=== PATIENT | female | born 1935 | race Caucasian/White ===

== ENCOUNTER → 2016-07-04 | Day surgery (SDC) | payer MEDICARE ==
[~2016-07-04] VITALS: Ht 157.5 cm; Wt 59.0 kg
[~2016-07-04] MED LIST: ASPI81TA85 PO; LIDOCAINE 1% MDV 20ML VIAL As Ordered ONE; LIDOCAINE 2% INJ 100 MG/5 ML SDV (FOR ANES.) As Ordered ONE; LR 1,000 ML IV SCH; MIDAZOLAM INJ 2 MG/2 ML VIAL (J2250) As Ordered ONE; OMEP20CA3 PO; ONDANSETRON 4MG/2ML VIAL (J2405) As Ordered ONE; PROPOFOL 200 MG/20 ML VIAL As Ordered ONE; TAMO20TA4 PO; VITA400T2 PO; VITAD1000T PO; fentaNYL 100 MCG/2 ML INJECTION (J3010) As Ordered ONE
[2016-07-04 10:15] VITALS: BP 190/83
--- NOTE | 2016-07-04 10:26 | RO ---
DATE OF PROCEDURE: 07/04/2016 PREOPERATIVE DIAGNOSIS: Endometrial hyperplasia. POSTOPERATIVE DIAGNOSIS: Endometrial hyperplasia. PROCEDURE: Hysteroscopy, dilation and curettage (D and C). SURGEON: Dr. Remi Sarabia STOCK PATCH SAWYER: ANESTHESIA: Local sedation. ESTIMATED BLOOD LOSS: Minimal. FINDINGS: Normal appearing endometrial cavity. Significant vaginal atrophy. Normal sized uterus. OPERATIVE SUMMARY: The patient taken to the operating room where IV sedation was given. She was prepped and draped in sterile fashion in the dorsal lithotomy position. Speculum was placed in the vagina. Cervix was injected circumferentially with 18 mL of 1% lidocaine. The anterior lip of the cervix grasped with a tenaculum. The cervix was dilated with tapered dilators. Diagnostic hysteroscope using normal saline as a distention medium was placed through the internal os. Visualization of the endometrial cavity revealed the findings noted above. Sharp curettage was performed. The specimen was sent to pathology. All instruments were removed. Sponge and instrument counts were correct.
== END | disposition home or self-care (01) ==
LOC: M SDC 06:30
PROVIDERS: ATTEND Specialist
DX: N85.00 Endometrial hyperplasia, unspecified (principal); M12.9 Arthropathy, unspecified; C50.919 Malignant neoplasm of unspecified site of unspecified female breast; K21.9 Gastro-esophageal reflux disease without esophagitis; Z91.040 Latex allergy status; Z88.1 Allergy status to other antibiotic agents; Z79.899 Other long term (current) drug therapy; Z79.82 Long term (current) use of aspirin; Z98.51 Tubal ligation status; I71.4 Abdominal aortic aneurysm, without rupture
CPT/HCPCS: 36415; 58558; 85014; 85018; 88305; J2250; J2405; J3010

== ENCOUNTER → 2016-08-15 | Outpatient (CLI) | payer MEDICARE ==
[~2016-08-15] MED LIST changes: -LIDOCAINE 1% MDV 20ML VIAL As Ordered ONE; -LIDOCAINE 2% INJ 100 MG/5 ML SDV (FOR ANES.) As Ordered ONE; -LR 1,000 ML IV SCH; -MIDAZOLAM INJ 2 MG/2 ML VIAL (J2250) As Ordered ONE; -ONDANSETRON 4MG/2ML VIAL (J2405) As Ordered ONE; -PROPOFOL 200 MG/20 ML VIAL As Ordered ONE; -fentaNYL 100 MCG/2 ML INJECTION (J3010) As Ordered ONE
--- NOTE | 2016-08-15 09:44 | REPMRS ---
Patient History The patient states she had a clinical breast exam in 03/2016. 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 No known family history of cancer. Benign radio exam breast specimen of the right breast, November 26, 2013. Benign localization of breast nodule of the right breast, November 26, 2013. Malignant radio exam breast specimen of the right breast, October 10, 2013. Malignant stereotatic loc for ea lesion of the right breast, October 10, 2013. Taking tamoxifen for 2 years. Digital Woman Screen Mammo: August 15, 2016 - Exam #: [id number] Bilateral CC and MLO view(s) were taken. Technologist: Sarah Arias, Technologist Prior study comparison: September 03, 2015, digital woman screen mammo performed at [facility]. September 01, 2014, digital woman screen mammo performed at [facility]. FINDINGS: There are scattered fibroglandular densities. There has been no change in the appearance of the mammogram from the prior studies. There is a mild amount of residual fibroglandular tissue which is fairly symmetric. There is no interval development of dominant mass, architectural distortion, or clustered microcalcification suggestive of malignancy. ASSESSMENT: BI-RADS/ACR category 1 mammogram. Negative. Recommendation Routine screening mammogram in 1 year (for women over age 40). This mammogram was interpreted with the aid of an FDA-approved computer-aided dectection system. Electronically Signed By: Leonard Burdick MD 08/15/16 0943
== END ==
LOC: M WHC 09:02
PROVIDERS: ATTEND Internal Medicine Medical Oncology
DX: Z12.31 Encounter for screening mammogram for malignant neoplasm of breast (principal); Z78.0 Asymptomatic menopausal state; Z79.810 Long term (current) use of selective estrogen receptor modulators (SERMs); Z85.3 Personal history of malignant neoplasm of breast

== ENCOUNTER → 2016-10-03 | Outpatient (REF) | payer MEDICARE | LOC: M LAB REF 16:58 | PROVIDERS: ATTEND Surgery | DX: D48.5 Neoplasm of uncertain behavior of skin (principal) ==

== ENCOUNTER → 2017-02-14 | Outpatient (REF) | payer MEDICARE ==
[~2017-02-14] MED LIST changes: +AMLO5TAB2 PO; +CALC600T31 PO; +CALC600T57 PO; +IBUPOTC PO; +STOO1CAP9 PO; +VITA100067 PO; +VITMTA PO
[2017-02-14 19:55] LABS: ALBUMIN 3.1 GM/DL (3.2-5.2); ALBUMIN/GLOBULIN RATIO 0.89 (1.00-1.93); ALKALINE PHOSPHATASE 298 U/L (45-117); ALT/SGPT 131 U/L (12-78); ANION GAP 7 MEQ/L (8-16); AST/SGOT 64 U/L (15-37); BILIRUBIN,TOTAL 0.7 MG/DL (0.2-1.0); BLOOD UREA NITROGEN 24 MG/DL (7-18); CALCIUM LEVEL 8.8 MG/DL (8.8-10.2); CARBON DIOXIDE LEVEL 29 MEQ/L (21-32); CHLORIDE LEVEL 111 MEQ/L (98-107); CHOLESTEROL LEVEL 251 MG/DL (<200); CREATININE FOR GFR 0.93 MG/DL (0.55-1.02); GLOMERULAR FILTRATION RATE > 60.0 (>32); GLUCOSE, FASTING 121 MG/DL (83-110); MEAN CORPUSCULAR HEMOGLOBIN 28.6 pg (27.0-33.0); MEAN CORPUSCULAR HGB CONC 32.4 g/dl (32.0-36.5); MEAN CORPUSCULAR VOLUME 88.2 fl (80.0-96.0); POTASSIUM SERUM 4.4 MEQ/L (3.5-5.1); RED CELL DISTRIBUTION WIDTH 13.4 % (11.5-14.5); SODIUM LEVEL 147 MEQ/L (136-145); TOTAL PROTEIN 6.6 GM/DL (6.4-8.2); TRIGLYCERIDES LEVEL 270 MG/DL (<150); WHITE BLOOD COUNT 4.5 K/mm3 (4.0-10.0)
== END ==
LOC: M SFHCADAM 13:44
PROVIDERS: ATTEND Family Medicine
DX: R50.9 Fever, unspecified (principal); E78.2 Mixed hyperlipidemia

== ENCOUNTER 2017-02-16 10:04 | Emergency (ER) | payer MEDICARE ==
[~2017-02-16] VITALS: Ht 167.6 cm; Wt 56.8 kg
[~2017-02-16 10:04] MED LIST changes: -AMLO5TAB2 PO; -CALC600T31 PO; -CALC600T57 PO; -IBUPOTC PO; -STOO1CAP9 PO; -VITA100067 PO; -VITMTA PO
[2017-02-16] MEDS ORDERED: ASPIRIN 81 MG CHEW TABLET PO ONE (10:30)
[2017-02-16] MEDS ORDERED: NS 500 ML IV ONE (10:30)
[2017-02-16] MEDS ORDERED: ACETAMINOPHEN 650 MG SUPP PR ONE (10:45)
--- NOTE | 2017-02-16 11:14 | REP ---
Clinical: Chest pain . Comparison: 06/09/2008 . Findings: The mediastinum and cardiac silhouette are stable and within normal limits for portable technique. The lung fitzgerald are clear without acute consolidation, effusion, or pneumothorax. Skeletal structures are intact. Impression: No acute cardiopulmonary process appreciated. Signed by Abdirashid Galvan MD 02/16/2017 11:05 A
[2017-02-16 11:42] LABS: WHITE BLOOD COUNT 16.6 K/mm3 (4.0-10.0)
[2017-02-16 11:43] LABS: BASO % 0.1 % (0.0-1.0); EOS # 0.1 K/mm3 (0.0-0.50); EOS % 0.5 % (0.0-3.0); LARGE UNSTAINED CELL % 0.5 % (0.0-4.0); LYMPH # 0.3 K/mm3 (1.5-4.5); MEAN CORPUSCULAR HEMOGLOBIN 28.8 pg (27.0-33.0); MEAN CORPUSCULAR HGB CONC 33.3 g/dl (32.0-36.5); MEAN CORPUSCULAR VOLUME 86.6 fl (80.0-96.0); MONO # 0.7 K/mm3 (0.0-0.8); MONO % 4.1 % (0.0-5.0); NEUTROPHILS # 15.4 K/mm3 (1.8-7.7); NEUTROPHILS % 92.8 % (36.0-66.0); PLATELET COUNT, AUTOMATED 226 k/mm3 (150-450); RED CELL DISTRIBUTION WIDTH 13.4 % (11.5-14.5)
[2017-02-16 11:44] LABS: ADD MANUAL DIFFER NO; DIFF SLIDE NUMBER 215; LARGE UNSTAINED CELL # 0.1 K/mm3 (0.0-0.4)
[2017-02-16 11:49] LABS: INR 0.97
[2017-02-16 12:24] LABS: ALBUMIN 3.1 GM/DL (3.2-5.2); ALBUMIN/GLOBULIN RATIO 0.91 (1.00-1.93); ALKALINE PHOSPHATASE 339 U/L (45-117); ALT/SGPT 173 U/L (12-78); ANION GAP 6 MEQ/L (8-16); AST/SGOT 126 U/L (15-37); BILIRUBIN,DIRECT 7.3 MG/DL (0.0-0.2); BILIRUBIN,TOTAL 9.2 MG/DL (0.2-1.0); BLOOD UREA NITROGEN 21 MG/DL (7-18); CALCIUM LEVEL 8.7 MG/DL (8.8-10.2); CARBON DIOXIDE LEVEL 29 MEQ/L (21-32); CHLORIDE LEVEL 105 MEQ/L (98-107); GLOMERULAR FILTRATION RATE 56.8 (>32); GLUCOSE, FASTING 151 MG/DL (83-110); POTASSIUM SERUM 3.5 MEQ/L (3.5-5.1); SODIUM LEVEL 140 MEQ/L (136-145); TOTAL PROTEIN 6.5 GM/DL (6.4-8.2)
[2017-02-16] MEDS ORDERED: ISOVUE-370 76% 100ML VIAL (Q9967) As Ordered ONE (12:37)
--- NOTE | 2017-02-16 13:15 | REP ---
Clinical: Chest and epigastric pain radiating to the back. Evaluate for pathology including aortic aneurysm/dissection. Technique: Axial contrast enhanced images from the thoracic inlet to the upper abdomen using 100 ml Isovue 370 intravenous contrast material with imaging in the arterial phase of enhancement. Coronal and sagittal re-formations subsequently obtained. Findings: The pulmonary arteries are well enhanced and without evidence for pulmonary embolus. The thoracic aorta demonstrates mild mural thrombus and scattered calcified atheromatous changes without aneurysm or dissection. Heart and pericardium are normal and without cardiomegaly or pericardial effusion. Bilateral lung fitzgerald demonstrate chronic age-related interstitial changes and mild bronchiectasis without consolidation, pleural effusion or pneumothorax. No obvious, significant nodule or mass lesion. No axillary, hilar or mediastinal adenopathy. Surrounding musculoskeletal structures demonstrate age-related changes without focal osseous abnormality. Impression: 1. Normal pulmonary arterial vasculature and relatively normal aorta without evidence for pulmonary embolus. Mild to moderate amount of mural thrombus and scattered calcified atheromatous plaquing of the aorta is appreciated without evidence for thoracic aortic aneurysm or dissection. 2. Lung fitzgerald demonstrate chronic age-related interstitial changes and mild bronchiectasis without acute mediastinal or pleuroparenchymal process. Signed by Abdirashid Galvan MD 02/16/2017 01:07 P
--- NOTE | 2017-02-16 13:26 | REP ---
Clinical: Chest and epigastric pain radiating to the back. Evaluate for pathology including aortic aneurysm/dissection. Technique: Axial contrast enhanced images from the lung bases to the pubic symphysis using 100 ml Isovue 370 intravenous contrast material with imaging in the arterial phase of enhancement. Coronal and sagittal re-formations subsequently obtained. Comparison: 03/15/2016 Findings: There is evidence for increased intrahepatic and extrahepatic biliary ductal dilatation and soft tissue filling defect in the distal common bile duct at the level of the ampulla is suggested on both axial and coronal images. Findings may be related to the patient's epigastric pain and warrant ultrasound and/or MRCP. 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 Ectasia of the more distal aorta to the level of the bifurcation remains stable and measures up to 2.8 cm maximal diameter. No periaortic fluid or inflammatory changes are appreciated to suggest acute process or change. The liver, spleen, pancreas, bilateral adrenal glands and kidneys are normal. The patient is noted to be status post cholecystectomy. The enteric system is without obstruction or acute inflammatory process although moderate amount of retained fecal material in the cecum extending to the rectosigmoid distends the rectum to 7 cm maximal diameter and may reflect associated constipation and fecal impaction. Pelvis demonstrates normal bladder. The uterus appears somewhat prominent for age and while this may reflect underlying myomatous changes, ultrasound may be warranted for further investigation. No ascites. No free air. No adenopathy. Impression: 1. Considerably increased to hepatic biliary ductal dilatation with possible filling defect in the distal common bile duct at the level of the ampulla. Ultrasound is recommended and if necessary MRCP may be considered. 2. Chronic changes to the abdominal aorta including stable saccular aneurysm and mild ectasia along with scattered atherosclerotic changes. 3. Prominent appearance to the uterus may warrant pelvic ultrasound to exclude underlying pathology. 4. Sigmoid diverticulosis and fecal stasis with possible fecal impaction at the rectosigmoid. Signed by Abdirashid Galvan MD 02/16/2017 01:18 P
[2017-02-16] MEDS ORDERED: ERTAPENEM SODIUM 1 GM in NS MINI-BAG PLUS 50 ML IV ONE (13:45)
[2017-02-16] MEDS ORDERED: VITMTA PO (13:49)
[2017-02-16] MEDS ORDERED: CALC600T31 PO (13:49)
[2017-02-16] MEDS ORDERED: IBUPOTC PO (13:49)
[2017-02-16 15:46] VITALS: BP 131/74
--- NOTE | 2017-02-16 18:30 | ECGEPIP ---
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
[2017-03-14] MEDS ORDERED: VITA100067 PO (14:43)
[2017-03-14] MEDS ORDERED: STOO1CAP9 PO (14:43)
[2017-03-14] MEDS ORDERED: CALC600T57 PO (14:43)
[2017-03-14] MEDS ORDERED: AMLO5TAB2 PO (14:43)
== END 2017-02-16 15:48 | disposition short-term general hospital (02) ==
LOC: EDBD 10:04 → M ED 10:04
DX: K83.0 Cholangitis (principal); E78.4 Other hyperlipidemia; Z85.3 Personal history of malignant neoplasm of breast
CPT/HCPCS: 71010; 71275; 74174; 80048; 80076; 82550; 82553; 83605; 83690; 83880; 84484; 85025; 85610; 85730; 87040; 87804; 93005; 93041; 94760; 96361; 96365; 99285; G0463; J1335; Q9967

== ENCOUNTER → 2017-02-28 | Outpatient (REF) | payer MEDICARE, MEDICAID ==
[~2017-02-28] MED LIST changes: +AMLO5TAB2 PO; +CALC600T31 PO; +CALC600T57 PO; +IBUPOTC PO; +STOO1CAP9 PO; +VITA100067 PO; +VITMTA PO
[2017-02-28 19:16] LABS: ALBUMIN 3.2 GM/DL (3.2-5.2); ALBUMIN/GLOBULIN RATIO 0.91 (1.00-1.93); BILIRUBIN,TOTAL 1.1 MG/DL (0.2-1.0); CALCIUM LEVEL 9.5 MG/DL (8.8-10.2); CREATININE FOR GFR 1.13 MG/DL (0.55-1.02); GLOMERULAR FILTRATION RATE 49.3 (>32); POTASSIUM SERUM 4.1 MEQ/L (3.5-5.1); TOTAL PROTEIN 6.7 GM/DL (6.4-8.2)
[2017-02-28 20:19] LABS: MEAN CORPUSCULAR HEMOGLOBIN 29.3 pg (27.0-33.0); MEAN CORPUSCULAR HGB CONC 33.5 g/dl (32.0-36.5); MEAN CORPUSCULAR VOLUME 87.3 fl (80.0-96.0); RED CELL DISTRIBUTION WIDTH 13.6 % (11.5-14.5); WHITE BLOOD COUNT 6.5 K/mm3 (4.0-10.0)
== END ==
LOC: M SFHCADAM 15:15
PROVIDERS: ATTEND Family Medicine
DX: C24.1 Malignant neoplasm of ampulla of Vater (principal); Z87.19 Personal history of other diseases of the digestive system
CPT/HCPCS: 80053; 85027; G0463

== ENCOUNTER 2017-03-16 06:39 | Outpatient (CLI) | payer MEDICARE, MEDICAID ==
[~2017-03-16] VITALS: Ht 157.5 cm; Wt 57.6 kg
[2017-03-16] MEDS ORDERED: PROPOFOL 200 MG/20 ML VIAL As Ordered ONE (07:12)
[2017-03-16] MEDS ORDERED: NS 1,000 ML IV ONE (07:15)
[2017-03-16] MEDS ORDERED: LIDOCAINE 2% INJ 100 MG/5 ML SDV (FOR ANES.) As Ordered ONE (08:19)
--- NOTE | 2017-03-16 08:36 | ROOR ---
Patient Name: Genevieve Mccloud Procedure Date: 03/16/2017 8:12 AM Date of : 1935 Age: 81 Room: [facility] Gender: Female Note Status: Finalized Procedure: Colonoscopy Indications: Abnormal CT of the GI tract Providers: Asad LAYTON MD Referring MD: Randy Manriquez MD Requesting Provider: Medicines: Monitored Anesthesia Care Complications: No immediate complications. Procedure: Pre-Anesthesia Assessment: - The heart rate, respiratory rate, oxygen saturations, blood pressure, adequacy of pulmonary ventilation, and response to care were monitored throughout the procedure. The Colonoscope was introduced through the anus and advanced to 6 cm into the ileum. The colonoscopy was performed without difficulty. The patient tolerated the procedure well. The quality of the bowel preparation was good. Findings: The perianal and digital rectal examinations were normal. The entire examined colon appeared normal on direct and retroflexion views. The terminal ileum appeared normal. Mild diverticulosis and small internal hemorrhoids. There is no endoscopic evidence of any other abnormality in the ascending colon and in the cecum. Impression: - The entire examined colon is normal on direct and retroflexion views. - The examined portion of the ileum was normal. - Mild diverticulosis and small internal hemorrhoids. - No specimens collected. Recommendation: - Patient has a contact number available for emergencies. The signs and symptoms of potential delayed complications were discussed with the patient. Return to normal activities tomorrow. Written discharge instructions were provided to the patient. - Return to referring physician as previously scheduled. Asad Layton MD Asad LAYTON MD 03/16/2017 8:36:26 AM This report has been signed electronically. Number of Addenda: 0 Note Initiated On: 03/16/2017 8:12 AM Estimated Blood Loss: Estimated blood loss: none.
[2017-03-16 08:50] VITALS: BP 149/71
== END 2017-03-16 08:55 | disposition home or self-care (01) ==
LOC: M OPP 06:39
PROVIDERS: ATTEND Internal Medicine Gastroenterology
DX: R93.3 Abnormal findings on diagnostic imaging of other parts of digestive tract (principal); K57.30 Diverticulosis of large intestine without perforation or abscess without bleeding; K64.8 Other hemorrhoids; I10 Essential (primary) hypertension; E55.9 Vitamin D deficiency, unspecified; K21.9 Gastro-esophageal reflux disease without esophagitis; M79.7 Fibromyalgia; Z85.3 Personal history of malignant neoplasm of breast; Z86.79 Personal history of other diseases of the circulatory system; Z79.82 Long term (current) use of aspirin; Z79.899 Other long term (current) drug therapy; Z88.1 Allergy status to other antibiotic agents; Z91.040 Latex allergy status

== ENCOUNTER → 2017-05-12 | Outpatient (REF) | payer MEDICARE, MEDICAID | LOC: M LAB REF 15:28 | PROVIDERS: ATTEND Nurse Practitioner Acute Care | DX: R19.7 Diarrhea, unspecified (principal) ==

== ENCOUNTER → 2017-06-15 | Outpatient (CLI) | payer MEDICARE, MEDICAID ==
[2017-06-15 16:39] LABS: PARTIAL THROMBOPLASTIN TIME 32.4 SECONDS (26.8-37.9)
[2017-06-15 16:56] LABS: INR 1.11; PROTHROMBIN TIME 14.5 SECONDS (12.4-14.5)
== END ==
LOC: M WUC 13:54
DX: C25.9 Malignant neoplasm of pancreas, unspecified (principal)
CPT/HCPCS: 85610

== ENCOUNTER → 2017-06-22 | Outpatient (REF) | payer MEDICARE, MEDICAID ==
[2017-06-23 17:27] LABS: CA19-9 TUMOR MARKER,CARBOHYDRA 4.9 U/ML (<35.0)
== END ==
LOC: M LAB REF 17:00
DX: C17.0 Malignant neoplasm of duodenum (principal); C24.1 Malignant neoplasm of ampulla of Vater
CPT/HCPCS: 86301

== ENCOUNTER → 2017-09-28 | Outpatient (CLI) | payer MEDICARE, MEDICAID ==
[~2017-09-28] MED LIST changes: -AMLO5TAB2 PO; -ASPI81TA85 PO; -CALC600T31 PO; -CALC600T57 PO; +GASTROGRAFIN SOLUTION 30ML (Q9963) As Ordered; -IBUPOTC PO; +ISOVUE-370 76% 100ML VIAL (Q9967) As Ordered; -OMEP20CA3 PO; -STOO1CAP9 PO; -TAMO20TA4 PO; -VITA100067 PO; -VITA400T2 PO; -VITAD1000T PO; -VITMTA PO
== END ==
LOC: M RAD 08:20
DX: C24.1 Malignant neoplasm of ampulla of Vater (principal); Z98.890 Other specified postprocedural states; N28.1 Cyst of kidney, acquired; K57.30 Diverticulosis of large intestine without perforation or abscess without bleeding; I71.9 Aortic aneurysm of unspecified site, without rupture
CPT/HCPCS: Q9963

== ENCOUNTER → 2017-12-01 | Outpatient (REF) | payer MEDICARE, MEDICAID ==
[2017-12-01 14:22] LABS: CA19-9 TUMOR MARKER,CARBOHYDRA 3.2 U/ML (<35.0)
== END ==
LOC: M LAB REF 13:17
DX: C24.1 Malignant neoplasm of ampulla of Vater (principal); D05.11 Intraductal carcinoma in situ of right breast
CPT/HCPCS: 86301

== ENCOUNTER → 2017-12-04 | Outpatient (CLI) | payer MEDICARE, MEDICAID | LOC: M WHC 14:30 | DX: Z12.31 Encounter for screening mammogram for malignant neoplasm of breast (principal); Z85.3 Personal history of malignant neoplasm of breast; Z92.21 Personal history of antineoplastic chemotherapy | CPT/HCPCS: 77067 ==

== ENCOUNTER → 2018-02-20 | Outpatient (REF) | payer MEDICARE, MEDICAID ==
[2018-02-23 12:38] LABS: CA19-9 TUMOR MARKER,CARBOHYDRA 7.8 U/ML (<35.0)
== END ==
LOC: M LAB REF 17:07
DX: C50.411 Malignant neoplasm of upper-outer quadrant of right female breast (principal); Z17.0 Estrogen receptor positive status [ER+]
CPT/HCPCS: 86301

== ENCOUNTER → 2018-02-26 | Outpatient (CLI) | payer MEDICARE, MEDICAID | LOC: M RAD 12:40 | DX: C50.919 Malignant neoplasm of unspecified site of unspecified female breast (principal); C24.1 Malignant neoplasm of ampulla of Vater; R91.8 Other nonspecific abnormal finding of lung field; I71.4 Abdominal aortic aneurysm, without rupture | CPT/HCPCS: Q9963 ==

== ENCOUNTER → 2018-03-06 | Outpatient (CLI) | payer MEDICARE, MEDICAID | LOC: M PLARAD 09:13 | DX: R91.1 Solitary pulmonary nodule (principal); Z85.3 Personal history of malignant neoplasm of breast; Z85.09 Personal history of malignant neoplasm of other digestive organs | CPT/HCPCS: 78815 ==

== ENCOUNTER 2018-07-10 06:06 | Day surgery (SDC) | payer MEDICARE, MEDICAID ==
[~2018-07-10] VITALS: Ht 157.5 cm; Wt 46.9 kg
[~2018-07-10 06:06] MED LIST changes: +AMLO5TAB6 PO; +ASPI81TA85 PO; +CALC600T31 PO; +CALC600T57 PO; +CARV6.25 PO; +CENTCHW3 PO; -GASTROGRAFIN SOLUTION 30ML (Q9963) As Ordered; +IBUPOTC PO; -ISOVUE-370 76% 100ML VIAL (Q9967) As Ordered; +LR 1,000 ML IV ONE; +OMEP20CA3 PO; +PANT40TA3 PO; +STOO1CAP9 PO; +TAMO20TA8 PO; +VITA100067 PO; +VITA400T2 PO; +VITAD1000T PO; +VITMTA PO
[2018-07-10] MEDS ORDERED: LIDOCAINE VISCOUS 2% SOLN 15ML UDC As Ordered ONE (07:23)
[2018-07-10] MEDS ORDERED: CETACAINE SPRAY 5GM As Ordered ONE (07:23)
[2018-07-10] MEDS ORDERED: THROMBIN SOLN 5,000 UNITS VIAL As Ordered ONE (07:23)
[2018-07-10] MEDS ORDERED: LIDOCAINE 1% SDV INJ 30 ML VIAL As Ordered ONE (07:23)
[2018-07-10] MEDS ORDERED: EPINEPHrine 1MG/10ML SYRINGE 1.5IN As Ordered ONE (07:23)
--- NOTE | 2018-07-10 09:10 | REP ---
Clinical: Postoperative assessment . Comparison: 02/16/2017 . Findings: The mediastinum and cardiac silhouette are stable. [id number] identified with tip in the SVC. The lung fitzgerald demonstrate chronic interstitial changes without acute consolidation, effusion, or pneumothorax. Skeletal structures are intact. Impression: No acute cardiopulmonary process appreciated. Electronically Signed by Abdirashid Galvan MD 07/10/2018 09:00 A
[2018-07-10] MEDS ORDERED: LR 1,000 ML IV SCH (09:15)
[2018-07-10] MEDS ORDERED: fentaNYL 100 MCG/2 ML INJECTION (J3010) IV PRN (09:15)
[2018-07-10] MEDS ORDERED: PERCOCET 5MG/325MG TAB PO PRN (09:15)
[2018-07-10] MEDS ORDERED: ONDANSETRON 4MG/2ML VIAL (J2405) IV PRN (09:15)
[2018-07-10 10:00] VITALS: BP 168/85
--- NOTE | 2018-07-11 08:33 | RO ---
DATE OF PROCEDURE: 07/10/2018 PREOPERATIVE DIAGNOSES: Abnormal chest CT, left upper lobe nodule. POSTOPERATIVE DIAGNOSES: Abnormal chest CT, left upper lobe nodule. FINDINGS: Normal airways. PROCEDURE: Bronchoscopy with electromagnetic navigation, endobronchial ultrasound. SURGEON: Dr. Antione Pickett MANAGER OF ENTERPRISE: None ANESTHESIA: General, please refer to their notes for details. SPECIMENS OBTAINED: Bronchoalveolar lavage (BAL) of the left upper lobe. DESCRIPTION OF PROCEDURE: After informed consent was reviewed with the patient in the preoperative area, she was brought back to operating room (OR) #6, which is a pre-mapped room. Time-out was performed with two patient identifiers, identifying correct site, correct procedure. Anesthesia was initiated, intubated with an 8.5 endotracheal tube, and case was handed over to me. Cetacaine spray was used to anesthetize the airway, provide lubrication for the bronchoscope. Time-out again was performed with two patient identifiers, identifying correct site, correct procedure. The 1T190 bronchoscope was then inserted into the airway. Trachea was midline. Geovanna was sharp. Right and left mainstem bronchi were normal. No excessive secretions. RB 1-10 was normal except for anatomic variation. There were no endobronchial lesions. LB 1-10 also normal without endobronchial lesions. There was a minimal amount of white sloughing of the superior basal segment on the left. No mass. No hemorrhage or significant mucus. Navigation was then initiated; the patient's name confirmed on the screen and date of . Guide was then inserted. Automatic registration was performed. Attempted navigation of the left upper lobe lesion, however, was not able to come within close enough proximity to obtain a biopsy despite multiple attempts and multiple attempts at re-navigation. I then removed the navigation guide and attempted traditional bronchoscopy. Again, could not obtain proximity to the lesion. Therefore, bronchoalveolar lavage of the left upper lobe was performed. The 1T190 bronchoscope was then removed. Endobronchial ultrasound was inserted without the balloon as the patient has a latex allergy. The subcarinal, 4R, 4L ,and hilar regions were viewed without significant adenopathy. The bronchoscope was then removed. No further biopsy was performed. Patient is in recovery awaiting chest x-ray. [facility]
== END 2018-07-10 10:20 | disposition home or self-care (01) ==
LOC: M SDC 06:06
PROVIDERS: ATTEND Internal Medicine Pulmonary Disease
DX: R91.1 Solitary pulmonary nodule (principal); I10 Essential (primary) hypertension; M79.7 Fibromyalgia; Z91.040 Latex allergy status; Z92.21 Personal history of antineoplastic chemotherapy; Z85.3 Personal history of malignant neoplasm of breast; Z79.82 Long term (current) use of aspirin; Z79.899 Other long term (current) drug therapy; I71.4 Abdominal aortic aneurysm, without rupture
CPT/HCPCS: 31624; 31627; 31652; 71045; 76000; 87070; 87102; 87116; 87205; 87206; 88108; 88313; J1100; J2250; J2710; J3010

== ENCOUNTER → 2018-07-17 | Outpatient (REF) | payer MEDICARE, MEDICAID ==
[~2018-07-17] MED LIST changes: -LR 1,000 ML IV ONE
[2018-07-17 21:08] LABS: PROTHROMBIN TIME 13.3 SECONDS (12.1-14.4)
[2018-07-17 21:09] LABS: PARTIAL THROMBOPLASTIN TIME 31.5 SECONDS (25.4-37.6)
== END ==
LOC: M LAB REF 17:03
PROVIDERS: ATTEND Internal Medicine Pulmonary Disease
DX: R91.8 Other nonspecific abnormal finding of lung field (principal); Z79.01 Long term (current) use of anticoagulants

== ENCOUNTER → 2018-07-30 | Outpatient (CLI) | payer MEDICARE, MEDICAID ==
[~2018-07-30] MED LIST changes: +LIDOCAINE 1% MDV 20ML VIAL As Ordered ONE
--- NOTE | 2018-07-30 11:48 | REP ---
POST-BIOPSY CHEST: 07/30/2018. Comparison: CT guided needle biopsy images 07/30/2018, portable chest 07/10/2018. Clinical history: Status post transthoracic needle biopsy right lung. Small intraprocedural pneumothorax seen on CT. Findings: Indwelling port catheter via the jugular route, unchanged. There is a small right pneumothorax with the apex air gap 3 cm and 9 mm at the level of the aortic arch in the right side. Left lung, unchanged. No tension component. No subpulmonic component to the pneumothorax. Heart, mediastinal contour, aorta and airway unchanged. Impression: 1. Small right apical and lateral pneumothorax without tension component. The air gap 3 cm at the apex, 9 mm laterally in the upper lung zone at the level of the aortic arch. The patient is on oxygen, fairly comfortable and being monitored and will followup with a chest x-ray in 2 hours. Electronically Signed by Bebeto Busby MD 07/30/2018 05:53 P
--- NOTE | 2018-07-30 13:46 | REP ---
POST-BIOPSY CHEST: 07/20/2018 at 12:58 PM. Clinical history: Status post transthoracic lung biopsy with small right apical pneumothorax. Two hour follow-up from the immediate post procedure film. Findings: Indwelling port catheter via the right jugular route, unchanged. Inspiratory and expiratory images show some underlying fibrosis heaviest in the bases. There is a small pneumothorax persisting. The apical air gap now measures 27 mm on the expiratory film, previously 31 mm, therefore slightly smaller or the same. There are no other changes. There is no effusion. There is no tension component. Impression: 1. Stable to slightly smaller right apical pneumothorax status post transthoracic needle biopsy right lung nodule. Right apex air gap now 2.7 cm, it was 3.1 cm on expiratory film 2 hours ago. She is comfortable and without dyspnea or chest pain currently. We will discuss with her attending physician these findings prior to our plan to send her home, unless the attending physician has another plan for her. Electronically Signed by Bebeto Busby MD 07/30/2018 05:57 P
--- NOTE | 2018-07-30 17:55 | REP ---
CT-GUIDED RIGHT LOWER LOBE LUNG BIOPSY The procedure was performed under the direct supervision of Dr. Busby. The patient has a history of scattered nodules in the throughout the lungs bilaterally seen on a previous CT scan dated 06/14/2018. The risks and benefits of the procedure were explained to the patient and informed consent was obtained. A 1 cm nodule in the right lower lobe was requested for biopsy. The right lower lobe lung nodule was localized using CT guidance. The skin was prepped and draped in a sterile fashion. 1% lidocaine was used as a local anesthetic. Using CT guidance a 19/20 gauge coaxial needle biopsy system was inserted and advanced into the nodule. Four core biopsy samples were obtained and sent to lab. The patient did develop a right pneumothorax. A short tubing and 60 ml syringe was connected to the cannula and as much air as possible was aspirated from the pleural space. Follow-up CT images demonstrate some resolution of the pneumothorax. CT scan performed 5 minutes later shows a slight increase of the right pneumothorax. The patient stated she had pain at three out of 10. Her O2 saturations were 98% on room air. The patient was placed on 2 liters of O2 via nasal cannula. Chest x-ray performed immediately after the procedure shows a small right apical and lateral pneumothorax. Chest x-ray performed 2 hours later demonstrates a stable to slightly smaller right apical pneumothorax. The patient's pain decreased to a 1-2/10. Her O2 saturations were 98% on room air. A vital signs were stable. Dr. Pickett was made aware of these findings at the time of the procedure. The patient will follow-up with Dr. Pickett. After the appropriate amount of monitored convalescence the patient was discharged from the department. Reviewed by JL De Los Santos 07/30/2018 04:51 P Electronically Signed by Bebeto Busby MD 07/30/2018 05:46 P
== END ==
LOC: M RADPRO 09:16
PROVIDERS: ATTEND Internal Medicine Pulmonary Disease
DX: C78.01 Secondary malignant neoplasm of right lung (principal); J95.811 Postprocedural pneumothorax; Z85.09 Personal history of malignant neoplasm of other digestive organs; Z79.899 Other long term (current) drug therapy; Z79.82 Long term (current) use of aspirin; Z88.8 Allergy status to other drugs, medicaments and biological substances; Z91.040 Latex allergy status

== ENCOUNTER → 2018-08-02 | Outpatient (CLI) | payer MEDICARE, MEDICAID ==
[~2018-08-02] MED LIST changes: -LIDOCAINE 1% MDV 20ML VIAL As Ordered ONE
--- NOTE | 2018-08-03 11:49 | REP ---
Clinical: Status post procedure for pneumothorax evaluation. Comparison: 07/30/2018. Technique: PA and lateral. Findings: A small residual right apical pneumothorax is identified and is minimally decreased when compared to prior examination. Lung fitzgerald demonstrate diffuse chronic interstitial changes. Elevation. No effusion. Mediastinum and cardiac silhouette are within normal limits and stable. [id number] identified with tip in the SVC. Impression: Small residual right apical pneumothorax decreased from prior examination. Electronically Signed by Abdirashid Galvan MD 08/03/2018 11:41 A
== END ==
LOC: M SMT 15:11
PROVIDERS: ATTEND Internal Medicine Pulmonary Disease
DX: J95.811 Postprocedural pneumothorax (principal)

== ENCOUNTER → 2018-08-15 | Outpatient (CLI) | payer MEDICARE, MEDICAID ==
--- NOTE | 2018-08-15 15:05 | REP ---
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 Increasing size of bilateral pulmonary nodules. Status post CT guided needle biopsy of a pulmonary nodule positive for metastatic adenocarcinoma. Comparisons: Comparison PET-CT study March 06, 2018. TECHNIQUE: 50 minutes following the intravenous injection of a 9.03 mCi dose of F-18 FDG, three-dimensional PET scintigraphy is acquired from the skull base to the proximal thighs. Triplanar noncontrast CT scanning is acquired through the same anatomic range for attenuation correction, and image registration with scan parameters optimized to minimize radiation exposure to the patient. PET scintigraphy and CT datasets were fused and displayed on a workstation with multiplanar and projection display capability. PET/CT Findings: There is a mildly hypermetabolic 1 cm lymph node anterior and medial to the proximal descending aorta adjacent to the mid thoracic spine. Maximum standard uptake value here is 3.3. The left upper lobe pulmonary nodule shows visible but not hypermetabolic at the FDG accumulation, maximum standard uptake value 1.77. A peripheral pleural-based nodule in the right lower lobe is hypermetabolic today with maximum standard uptake value 3.39. A smaller peripheral pleural-based nodule in the right lower lobe is not hypermetabolic, 1.34. A third posterior inferior right lower lobe nodule shows similar visible but nonhypermetabolic uptake, 1.57. There is a hypermetabolic peripheral nodule in the right middle lobe, maximum standard uptake value 3.08. There is no other abnormal hypermetabolic uptake in the chest. No abnormal uptake is seen in the head and neck soft tissues. In the abdomen and pelvis, there is no abnormal hypermetabolic uptake focus seen. Impression: Mildly hypermetabolic uptake is noted in several of the patient's pulmonary nodules consistent with pulmonary metastases. There is a paraesophageal periaortic lymph node in the posterior mediastinum which also is mildly hypermetabolic today. Electronically Signed by Clemente Saleh MD 08/15/2018 05:07 P
== END ==
LOC: M PLARAD 11:27
PROVIDERS: ATTEND Internal Medicine Hematology & Oncology
DX: C78.02 Secondary malignant neoplasm of left lung (principal)
CPT/HCPCS: 78815; A9552

== ENCOUNTER → 2018-09-14 | Outpatient (REF) | payer MEDICARE, OTHER ==
[2018-09-14 14:55] LABS: HEMATOCRIT 34.1 % (36.0-47.0); HEMOGLOBIN 10.6 g/dl (12.0-15.5); MEAN CORPUSCULAR HEMOGLOBIN 26.4 pg (27.0-33.0); MEAN CORPUSCULAR HGB CONC 31.1 g/dl (32.0-36.5); PLATELET COUNT, AUTOMATED 239 10^3/uL (150-450); RED BLOOD COUNT 4.01 10^6/uL (4.00-5.40); WHITE BLOOD COUNT 6.1 10^3/uL (4.0-10.0)
[2018-09-14 15:26] LABS: ALBUMIN 3.3 GM/DL (3.2-5.2); ALT/SGPT 25 U/L (12-78); BILIRUBIN,TOTAL 0.6 MG/DL (0.2-1.0); BLOOD UREA NITROGEN 20 MG/DL (7-18); CALCIUM LEVEL 8.6 MG/DL (8.8-10.2); CARBON DIOXIDE LEVEL 27 MEQ/L (21-32); CHLORIDE LEVEL 110 MEQ/L (98-107); CREATININE FOR GFR 0.82 MG/DL (0.55-1.30); FREE T4 0.92 NG/DL (0.76-1.46); GLOMERULAR FILTRATION RATE > 60.0 (>32); GLUCOSE, FASTING 145 MG/DL (70-100); POTASSIUM SERUM 4.1 MEQ/L (3.5-5.1); SODIUM LEVEL 144 MEQ/L (136-145); TOTAL PROTEIN 6.2 GM/DL (6.4-8.2)
[2018-09-14 15:27] LABS: FOLATE > 24.0 NG/ML (>5.4); TOTAL 25(OH) VITAMIN D 37.2 NG/ML (30.0-100.0); VITAMIN B12 LEVEL 416 PG/ML (247-911)
== END ==
LOC: M SFHCADAM 13:47
PROVIDERS: ATTEND Family Medicine
DX: R41.3 Other amnesia (principal); E55.9 Vitamin D deficiency, unspecified

== ENCOUNTER → 2018-09-14 | Outpatient (CLI) | payer OTHER | LOC: M LAB 14:23 | PROVIDERS: ATTEND Family Medicine | DX: R41.3 Other amnesia (principal); E55.9 Vitamin D deficiency, unspecified ==

== ENCOUNTER → 2018-09-25 | Outpatient (CLI) | payer MEDICARE, MEDICAID ==
[~2018-09-25] MED LIST changes: +PROHANCE 279.3MG/ML 5ML VIAL (A9576) As Ordered ONE
--- NOTE | 2018-09-25 19:17 | REP ---
MR BRAIN WITHOUT AND WITH CONTRAST: HISTORY: Adenocarcinoma. CONTRAST: ProHance 9 mL. An area of increased signal intensity on T2-weighted images is present in the right basal ganglia. This represents an old lacunar infarction. Areas of increased signal intensity on T2-weighted images are present in the periventricular and subcortical white matter. This represents small vessel ischemic disease. There is no intraparenchymal hemorrhage, acute infarct, mass or midline shift. There is no abnormal enhancement. The ventricular system and cortical sulci are dilated consistent with mild volume loss. There is no extracerebral collection. Mucosal thickening is present in the right mastoid air cells. The visualized sinuses are clear. IMPRESSION: 1. Old right basal ganglia lacunar infarction 2. Small vessel ischemic disease. 3. Mild volume loss. Electronically Signed by Remi Quintana MD 09/25/2018 07:18 P
== END ==
LOC: M RAD 16:57
PROVIDERS: ATTEND Family Medicine
DX: Z86.73 Personal history of transient ischemic attack (TIA), and cerebral infarction without residual deficits (principal); I67.82 Cerebral ischemia; R41.3 Other amnesia; R51 Headache; Z85.118 Personal history of other malignant neoplasm of bronchus and lung
CPT/HCPCS: 70553; A9576

== ENCOUNTER → 2018-11-02 | Outpatient (CLI) | payer MEDICARE, MEDICAID ==
[~2018-11-02] MED LIST changes: -PROHANCE 279.3MG/ML 5ML VIAL (A9576) As Ordered ONE
--- NOTE | 2018-11-02 09:08 | REP ---
Clinical: Follow up abdominal aortic aneurysm. Technique: Real time tejeda scale and color evaluation using curved array transducer. Findings: Diffuse atherosclerotic changes are appreciated. A somewhat bilobed/fusiform infrarenal abdominal aortic aneurysm is again identified measuring approximately 3.3 x 4.8 cm maximal diameter and 7.2 cm in craniocaudal length. Aneurysm originates approximately 3.5 cm from the main renal arteries and terminates above the level of the common iliac arteries. No obvious periaortic fluid is appreciated. Proximal aorta 2.3 x 2.2 cm. Mid aorta (renal artery level) 1.9 x 2.2 cm. Mid aorta 3.3 x 4.8 cm. (Area of aneurysm) Distal aorta 2.8 x 2.0 cm. Right common iliac artery 1.1 x 1.0 cm maximal diameter. Left common iliac artery 1.0 x 1.0 I cm maximal diameter. Impression: Atheromatous changes throughout the abdominal aorta. Fusiform infrarenal abdominal aortic aneurysm appears slightly increased when compared with CT dated 2018. Electronically Signed by Abdirashid Galvan MD 11/02/2018 09:00 A
== END ==
LOC: M RAD 06:37
PROVIDERS: ATTEND Family Medicine
DX: I71.4 Abdominal aortic aneurysm, without rupture (principal)

== ENCOUNTER → 2018-11-22 | Outpatient (CLI) | payer MEDICARE, MEDICAID ==
--- NOTE | 2018-11-22 10:25 | REP ---
CT abdomen and pelvis without contrast: CT abdomen and pelvis performed without IV contrast. Sagittal and coronal reconstruction images are performed. Comparison is moves all extremities with a prior study of 02/26/2018. A pulmonary nodule in the right lower lobe on image 3 is new measuring 7 mm in diameter. There is increased size of an oval nodular opacity in the medial segment of the right middle lobe on image 6 measuring 1.9 x 1.2 cm. Posterior right lower lobe nodule measures 9 mm on image 12 and has increased in size since the prior study of 06/14/2018. Two adjacent new nodules in the right lower lobe measure 6 and 5 mm in diameter. Another more inferiorly measures 6 mm. There appears to be a tiny calcified granuloma in the left lower lobe. Liver is grossly unchanged. Calcified granulomas are seen in the spleen. The adrenals are unremarkable. There is again apparent dilatation of the pancreatic duct unchanged. Parapelvic cysts are again seen in the left kidney. There is a bilobed aneurysm of the abdominal aorta below the level of the renal arteries with the upper aspect measuring 3.2 x 3.9 cm and the lower aspect 3.2 x 3.2 cm, unchanged. This extends to the aortic bifurcation. Common iliac arteries are normal in caliber. There is mild scattered atherosclerotic calcification of the abdominal aorta and its branches. There is no adenopathy. I see no free air or free fluid. There is no bowel wall thickening. There is sigmoid diverticulosis. No pelvic mass is seen, although there is a stable 1.8 cm cyst in the right ovary. There are mild degenerative changes of the spine without definite osseous lesion of the visualized osseous structures. IMPRESSION: Increased size of metastatic nodules in the right lung, and several new nodules present as discussed in detail above. The appearance of the abdomen and pelvis is grossly unchanged as discussed above. No change in the bilobed infrarenal abdominal aortic aneurysm. Electronically Signed by Leonard Burdick MD 11/22/2018 04:38 P
== END ==
LOC: M RAD 08:31
PROVIDERS: ATTEND Surgery Vascular Surgery
DX: I71.4 Abdominal aortic aneurysm, without rupture (principal); R91.1 Solitary pulmonary nodule

== ENCOUNTER → 2019-02-04 | Outpatient (CLI) | payer MEDICARE, MEDICAID ==
[~2019-02-04] MED LIST changes: +ASPI81CH33 PO; +CALC600T5 PO; +CARV12.5 PO; +CELE100C PO; +CHOL100029 PO; +HYDR-3715 PO; +ISOVUE-370 76% 100ML VIAL (Q9967) As Ordered ONE; +LIDO2.5C15 TOP; +OMEP1CAP73 PO; -OMEP20CA3 PO; +PANT-23 PO; -VITAD1000T PO
--- NOTE | 2019-02-05 18:02 | REP ---
Clinical: Pancreatic carcinoma with pulmonary metastases. Technique: Axial contrast enhanced images from the thoracic inlet to the upper abdomen with coronal and sagittal re-formations using 100 ml Isovue 370 intravenous contrast material. Comparison: 06/14/2018. Findings: Previously identified 10.6 mm nodule in the periphery of the right lower lobe as well as 9 mm nodule inseparable from the left major fissure have both increased in size. Multiple new scattered bilateral metastatic foci are also identified measuring up to approximately 11 mm. No effusion. No pneumothorax. Tracheobronchial tree is patent. Nonspecific mediastinal and hilar lymph nodes measure up to approximately 10 mm. Thoracic aorta without aneurysm or dissection. No cardiomegaly or pericardial effusion. Limited upper abdomen demonstrates relatively normal / stable bilateral adrenal glands and evidence for prior pneumobilia. Impression: Increasing pulmonary metastatic disease. Electronically Signed by Abdirashid Galvan MD 02/05/2019 05:53 P
== END ==
LOC: M RAD 15:03
PROVIDERS: ATTEND Internal Medicine Hematology & Oncology
DX: C50.411 Malignant neoplasm of upper-outer quadrant of right female breast (principal); R91.8 Other nonspecific abnormal finding of lung field
CPT/HCPCS: 71260; Q9967

== ENCOUNTER 2019-02-21 13:44 | Emergency (ER) | payer MEDICARE, MEDICAID ==
[~2019-02-21] VITALS: Ht 157.5 cm; Wt 48.9 kg
[2019-02-21 13:44] VITALS: BP 197/91
[~2019-02-21 13:44] MED LIST changes: -ASPI81CH33 PO; -CALC600T5 PO; -CARV12.5 PO; -CELE100C PO; -HYDR-3715 PO; -ISOVUE-370 76% 100ML VIAL (Q9967) As Ordered ONE; -OMEP1CAP73 PO; +OMEP20CA4 PO; -PANT-23 PO
== END 2019-02-21 14:25 | disposition left against medical advice (07) ==
LOC: M ED 13:44
DX: Z53.29 Procedure and treatment not carried out because of patient's decision for other reasons (principal)

== ENCOUNTER → 2019-02-26 | Outpatient (CLI) | payer MEDICARE, MEDICAID ==
--- NOTE | 2019-02-26 13:11 | REPVR ---
EXAM: CT Head Without Contrast EXAM DATE/TIME: 02/26/2019 12:23 PM CLINICAL HISTORY: 83 years old, female; Pain; Headache not specified; Additional info: Severe headahce TECHNIQUE: Imaging protocol: Computed tomography of the head without contrast. Radiation optimization: All CT scans at this facility use at least one of these dose optimization techniques: automated exposure control; mA and/or kV adjustment per patient size (includes targeted exams where dose is matched to clinical indication); or iterative reconstruction. COMPARISON: MRI-Brain W/O FOLL BY WITH 09/25/2018 5:28 PM FINDINGS: Brain: Symmetric prominence of the cortical and cerebellar sulci. Small vessel ischemic change including a chronic lacunar infarct in the head of the right caudate nucleus. No acute cortical infarct, mass effect, or intracranial hemorrhage. Ventricles: Mild ventriculomegaly. Bones/joints: No acute calvarial pathology. Sinuses: No sinus fluid. Mastoid air cells: No mastoid effusion. Soft tissues: Unremarkable soft tissues. IMPRESSION: Atrophy and small vessel ischemic change. Electronically signed by: Yung Cooley On 02/26/2019 13:11:22 PM
== END ==
LOC: M RAD 12:08
PROVIDERS: ATTEND Family Medicine
DX: I73.9 Peripheral vascular disease, unspecified (principal); G31.9 Degenerative disease of nervous system, unspecified; R51 Headache

== ENCOUNTER → 2019-02-26 | Outpatient (REF) | payer MEDICARE, MEDICAID | LOC: M SFHCPLAZ 11:22 | PROVIDERS: ATTEND Family Medicine | DX: N18.3 Chronic kidney disease, stage 3 (moderate) (principal); Z53.8 Procedure and treatment not carried out for other reasons ==

== ENCOUNTER → 2019-03-06 | Outpatient (CLI) | payer MEDICARE, MEDICAID ==
[~2019-03-06] MED LIST changes: +PROHANCE 279.3MG/ML 5ML VIAL (A9576) As Ordered ONE
--- NOTE | 2019-03-06 11:30 | REP ---
MRI BRAIN WITHOUT AND WITH IV CONTRAST: HISTORY: Severe headaches. History of pancreatic carcinoma with metastatic disease to the lungs. Comparison MRI study of the brain is from September 25, 2018. Comparison head CT study February 26, 2019. GADOLINIUM ENHANCEMENT DOSE: 5 mL, half-dose protocol, of intravenous ProHance. MRI FINDINGS: No bony calvarial lesion is seen. Craniocervical junction and upper cervical cord remain unremarkable. There is no MR evidence of significant paranasal sinus disease. No intraorbital mass lesion is observed. There is some generalized volume loss again noted. Scattered foci of periventricular T2 hyperintensity are present bilaterally consistent with small vessel atherosclerotic changes as before. There is no evidence of intracranial mass lesion. No abnormal contrast enhancement is seen to suggest intracranial metastasis. There is an old lacunar infarct in the right basal ganglia again noted unchanged. No infarct is seen on diffusion weighted scans. IMPRESSION: No acute intracranial abnormality. Old right basal ganglia lacunar infarct and small vessel changes. Minimal volume loss. No evidence of intracranial metastasis. Electronically Signed by Clemente Saleh MD 03/06/2019 03:37 P
== END ==
LOC: M RAD 09:37
PROVIDERS: ATTEND Family Medicine
DX: R51 Headache (principal); C25.9 Malignant neoplasm of pancreas, unspecified; Z86.73 Personal history of transient ischemic attack (TIA), and cerebral infarction without residual deficits
CPT/HCPCS: 70553; A9576

== ENCOUNTER → 2019-04-01 | Outpatient (CLI) | payer MEDICARE, MEDICAID ==
[~2019-04-01] MED LIST changes: +HYDR-3715 PO; -PROHANCE 279.3MG/ML 5ML VIAL (A9576) As Ordered ONE
[2019-04-01 16:37] LABS: APPEARANCE, URINE HAZY (CLEAR); BACTERIA, URINE AUTO NEGATIVE (NEGATIVE); BILIRUBIN, URINE AUTO NEGATIVE (NEGATIVE); BLOOD, URINE BLOOD NEGATIVE (NEGATIVE); CALCIUM OXALATE CRYSTALS SMALL; COLOR, URINE YELLOW (YELLOW); GLUCOSE, URINE (UA) AUTO NEGATIVE (NEGATIVE); KETONE, URINE AUTO NEGATIVE (NEGATIVE); LEUKOCYTE ESTERASE, URINE AUTO NEGATIVE (NEGATIVE); MUCUS, URINE SMALL (NEGATIVE); NITRITE, URINE AUTO NEGATIVE (NEGATIVE); PROTEIN, URINE AUTO NEGATIVE (NEGATIVE); RBC, URINE AUTO 3 /HPF (0-3); SPECIFIC GRAVITY URINE AUTO 1.021 (1.002-1.035); SQUAMOUS EPITHELIAL CELL UR AU 0 /HPF (0-6); UROBILINOGEN, URINE AUTO 0.2 mg/dL (0.0-2.0); WBC, URINE AUTO 2 /HPF (0-3)
[2019-04-01 16:39] LABS: BASO # 0.1 10^3/uL (0.0-0.2); BASO % 0.8 % (0.0-1.0); EOS # 0.4 10^3/uL (0.0-0.5); EOS % 5.7 % (0.0-3.0); HEMOGLOBIN 11.2 g/dl (12.0-15.5); LYMPH # 1.5 10^3/uL (1.5-5.0); MEAN CORPUSCULAR HEMOGLOBIN 27.1 pg (27.0-33.0); MEAN CORPUSCULAR HGB CONC 30.3 g/dl (32.0-36.5); MEAN CORPUSCULAR VOLUME 89.6 fl (80.0-96.0); MONO # 0.8 10^3/uL (0.0-0.8); MONO % 12.6 % (0.0-5.0); NEUTROPHILS # 3.5 10^3/uL (1.5-8.5); NEUTROPHILS % 56.4 % (36.0-66.0); PLATELET COUNT, AUTOMATED 280 10^3/uL (150-450); RED BLOOD COUNT 4.13 10^6/uL (4.00-5.40); WHITE BLOOD COUNT 6.1 10^3/uL (4.0-10.0)
[2019-04-01 17:08] LABS: ALBUMIN 3.6 GM/DL (3.2-5.2); ALT/SGPT 28 U/L (12-78); BILIRUBIN,TOTAL 0.6 MG/DL (0.2-1.0); BLOOD UREA NITROGEN 21 MG/DL (7-18); C REACTIVE PROTEIN QUANTITATIV < 0.30 MG/DL (0.00-0.30); CALCIUM LEVEL 8.7 MG/DL (8.8-10.2); CARBON DIOXIDE LEVEL 31 MEQ/L (21-32); CHLORIDE LEVEL 110 MEQ/L (98-107); CREATININE FOR GFR 1.06 MG/DL (0.55-1.30); GLOMERULAR FILTRATION RATE 52.8 (>32); GLUCOSE, FASTING 86 MG/DL (70-100); POTASSIUM SERUM 4.3 MEQ/L (3.5-5.1); SODIUM LEVEL 143 MEQ/L (136-145); TOTAL PROTEIN 6.4 GM/DL (6.4-8.2)
[2019-04-06 00:07] LABS: DOPAMINE PLASMA <30 pg/mL (0-48); EPINEPHRINE PLASMA 72 pg/mL (0-62); NOREPINEPHRINE PLASMA 824 pg/mL (0-874)
== END ==
LOC: M LAB 15:46
PROVIDERS: ATTEND Physician Assistant Medical
DX: I10 Essential (primary) hypertension (principal)

== ENCOUNTER → 2019-04-02 | Outpatient (CLI) | payer MEDICARE, MEDICAID ==
[~2019-04-02] MED LIST changes: +GASTROGRAFIN SOLUTION 30ML (Q9963) As Ordered ONE; +ISOVUE-370 76% 100ML VIAL (Q9967) As Ordered ONE
--- NOTE | 2019-04-02 20:09 | REP ---
Clinical: Breast cancer for restaging. Technique: Axial contrast enhanced images from the lung bases to the pubic symphysis using oral (per protocol) and 100 ml Isovue 370 intravenous contrast material with delayed images of the abdomen as well as coronal and sagittal re-formations. Comparison: 12/09/2018. Findings: Lung bases demonstrate metastatic foci in the right lower lobe and right middle lobe which appear increased in size measuring up to 21 mm. No focal hepatic lesions are identified. Pneumobilia and prior cholecystectomy again noted. Spleen, bilateral adrenal glands, and kidneys are essentially normal. Atrophic pancreas remains stable. The enteric system is without obstruction or acute inflammatory process. Scattered sigmoid diverticula noted along with mild/moderate fecal stasis. Pelvis demonstrates normal bladder and age-appropriate uterus/adnexa. No ascites. No intraperitoneal or retroperitoneal adenopathy. Abdominal aortic aneurysm measuring approximately 3.7 cm maximal diameter remains unchanged. Osseous structures demonstrate degenerative changes without discrete focal abnormality identified. Impression: 1. Suggestions for increased right lower lobe and right middle lobe metastatic disease. 2. Stable abdominal aortic aneurysm. 3. Further chronic nonacute findings as described above. 4. No evidence for abdominopelvic metastatic disease. No ascites. Electronically Signed by Abdirashid Galvan MD 04/02/2019 08:00 P
== END ==
LOC: M RAD 12:08
PROVIDERS: ATTEND Internal Medicine Hematology & Oncology
DX: C50.411 Malignant neoplasm of upper-outer quadrant of right female breast (principal); I71.4 Abdominal aortic aneurysm, without rupture; R91.8 Other nonspecific abnormal finding of lung field; K57.90 Diverticulosis of intestine, part unspecified, without perforation or abscess without bleeding
CPT/HCPCS: 74177; Q9963; Q9967

== ENCOUNTER → 2019-04-11 | Outpatient (CLI) | payer MEDICARE, MEDICAID ==
[~2019-04-11] MED LIST changes: -GASTROGRAFIN SOLUTION 30ML (Q9963) As Ordered ONE
--- NOTE | 2019-04-12 08:22 | REP ---
Clinical: Lung metastases. Restaging. Technique: Axial contrast enhanced images from the thoracic inlet to the upper abdomen with coronal and sagittal re-formations. Comparison: 02/04/2019. Findings: Metastatic lesions have increased in size when compared to prior examination. As example, anterior right upper lobe lesion currently measures 11 mm and previously measured 7.4 mm (image 32); right lower lobe lesion currently measures 19.2 mm and previously measured 13.4 mm (image 53). Underlying chronic interstitial changes noted. No focal consolidation. No effusion. No pneumothorax. Mediastinal and right hilar lymph nodes measure up to approximately 10.6 mm. Atherosclerotic changes to the thoracic aorta and coronary arteries noted without aneurysm or dissection. No cardiomegaly or pericardial effusion. Tracheobronchial tree is patent. Surrounding musculoskeletal structures are intact without focal osseous abnormality. Limited upper abdomen demonstrates normal bilateral adrenal glands along with continued evidence for pneumobilia. Impression: 1. Metastatic lesions throughout the bilateral lung fitzgerald increased in size from prior examination. Electronically Signed by Abdirashid Galvan MD 04/12/2019 08:13 A
== END ==
LOC: M RAD 16:21
PROVIDERS: ATTEND Internal Medicine Hematology & Oncology
DX: C78.00 Secondary malignant neoplasm of unspecified lung (principal); C50.411 Malignant neoplasm of upper-outer quadrant of right female breast
CPT/HCPCS: 71260; Q9967

== ENCOUNTER → 2019-05-02 | Outpatient (CLI) | payer MEDICARE, MEDICAID ==
[~2019-05-02] MED LIST changes: +ASPI81CH33 PO; +CALC600T5 PO; +CARV12.5 PO; -ISOVUE-370 76% 100ML VIAL (Q9967) As Ordered ONE; +LIDOCAINE 1% MDV 20ML VIAL As Ordered ONE; +PANT-23 PO
--- NOTE | 2019-05-02 10:53 | REP ---
CHEST, SINGLE VIEW: Single view of the chest is performed status post attempted right lung biopsy. There is very small right pneumothorax. Right lung nodules are again noted. The heart is normal in size. Left central venous catheter is seen. Electronically Signed by Leonard Burdick MD 05/02/2019 11:46 A
[2019-05-02 12:20] VITALS: BP 136/74
--- NOTE | 2019-05-02 12:27 | REP ---
CHEST, SINGLE VIEW: Single view of the chest is performed. Comparison made with a prior exam earlier today. There is again a small right apical pneumothorax status post attempted right lung biopsy. No other acute changes are seen. Electronically Signed by Leonard Burdick MD 05/02/2019 01:03 P
--- NOTE | 2019-05-03 16:57 | REP ---
CT-guided right lower lobe lung biopsy The procedure is performed by JL Hilario, under the direct supervision of Dr. Burdick. The patient has a history of a metastatic lesions throughout the bilateral lung fitzgerald increasing in size on a CT dated 04/11/2019. The risks and benefits of the procedure were explained to the patient and informed consent was obtained both orally and written. Directly prior to the start of the procedure, a formal timeout was done in the exam room. The right lower lobe lung nodule was localized using CT guidance. Skin was prepped and draped in the usual sterile fashion. 2 ml of 1% lidocaine was used as a local anesthetic. Using CT guidance a 19/20 gauge coaxial needle biopsy system was inserted and advanced slightly above the nodule. While repositioning the needle and a small pneumothorax was visualized on the CT scan. The procedure was then aborted. After the appropriate amount of monitored convalescence and serial chest x-rays a small pneumothorax was still present. The patient was discharged from the department with the instructions that if she should have any difficulty breathing or changes in breathing status to immediately report to the ER. Reviewed by JL Osborne 05/02/2019 05:04 P Electronically Signed by Leonard Burdick MD 05/03/2019 04:49 P
== END ==
LOC: M IRPRO 08:32
DX: C34.31 Malignant neoplasm of lower lobe, right bronchus or lung (principal); J93.9 Pneumothorax, unspecified

== ENCOUNTER → 2019-05-24 | Outpatient (CLI) | payer MEDICARE, MEDICAID ==
[~2019-05-24] MED LIST changes: +OMEP-172 PO; -OMEP20CA4 PO
[2019-05-24 12:30] VITALS: BP 161/76
--- NOTE | 2019-05-24 15:07 | REP ---
CHEST, SINGLE VIEW: Single view of the chest is performed status post right lung biopsy. There is no pneumothorax. Right lower lobe nodules are again seen with mild added arti-nodular hemorrhage from the CT-guided biopsy. The remainder of the study is unchanged. Electronically Signed by Leonard Burdick MD 05/27/2019 04:12 P
--- NOTE | 2019-05-24 17:21 | REP ---
CT-guided right lower lobe lung biopsy The procedure is performed by JL Hilario, under the direct supervision of Dr. Burdick. The risks and benefits of the procedure were explained to the patient and informed consent was obtained both orally and written. Directly prior to the start of the procedure, a formal timeout was done in the exam room. One of multiple right lower lobe lung nodules was localized using CT guidance. Skin was prepped and draped in the usual sterile fashion. 2 ml of 1% lidocaine was used as a local anesthetic. Using CT guidance a 19/20 gauge coaxial needle biopsy system was inserted and advanced into the nodule. 2 core biopsy samples were obtained and sent to the lab. After the second biopsy the patient experienced a couple of episodes of hemoptysis, with a drop in her oxygen saturation. The procedure was stopped and the patient was put on oxygen via nasal cannula. CT images obtained directly after the biopsy show no evidence of pneumothorax. After the appropriate amount of monitored convalescence the patient was discharged from the department. Reviewed by JL Osborne 05/24/2019 04:13 P Electronically Signed by Leonard Burdick MD 05/24/2019 05:10 P
== END ==
LOC: M IRPRO 08:03
PROVIDERS: ATTEND Internal Medicine Hematology & Oncology
DX: C34.31 Malignant neoplasm of lower lobe, right bronchus or lung (principal)

== ENCOUNTER 2019-05-28 17:19 | Emergency (ER) | payer MEDICARE, MEDICAID ==
[~2019-05-28] VITALS: Ht 157.5 cm; Wt 49.1 kg
[~2019-05-28 17:19] MED LIST changes: -LIDOCAINE 1% MDV 20ML VIAL As Ordered ONE
[2019-05-28 17:20] VITALS: BP 189/97
--- NOTE | 2019-05-28 18:01 | REPVR ---
PROCEDURE INFORMATION: Exam: CT Head Without Contrast Exam date and time: 05/28/2019 5:37 PM Age: 83 years old Clinical indication: Injury or trauma; Fall; Initial encounter; Blunt trauma (contusions or hematomas); Additional info: Posterior head injury; Staple placed by TECHNIQUE: Imaging protocol: Computed tomography of the head without contrast. Radiation optimization: All CT scans at this facility use at least one of these dose optimization techniques: automated exposure control; mA and/or kV adjustment per patient size (includes targeted exams where dose is matched to clinical indication); or iterative reconstruction. COMPARISON: CT Head without contrast 02/26/2019 12:27 PM FINDINGS: Brain: There is minimal patchy low attenuation of deep white matter. There is a small old lacunar infarct in the anterior right caudate nucleus. Ventricles: There is slight prominence of the central ventricular system. Bones/joints: Unremarkable. No acute fracture. Sinuses: Visualized sinuses are unremarkable. No fluid levels. Mastoid air cells: Visualized mastoid air cells are well aerated. Soft tissues: Unremarkable. IMPRESSION: 1. There has been no change since 02/26/2019. No acute interval intracranial process is identified. 2. Minimal atrophy and minimal chronic ischemic white matter change with small old lacunar infarct of the right caudate nucleus. Electronically signed by: Ciaran Thompson On 05/28/2019 18:01:23 PM
--- NOTE | 2019-05-28 18:04 | REP ---
Single view pelvis: 05/28/2019. Indication: Pain following injury. Comparison: None. Findings: There is no evidence of fracture, subluxation or dislocation. Joint space narrowing of the hips is present bilaterally. Sclerotic changes of the acetabulum are present. Impression: No acute osseous injury of the pelvis. Electronically Signed by Misael Quiles DO 05/28/2019 05:55 P
--- NOTE | 2019-05-28 18:07 | REPVR ---
PROCEDURE INFORMATION: Exam: CT Cervical Spine Without Contrast Exam date and time: 05/28/2019 5:37 PM Age: 83 years old Clinical indication: Injury or trauma; Fall; Initial encounter; Blunt trauma; Additional info: Posterior head injury; Distracting injury TECHNIQUE: Imaging protocol: Computed tomography images of the cervical spine without contrast. Radiation optimization: All CT scans at this facility use at least one of these dose optimization techniques: automated exposure control; mA and/or kV adjustment per patient size (includes targeted exams where dose is matched to clinical indication); or iterative reconstruction. COMPARISON: No relevant prior studies available. FINDINGS: Vertebrae: No acute fracture. Normal alignment. 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 C2-C3: Ankylosis with no spinal or foraminal stenosis. C3-C4: Ankylosis with no spinal or foraminal stenosis. C4-C5: Mild interspace narrowing with slight anterolisthesis and some bilateral degenerative changes with low normal right neural foramen. C5-C6: Slight interspace narrowing with slight anterior listhesis calcification of the disc with bilateral degenerative changes. There is mild right neural foraminal stenosis. C6-C7: Moderate interspace narrowing with minimal posterior osteophytes and no spinal or foraminal stenosis. C7-T1: Early degenerative changes of apophyseal joints and anterior spurring with no spinal or foraminal stenosis. Soft tissues: Unremarkable. Lungs: Lung apices are normal. IMPRESSION: 1. 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 2. Degenerative disc and bony changes in the lower cervical spine mild right neural foraminal stenosis at C5-C6. 3. Otherwise negative CT cervical spine. No acute fracture or subluxation. Electronically signed by: Ciaran Thompson On 05/28/2019 18:07:23 PM
== END 2019-05-28 18:35 | disposition home or self-care (01) ==
LOC: M ED 17:19
DX: S09.90XA Unspecified injury of head, initial encounter (principal); S30.0XXA Contusion of lower back and pelvis, initial encounter; W00.0XXA Fall on same level due to ice and snow, initial encounter; Y92.018 Other place in single-family (private) house as the place of occurrence of the external cause; I10 Essential (primary) hypertension; M79.7 Fibromyalgia; Z79.899 Other long term (current) drug therapy; Z79.82 Long term (current) use of aspirin; Z88.1 Allergy status to other antibiotic agents; Z91.040 Latex allergy status

== ENCOUNTER 2019-06-07 12:15 | Emergency (ER) | payer MEDICARE, MEDICAID ==
[~2019-06-07] VITALS: Ht 157.5 cm; Wt 49.3 kg
--- NOTE | 2019-06-07 13:47 | REP ---
Clinical: Trauma. Technique: Three views of the sacrum and coccyx. Findings: Sacroiliac joints are symmetric and normal. No obvious acute fracture identified. Impression: No acute fracture. Electronically Signed by Abdirashid Galvan MD 06/07/2019 01:38 P
[2019-06-07 13:54] VITALS: BP 153/78
== END 2019-06-07 13:55 | disposition home or self-care (01) ==
LOC: M ED 12:15
DX: S76.011A Strain of muscle, fascia and tendon of right hip, initial encounter (principal); W00.0XXA Fall on same level due to ice and snow, initial encounter; Y92.018 Other place in single-family (private) house as the place of occurrence of the external cause; I10 Essential (primary) hypertension; E78.5 Hyperlipidemia, unspecified; M79.7 Fibromyalgia; Z79.899 Other long term (current) drug therapy; Z79.82 Long term (current) use of aspirin; Z88.1 Allergy status to other antibiotic agents

== ENCOUNTER → 2019-06-17 | Outpatient (CLI) | payer MEDICARE, MEDICAID ==
--- NOTE | 2019-06-17 21:42 | REP ---
Clinical: Restaging breast cancer. Technique: Axial noncontrast images from the thoracic inlet to the upper abdomen with coronal and sagittal re-formations. Comparison: 04/11/2019. Findings: Bilateral lung fitzgerald demonstrate scattered metastatic foci which have increased in size in comparison to the prior examination with few small new nodules also identified. No further consolidation, effusion, or pneumothorax. Mediastinal lymph nodes remain stable. Atherosclerotic changes to the thoracic aorta and coronary arteries noted along with cardiomegaly. No pericardial effusion. [id number] identified with tip in the SVC. Skeletal structures appear for intact without obvious focal abnormality. Impression: Bilateral metastatic lesions increased from prior examination. Electronically Signed by Abdirashid Galvan MD 06/17/2019 09:33 P
== END ==
LOC: M RAD 13:04
PROVIDERS: ATTEND Internal Medicine Hematology
DX: C50.811 Malignant neoplasm of overlapping sites of right female breast (principal); Z97.8 Presence of other specified devices

== ENCOUNTER → 2019-06-26 | Outpatient (CLI) | payer MEDICARE, MEDICAID ==
[~2019-06-26] MED LIST changes: +CELE100C PO; +HYDR-3713 PO; -OMEP-172 PO; +OMEP1CAP73 PO; +TIZA2CAP PO; +VITA100054 PO
--- NOTE | 2019-06-26 11:42 | REPPI ---
INDICATION: Fall PROCEDURE: Plain film study of the thoracic spine COMPARISON STUDIES: No prior similar studies FINDINGS: No definite fracture or malalignment although study somewhat limited by overlying structures. Central line appears to enter from the left. Visualized lungs are clear. Degenerative changes are seen with flowing osteophytes on the right. CONCLUSION: No definite acute findings. If clinical concern persist or warrants, CT scan recommended. Electronically Signed by Kan Jama MD 06/26/2019 11:34 A
== END ==
LOC: M PLALAB 11:06
PROVIDERS: ATTEND Physician Assistant Medical
DX: I11.9 Hypertensive heart disease without heart failure (principal); W19.XXXS Unspecified fall, sequela
CPT/HCPCS: 72072; G0463

== ENCOUNTER → 2019-07-04 | Outpatient (CLI) | payer MEDICARE, MEDICAID ==
[~2019-07-04] MED LIST changes: -HYDR-3713 PO; -TIZA2CAP PO; -VITA100054 PO
--- NOTE | 2019-07-04 09:23 | REP ---
Abdominal aorta ultrasound for follow up of aortic aneurysm : Comparison is 11/02/2018. Abdominal Aortic Measurements are as follows: Proximal 2.3 cm AP 2.3 cm TRV Renal Artery Level 1.8 a cm AP 2.5 cm TRV Mid Aorta 4.0 cm AP 2.6 cm TRV Distal Aorta 2.9 cm AP 3.0 cm TRV R Iliac Artery 0.9 cm AP 1.1 cm TRV L Iliac Artery 0.9 cm AP 1.1. The cm TRV Impression : The there is an abdominal aortic aneurysm involving the mid and distal infrarenal aorta measuring 4.0 cm AP by 3.0 cm centimeters transversely by 7.1 cm craniocaudad length. This is essentially unchanged from the prior study. Electronically Signed by Leonard Colunga MD 07/04/2019 09:14 A
== END ==
LOC: M RAD 08:35
PROVIDERS: ATTEND Physician Assistant Medical
DX: I71.4 Abdominal aortic aneurysm, without rupture (principal); N18.3 Chronic kidney disease, stage 3 (moderate)

== ENCOUNTER 2019-09-19 11:09 | Emergency (ER) | payer MEDICAID, MEDICARE ==
[~2019-09-19] VITALS: Ht 157.5 cm; Wt 47.3 kg
[~2019-09-19 11:09] MED LIST changes: +HYDR-3713 PO; +TIZA2CAP PO; +VITA100054 PO; +VITAD1000T PO
[2019-09-19] MEDS ORDERED: MELO7.5T35 (11:32)
[2019-09-19] MEDS ORDERED: TIZA2TA PO (11:32)
[2019-09-19] MEDS ORDERED: MULTCAP PO (11:32)
[2019-09-19 12:19] LABS: HEMATOCRIT 28.4 % (36.0-47.0); HEMOGLOBIN 8.9 g/dl (12.0-15.5); MEAN CORPUSCULAR HEMOGLOBIN 25.3 pg (27.0-33.0); MEAN CORPUSCULAR HGB CONC 31.3 g/dl (32.0-36.5); MEAN CORPUSCULAR VOLUME 80.7 fl (80.0-96.0); PLATELET COUNT, AUTOMATED 401 10^3/uL (150-450); RED BLOOD COUNT 3.52 10^6/uL (4.00-5.40); WHITE BLOOD COUNT 13.3 10^3/uL (4.0-10.0)
[2019-09-19] MEDS ORDERED: ISOVUE-370 76% 100ML VIAL (Q9967) As Ordered ONE (12:27)
[2019-09-19 12:47] LABS: ALBUMIN 2.5 GM/DL (3.2-5.2); BILIRUBIN,DIRECT 0.8 MG/DL (0.0-0.2); BILIRUBIN,TOTAL 2.1 MG/DL (0.2-1.0); TOTAL PROTEIN 5.9 GM/DL (6.4-8.2)
[2019-09-19 12:56] LABS: LYMPHOCYTES 1 % (16-44); NEUTROPHILS 97 % (28-66); PLATELET ESTIMATE NORMAL (NORMAL)
[2019-09-19 15:30] VITALS: BP 98/51
--- NOTE | 2019-09-19 15:30 | REP ---
CT ANGIOGRAM ABDOMEN AND PELVIS: CT angiogram abdomen and pelvis performed following the intravenous administration of 100 mL of Isovue 370. Sagittal and coronal reconstruction images are performed as well as MIP reconstruction images. Comparison is made with prior CT chest 06/17/[address] abdomen and pelvis 04/02/2019. In the visualized lung bases there are multiple nodules in the visualized right lower lung zone, which all have mildly increased in size since the prior CT of the chest 06/17/2019. Two nodules in the visualized left lower lobe has also mildly increased in size. There is new mild right pleural effusion. The liver demonstrates no mass. There is heterogeneous enhancement which is nonspecific. There are tiny calcified granulomas in the spleen, which is not enlarged. The adrenal glands demonstrate no nodule. There are post surgical changes in the right upper quadrant. There is pancreatic duct dilatation which is stable. Multiple metallic clips in the right upper quadrant status post Whipple procedure. Prominent left renal pelvis is stable. Lobular aneurysm of the distal abdominal aorta is unchanged in size and appearance. At the maximum diameter, the AP dimension is 2.9 cm and transverse 3.5 cm. There is no rupture or dissection. Common iliac arteries are normal in caliber with atherosclerotic calcification. No periaortic adenopathy is seen. No free air is seen. No definite bowel wall thickening is seen. Moderate fecal material is seen in the left rectosigmoid colon. There is mild nonspecific free fluid in the pelvis. Urinary bladder is mild to moderately distended and grossly unremarkable. There are diffuse degenerative changes of the spine. IMPRESSION: Multiple lung nodules seen in the visualized lung bases have mildly increased in size since the prior CT of the chest 06/17/2019. There is a new small right pleural effusion. Distal abdominal aortic aneurysm is unchanged in size and appearance with no dissection or rupture. Postsurgical changes are again seen in the right upper quadrant, status post Whipple procedure. Moderate fecal material in the left and rectosigmoid colon. No definite bowel thickening. Very mild free fluid in the pelvis is nonspecific. Electronically Signed by Leonard Burdick MD 09/20/2019 09:28 A
[2019-09-20] MEDS ORDERED: HYDR-3713 PO (10:03)
[2019-09-20] MEDS ORDERED: VITMTA PO (10:03)
--- NOTE | 2019-09-22 09:31 | ED PDOC ---
Post-Departure Follow-Up william ingram faxed formal reportof cta abd/p for Gena Santana MD Sep 22, 2019 09:31
== END 2019-09-19 15:34 | disposition home or self-care (01) ==
LOC: EDBD 11:09 → M ED 11:09
DX: J90 Pleural effusion, not elsewhere classified (principal); D72.829 Elevated white blood cell count, unspecified; C78.89 Secondary malignant neoplasm of other digestive organs; I71.4 Abdominal aortic aneurysm, without rupture; D64.9 Anemia, unspecified; Z79.899 Other long term (current) drug therapy; Z79.82 Long term (current) use of aspirin; Z88.1 Allergy status to other antibiotic agents; Z91.040 Latex allergy status
CPT/HCPCS: 36415; 74174; 80047; 80076; 83690; 85025; 86850; 86900; 86901; 87040; 87077; 87186; 93041; 94760; 99285; Q9967

== ENCOUNTER 2019-09-20 08:41 | Inpatient (IN) | payer MEDICARE ==
[~2019-09-20] VITALS: Ht 157.5 cm; Wt 45.3 kg
[~2019-09-20 08:41] MED LIST changes: +MELO7.5T35; +MULTCAP PO; +TIZA2TA PO
[2019-09-20 09:30] VITALS: BP 103/52
[2019-09-20] MEDS ORDERED: HYDR-3713 PO (10:03)
[2019-09-20] MEDS ORDERED: VITMTA PO (10:03)
[2019-09-20] MEDS ORDERED: NORCO, ANEXSIA 5/325MG TABLET (HYDROcodone/ACETAMINOPHEN) PO PRN (11:15)
--- NOTE | 2019-09-20 11:55 | HPEPDOC ---
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 Patient presented to the emergency department yesterday with fever, workup was completed and she was discharged home, blood cultures from emergency department grew gram-negative bacilli and she was called and adv ised to return to the hospital. Patient is a poor historian and doesn't remember coming to the emergency department yesterday, has no complaints at this time. Patient denies any shortness of breath, chest pain, nausea, vomiting, abdominal pain, diarrhea, dysuria or change in urinary frequency. Patient received chemotherapy last week. 10 point review of system is negative except for above PAST MEDICAL HISTORY: 1. 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 2. Hypertension. PAST SURGICAL HISTORY: 1. Whipple's procedure. SOCIAL HISTORY: Positive for heart disease ALLERGIES: Please see below. HOME MEDICATIONS: Please see below. PHYSICAL EXAMINATION: VITAL SIGNS: Please see below. GENERAL: No distress HEENT: Normocephalic, atraumatic, moist mucous membranes NECK: Supple CARDIOVASCULAR EXAMINATION: S1, S2, no murmurs RESPIRATORY EXAMINATION: Clear to auscultation, no wheezing ABDOMINAL EXAMINATION: Soft, nontender, nondistended, positive bowel sounds EXTREMITIES: Range of motion intact SKIN: No rash NEUROLOGICAL EXAMINATION: no focal deficits PSYCHIATRIC EXAMINATION: Calm and cooperative LABORATORY DATA: See below. MICROBIOLOGY: Please see below. ASSESSMENT: 84-year-old female with past medical history of metastatic adenocarcinoma of Vater on chemotherapy is being admitted for gram-negative bacteremia. PLAN: 1. Bacteremia. Preliminary blood cultures from yesterday's ED visit are growing gram-negative organisms, empiric cefepime, blood cultures repeated. Source is unknown, UA ordered. 2. Metastatic adenocarcinoma of Vater. Status post Whipple's procedure, currently receiving Abraxane and gemcitabine. 3. Hypertension. Continue Coreg DVT prophylaxis: Lovenox. GI prophylaxis: Home PPI Vital Signs Vital Signs Date Time Temp Pulse Resp B/P (MAP) Pulse Ox O2 Delivery O2 Flow Rate FiO2 4/10/20 09:30 98.2 70 17 103/52 (69) 98 Room Air Laboratory Data Microbiology Microbiology 09/20/19 Blood Culture, Received Pending Home Medications Scheduled Aspirin (Aspirin) 81 Mg Tab.chew, 81 MG PO DAILY Calcium Carbonate (Calcium) 600 Mg Tablet, 600 MG PO DAILY Carvedilol (Carvedilol) 12.5 Mg Tablet, 12.5 MG PO BID Multivitamins (Thera M Plus Tablet) 1 Each Tablet, 1 TAB PO DAILY Pantoprazole Sodium (Pantoprazole Sodium) 40 Mg Tablet.dr, 40 MG PO BID Scheduled PRN Hydrocodone/Acetaminophen (Hydrocodone-Acetamin 5-325 mg) 1 Each Tablet, 1 TAB PO Q8H PRN for PAIN Tizanidine HCl (Tizanidine HCl) 2 Mg Tablet, 2 MG PO TID PRN for MUSCLE SPASMS Allergies Coded Allergies: latex (Verified Allergy, Mild, itching, 09/11/18) tetracycline (Verified Adverse Reaction, Intermediate, mouth sores, 09/11/18) A-FIB/CHADSVASC A-FIB History Current/History of A-Fib/PAF?: No ANG GUZMAN MD Sep 20, 2019 11:55
[2019-09-20] MEDS ORDERED: CEFEPIME HCL 2 GM in D5W MINI-BAG PLUS 50 ML IV SCH (12:00)
[2019-09-20 13:33] VITALS: BP 98/57
[2019-09-20 13:35] VITALS: BP 102/62
[2019-09-20] MEDS ORDERED: ACETAMINOPHEN TAB 650MG DOSE (2X325MG) PO PRN (14:00)
[2019-09-20] MEDS: PANTOPRAZOLE 40MG TAB (PROTONIX) PO SCH (20:19)
[2019-09-20] MEDS: CEFEPIME HCL 2 GM in D5W MINI-BAG PLUS 50 ML IV SCH (20:19)
[2019-09-20] MEDS ORDERED: RAMELTEON 8 MG TAB (ROZEREM) PO PRN (20:30)
[2019-09-20] MEDS: CARVedilol 12.5 MG TAB PO SCH (20:32)
[2019-09-20 22:00] VITALS: BP 108/59
[2019-09-21 05:48] LABS: HEMOGLOBIN 7.7 g/dl (12.0-15.5); MEAN CORPUSCULAR HEMOGLOBIN 24.8 pg (27.0-33.0); MEAN CORPUSCULAR HGB CONC 29.6 g/dl (32.0-36.5); MEAN CORPUSCULAR VOLUME 83.6 fl (80.0-96.0); PLATELET COUNT, AUTOMATED 338 10^3/uL (150-450); RED BLOOD COUNT 3.11 10^6/uL (4.00-5.40); WHITE BLOOD COUNT 4.3 10^3/uL (4.0-10.0)
[2019-09-21 06:00] VITALS: BP 119/66
[2019-09-21 06:27] LABS: ALBUMIN 2.4 GM/DL (3.2-5.2); ALT/SGPT 28 U/L (12-78); BILIRUBIN,TOTAL 0.5 MG/DL (0.2-1.0); BLOOD UREA NITROGEN 31 MG/DL (7-18); CALCIUM LEVEL 8.8 MG/DL (8.8-10.2); CARBON DIOXIDE LEVEL 30 MEQ/L (21-32); CHLORIDE LEVEL 104 MEQ/L (98-107); CREATININE FOR GFR 0.89 MG/DL (0.55-1.30); GLOMERULAR FILTRATION RATE > 60.0 (>32); GLUCOSE, FASTING 117 MG/DL (70-100); MAGNESIUM LEVEL 2.2 MG/DL (1.8-2.4); POTASSIUM SERUM 4.4 MEQ/L (3.5-5.1); SODIUM LEVEL 137 MEQ/L (136-145); TOTAL PROTEIN 6.1 GM/DL (6.4-8.2)
[2019-09-21] MEDS: PANTOPRAZOLE 40MG TAB (PROTONIX) PO SCH ×2 (08:23→20:24)
[2019-09-21] MEDS: ASPIRIN 81 MG CHEW TABLET PO SCH (08:23)
[2019-09-21] MEDS: CEFEPIME HCL 2 GM in D5W MINI-BAG PLUS 50 ML IV SCH (08:23)
[2019-09-21] MEDS: MULTIVITAMINS/MINERALS THERAP 1 TAB PO SCH (08:23)
[2019-09-21] MEDS: CARVedilol 12.5 MG TAB PO SCH ×2 (08:29→20:25)
[2019-09-21 08:55] LABS: FERRITIN 429 NG/ML (8-252); IRON (FE) 15 UG/DL (50-170); TOTAL IRON BINDING CAPACITY 214 UG/DL (250-450)
[2019-09-21] MEDS ORDERED: ENOXAPARIN 40 MG/0.4 ML SYRINGE (J1650) SC SCH (09:00)
[2019-09-21] MEDS: FERROUS SULFATE 325MG TAB PO SCH ×2 (10:18→20:24)
[2019-09-21 13:31] LABS: HEMATOCRIT 28.3 % (36.0-47.0); HEMOGLOBIN 8.5 g/dl (12.0-15.5); MEAN CORPUSCULAR HEMOGLOBIN 24.9 pg (27.0-33.0); PLATELET COUNT, AUTOMATED 379 10^3/uL (150-450); RED BLOOD COUNT 3.41 10^6/uL (4.00-5.40); WHITE BLOOD COUNT 4.4 10^3/uL (4.0-10.0)
[2019-09-21 14:00] VITALS: BP 95/51
[2019-09-21 14:12] VITALS: BP 105/52
--- NOTE | 2019-09-21 14:53 | IPNPDOC ---
Date Seen The patient was seen on 09/21/19. 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 She feels well in the morning, without any complaints, wishes to go home. She denies any shortness of breath, chest pain, nausea, vomiting, no apparent diarrhea. 10 point review of system is negative except for above PHYSICAL EXAMINATION: VITAL SIGNS: Please see below. GENERAL: No distress HEENT: Normocephalic, atraumatic, moist mucous membranes NECK: Supple CARDIOVASCULAR EXAMINATION: S1, S2, no murmurs RESPIRATORY EXAMINATION: Clear to auscultation, no wheezing ABDOMINAL EXAMINATION: Soft, nontender, nondistended, positive bowel sounds EXTREMITIES: Range of motion intact SKIN: No rash NEUROLOGICAL EXAMINATION: no focal deficits PSYCHIATRIC EXAMINATION: Calm and cooperative LABORATORY DATA: See below. MICROBIOLOGY: Please see below. ASSESSMENT: 84-year-old female with past medical history of metastatic adenocarcinoma of Vater on chemotherapy is being admitted for gram-negative bacteremia. PLAN: 1. Bacteremia. Preliminary blood cultures are growing gram-negative rods, empiric cefepime, blood cultures repeated. Source is unknown, pro-calcitonin is severely elevated, will repeat tomorrow morning to titrate the effect of antibiotics. 2. Metastatic adenocarcinoma of Vater. Status post Whipple's procedure, currently receiving Abraxane and gemcitabine. 3. Hypertension. Continue Coreg 4. Anemia. Studies consistent with anemia of chronic disease, current hemoglobin appears to have acutely dropped from baseline, will repeat in the afternoon, stool OB ordered. Lovenox held DVT prophylaxis: SCDs GI prophylaxis: Home PPI VS, I&O, 24H, Fishbone Vital Signs/I&O Vital Signs Date Time Temp Pulse Resp B/P (MAP) Pulse Ox O2 Delivery O2 Flow Rate FiO2 09/21/19 14:12 71 105/52 (69) 09/21/19 06:00 98.1 17 97 Room Air I&O- Last 24 Hours up to 6 AM 09/21/19 06:00 Intake Total 1720 ml Output Total 335 ml Balance 1385 ml Laboratory Data 24H LABS Laboratory Tests 2 09/20/19 18:07: Urine Color YELLOW, Urine Appearance HAZY, Urine pH 5.0, Urine Specific [place] 1.031, Urine Protein NEGATIVE, Urine Glucose (UA) NEGATIVE, Urine Ketones NEGATIVE, Urine Blood NEGATIVE, Urine Nitrite NEGATIVE, Urine Bilirubin NEGATIVE, Urine Urobilinogen 0.2, Urine Leukocyte Esterase NEGATIVE, Urine WBC (Auto) 8H, Urine RBC (Auto) 2, Urine Hyaline Casts (Auto) 1, Urine Bacteria (Auto) 1+H, Urine Squamous Epithelial Cells 1, Urine Mucus (Auto) SMALL, Urine Sperm (Auto) 09/21/19 05:29: Nucleated Red Blood Cells % (auto) 0.0, Anion Gap 3L, Glomerular Filtration Rate > 60.0, Calcium Level 8.8, Magnesium Level 2.2, Iron Level 15L, Total Iron Binding Capacity 214L, Transferrin % Saturation 7.0L, Ferritin 429H, Total Bilirubin 0.5#, Aspartate Amino Transf (AST/SGOT) 28, Alanine Aminotransferase (ALT/SGPT) 28, Alkaline Phosphatase 220H, Total Protein 6.1L, Albumin 2.4L, Albumin/Globulin Ratio 0.65L 09/21/19 13:18: Nucleated Red Blood Cells % (auto) 0.0 CBC/BMP Laboratory Tests 09/21/19 05:29 09/21/19 13:18 Microbiology Microbiology 09/20/19 Blood Culture - Preliminary, Resulted No growth after 24 hours . All specim... 09/20/19 Blood Culture - Preliminary, Resulted No growth after 24 hours . All specim... ANG GUZMAN MD Sep 21, 2019 14:53
[2019-09-21] MEDS ORDERED: LevoFLOXacin IV 750 MG in IV 1 EA IV SCH (17:00)
[2019-09-21 22:00] VITALS: BP 150/77
[2019-09-22 06:00] VITALS: BP 143/81
[2019-09-22 06:08] LABS: HEMATOCRIT 25.9 % (36.0-47.0); HEMOGLOBIN 8.2 g/dl (12.0-15.5); MEAN CORPUSCULAR HEMOGLOBIN 26.1 pg (27.0-33.0); MEAN CORPUSCULAR HGB CONC 31.7 g/dl (32.0-36.5); MEAN CORPUSCULAR VOLUME 82.5 fl (80.0-96.0); PLATELET COUNT, AUTOMATED 324 10^3/uL (150-450); RED BLOOD COUNT 3.14 10^6/uL (4.00-5.40); WHITE BLOOD COUNT 2.2 10^3/uL (4.0-10.0)
[2019-09-22 06:30] LABS: BLOOD UREA NITROGEN 20 MG/DL (7-18); CALCIUM LEVEL 8.5 MG/DL (8.8-10.2); CARBON DIOXIDE LEVEL 27 MEQ/L (21-32); CHLORIDE LEVEL 104 MEQ/L (98-107); CREATININE FOR GFR 0.81 MG/DL (0.55-1.30); GLOMERULAR FILTRATION RATE > 60.0 (>32); GLUCOSE, FASTING 108 MG/DL (70-100); POTASSIUM SERUM 4.3 MEQ/L (3.5-5.1); SODIUM LEVEL 136 MEQ/L (136-145)
[2019-09-22] MEDS ORDERED: MIRALAX *UNIT DOSE* 17GM PACKET PO SCH (09:00)
[2019-09-22] MEDS: MIRALAX *UNIT DOSE* 17GM PACKET PO PRN ×2 (09:46→20:11)
[2019-09-22] MEDS: ASPIRIN 81 MG CHEW TABLET PO SCH (09:47)
[2019-09-22] MEDS: PANTOPRAZOLE 40MG TAB (PROTONIX) PO SCH ×2 (09:47→20:12)
[2019-09-22] MEDS: MULTIVITAMINS/MINERALS THERAP 1 TAB PO SCH (09:47)
[2019-09-22] MEDS: FERROUS SULFATE 325MG TAB PO SCH ×2 (09:47→20:12)
[2019-09-22] MEDS: CARVedilol 12.5 MG TAB PO SCH ×2 (09:51→20:12)
[2019-09-22 14:00] VITALS: BP 143/79
[2019-09-22 22:00] VITALS: BP 141/79
--- NOTE | 2019-09-22 22:19 | IPNPDOC ---
Date Seen The patient was seen on 09/22/19. 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 Coli bacteremia. She feels well in the morning, without any complaints, wishes to go home. She denies any shortness of breath, chest pain, nausea, vomiting, no apparent diarrhea. 10 point review of system is negative except for above PHYSICAL EXAMINATION: VITAL SIGNS: Please see below. GENERAL: No distress HEENT: Normocephalic, atraumatic, moist mucous membranes NECK: Supple CARDIOVASCULAR EXAMINATION: S1, S2, no murmurs RESPIRATORY EXAMINATION: Clear to auscultation, no wheezing ABDOMINAL EXAMINATION: Soft, nontender, nondistended, positive bowel sounds EXTREMITIES: Range of motion intact SKIN: No rash NEUROLOGICAL EXAMINATION: no focal deficits PSYCHIATRIC EXAMINATION: Calm and cooperative LABORATORY DATA: See below. MICROBIOLOGY: Please see below. ASSESSMENT: 84-year-old female with past medical history of metastatic adenocarcinoma of Vater on chemotherapy is being admitted for gram-negative bacteremia. PLAN: 1. Bacteremia. Cultures grew pansensitive E. Coli, continue Levaquin, repeat cultures negative, Procal downtrending, plan for d/c tomorrow. 2. Metastatic adenocarcinoma of Vater. Status post Whipple's procedure, currently receiving Abraxane and gemcitabine. 3. Hypertension. Continue Coreg 4. Anemia. Studies consistent with anemia of chronic disease, H/H stable. DVT prophylaxis: Heparin SubQ GI prophylaxis: Home PPI VS, I&O, 24H, Fishbone Vital Signs/I&O Vital Signs Date Time Temp Pulse Resp B/P (MAP) Pulse Ox O2 Delivery O2 Flow Rate FiO2 09/22/19 20:12 78 141/79 09/22/19 14:00 98.6 16 97 Room Air I&O- Last 24 Hours up to 6 AM 09/22/19 06:00 Intake Total 770 ml Output Total 700 ml Balance 70 ml Laboratory Data 24H LABS Laboratory Tests 2 09/22/19 05:19: Nucleated Red Blood Cells % (auto) 0.0, Anion Gap 5L, Glomerular Filtration Rate > 60.0, Calcium Level 8.5L, Procalcitonin 10.06 CBC/BMP Laboratory Tests 09/22/19 05:19 Microbiology Microbiology 09/20/19 Blood Culture - Preliminary, Resulted No Growth after 48 hours. All Specime... 09/20/19 Blood Culture - Preliminary, Resulted No Growth after 48 hours. All Specime... ANG GUZMAN MD Sep 22, 2019 22:19
[2019-09-23 06:00] VITALS: BP 132/74
[2019-09-23 06:00] LABS: BLOOD UREA NITROGEN 14 MG/DL (7-18); CALCIUM LEVEL 8.6 MG/DL (8.8-10.2); CARBON DIOXIDE LEVEL 27 MEQ/L (21-32); CHLORIDE LEVEL 105 MEQ/L (98-107); CREATININE FOR GFR 0.71 MG/DL (0.55-1.30); GLOMERULAR FILTRATION RATE > 60.0 (>32); GLUCOSE, FASTING 113 MG/DL (70-100); POTASSIUM SERUM 4.5 MEQ/L (3.5-5.1); SODIUM LEVEL 139 MEQ/L (136-145)
[2019-09-23 06:15] LABS: BASO % 0.3 % (0.0-1.0); EOS # 0.1 10^3/uL (0.0-0.5); EOS % 3.9 % (0.0-3.0); HEMATOCRIT 26.4 % (36.0-47.0); HEMOGLOBIN 7.9 g/dl (12.0-15.5); LYMPH # 0.9 10^3/uL (1.5-5.0); LYMPH % 27.8 % (24.0-44.0); MEAN CORPUSCULAR HEMOGLOBIN 24.5 pg (27.0-33.0); MEAN CORPUSCULAR HGB CONC 29.9 g/dl (32.0-36.5); MEAN CORPUSCULAR VOLUME 81.7 fl (80.0-96.0); MONO # 0.9 10^3/uL (0.0-0.8); MONO % 26.6 % (0.0-5.0); NEUTROPHILS # 1.4 10^3/uL (1.5-8.5); NEUTROPHILS % 40.8 % (36.0-66.0); PLATELET COUNT, AUTOMATED 291 10^3/uL (150-450); RED BLOOD COUNT 3.23 10^6/uL (4.00-5.40); WHITE BLOOD COUNT 3.3 10^3/uL (4.0-10.0)
[2019-09-23] MEDS: ASPIRIN 81 MG CHEW TABLET PO SCH (08:55)
[2019-09-23] MEDS: PANTOPRAZOLE 40MG TAB (PROTONIX) PO SCH (08:55)
[2019-09-23] MEDS: FERROUS SULFATE 325MG TAB PO SCH (08:55)
[2019-09-23 08:56] VITALS: BP 146/83
[2019-09-23] MEDS: MULTIVITAMINS/MINERALS THERAP 1 TAB PO SCH (08:56)
[2019-09-23] MEDS: CARVedilol 12.5 MG TAB PO SCH (08:56)
[2019-09-23] MEDS ORDERED: HEPARIN SOD (PORCINE) 5000 UNITS/ML VIAL (J1644 PER 1000UNITS) SQ SCH (09:00)
[2019-09-23] MEDS ORDERED: FERR325T18 PO (10:27)
[2019-09-23] MEDS ORDERED: LEVA750T7 PO (10:27)
[2019-09-23] MEDS ORDERED: CEFD300CAP PO (10:56)
--- NOTE | 2019-09-23 20:52 | DS.PDOC ---
Discharge Summary General Date of Admission Sep 20, 2019 at 09:11 Date of Discharge 09/24/19 Attending Physician: ANG GUZMAN MD Discharge Summary PROCEDURES PERFORMED DURING STAY: None ADMITTING DIAGNOSES: 1. E. Coli bacteremia DISCHARGE DIAGNOSES: 1. E. coli bacteremia COMPLICATIONS/CHIEF COMPLAINT: Bacteremia. HISTORY OF PRESENT ILLNESS: 84 y.o female w/ PMH of malignancy on chemotherapy was admitted for E. coli bacteremia, source unknown, work up negative, clinicall y stable throughout hospitalization. She was treated w/ IV antibiotics, procal trending down, will be switched to cefdinir 300 mg BID based on sensitivities to complete antibiotic course. She is hemodynamically stable for discharge and outpatient follow up. HOSPITAL COURSE: As above DISCHARGE MEDICATIONS: Please see below. ALLERGIES: Please see below. PHYSICAL EXAMINATION: VITAL SIGNS: Please see below. GENERAL: No distress HEENT: Normocephalic, atraumatic, moist mucous membranes NECK: Supple CARDIOVASCULAR EXAMINATION: S1, S2, no murmurs RESPIRATORY EXAMINATION: Clear to auscultation, no wheezing ABDOMINAL EXAMINATION: Soft, nontender, nondistended, positive bowel sounds EXTREMITIES: Range of motion intact SKIN: No rash NEUROLOGICAL EXAMINATION: no focal deficits PSYCHIATRIC EXAMINATION: Calm and cooperative LABORATORY DATA: Please see below. PROGNOSIS: Fair ACTIVITY: As tolerated] DIET: Dash DISCHARGE PLAN: Follow up w/ PCP in 1-2 weeks DISPOSITION: 01 Home, Self-Care. DISCHARGE INSTRUCTIONS: 1. As above DISCHARGE CONDITION: Stable TIME SPENT ON DISCHARGE: Greater than 25 minutes. Vital Signs/I&Os Vital Signs Date Time Temp Pulse Resp B/P (MAP) Pulse Ox O2 Delivery O2 Flow Rate FiO2 09/23/19 08:56 81 146/83 09/23/19 06:00 98.1 17 98 Room Air I&O- Last 24 Hours up to 6 AM 09/23/19 06:00 Intake Total 600 ml Output Total 500 ml Balance 100 ml Laboratory Data Labs 24H Laboratory Tests 2 09/23/19 05:19: Anion Gap 7L, Glomerular Filtration Rate > 60.0, Calcium Level 8.6L 09/23/19 06:01: Immature Granulocyte % (Auto) 0.6, Neutrophils (%) (Auto) 40.8, Lymphocytes (%) (Auto) 27.8, Monocytes (%) (Auto) 26.6H, Eosinophils (%) (Auto) 3.9H, Basophils (%) (Auto) 0.3, Neutrophils # (Auto) 1.4L, Lymphocytes # (Auto) 0.9L, Monocytes # (Auto) 0.9H, Eosinophils # (Auto) 0.1, Basophils # (Auto) 0.0, Nucleated Red Blood Cells % (auto) 0.0 CBC/BMP Laboratory Tests 09/23/19 05:19 09/23/19 06:01 Microbiology Microbiology 09/23/19 Stool Occult Blood (CINDY) - Final, Complete 09/20/19 Blood Culture - Preliminary, Resulted No Growth after 72 hours. All specime... 09/20/19 Blood Culture - Preliminary, Resulted No Growth after 72 hours. All specime... Discharge Medications Scheduled Aspirin (Aspirin) 81 Mg Tab.chew, 81 MG PO DAILY, (Reported) Calcium Carbonate (Calcium) 600 Mg Tablet, 600 MG PO DAILY, (Reported) Carvedilol (Carvedilol) 12.5 Mg Tablet, 12.5 MG PO BID, (Reported) Cefdinir (Cefdinir) 300 Mg Capsule, 1 CAP PO BID Ferrous Sulfate (Ferrous Sulfate) 325 Mg Tablet, 325 MG PO BID Multivitamins (Thera M Plus Tablet) 1 Each Tablet, 1 TAB PO DAILY, (Reported) Pantoprazole Sodium (Pantoprazole Sodium) 40 Mg Tablet.dr, 40 MG PO BID, (Reported) Scheduled PRN Hydrocodone/Acetaminophen (Hydrocodone-Acetamin 5-325 mg) 1 Each Tablet, 1 TAB PO Q8H PRN for PAIN, (Reported) Tizanidine HCl (Tizanidine HCl) 2 Mg Tablet, 2 MG PO TID PRN for MUSCLE SPASMS, (Reported) Allergies Coded Allergies: latex (Verified Allergy, Mild, itching, 09/11/18) tetracycline (Verified Adverse Reaction, Intermediate, mouth sores, 09/11/18) ANG GUZMAN MD Sep 23, 2019 20:52
[2019-09-24] MEDS ORDERED: FERR325T3 PO (20:01)
[2019-09-24] MEDS ORDERED: CEFD1CAP8 PO (20:01)
[2019-09-24] MEDS ORDERED: VITAD1000T PO (20:01)
== END 2019-09-23 12:57 | disposition home or self-care (01) | DRG 872 ==
LOC: M MSPAV 09:11
PROVIDERS: ADMIT Internal Medicine; ATTEND Internal Medicine
DX: R78.81 Bacteremia (principal); C24.1 Malignant neoplasm of ampulla of Vater; I10 Essential (primary) hypertension; D63.0 Anemia in neoplastic disease; Z79.82 Long term (current) use of aspirin; Z79.899 Other long term (current) drug therapy; Z88.1 Allergy status to other antibiotic agents; Z92.21 Personal history of antineoplastic chemotherapy

== ENCOUNTER 2019-09-24 19:14 | Inpatient (IN) | payer MEDICARE ==
[~2019-09-24] VITALS: Ht 157.5 cm; Wt 94.4 kg
[~2019-09-24 19:14] MED LIST changes: +CEFD300CAP PO; +FERR325T18 PO; +LEVA750T7 PO
[2019-09-24] MEDS ORDERED: ACETAMINOPHEN TAB 650MG DOSE (2X325MG) PO ONE (19:45)
[2019-09-24] MEDS ORDERED: CEFD1CAP8 PO (20:01)
[2019-09-24] MEDS ORDERED: VITAD1000T PO (20:01)
[2019-09-24] MEDS ORDERED: FERR325T3 PO (20:01)
[2019-09-24 20:26] LABS: BASO % 0.2 % (0.0-1.0); EOS # 0.1 10^3/uL (0.0-0.5); EOS % 0.7 % (0.0-3.0); HEMATOCRIT 29.4 % (36.0-47.0); HEMOGLOBIN 8.8 g/dl (12.0-15.5); LYMPH # 0.7 10^3/uL (1.5-5.0); MEAN CORPUSCULAR HEMOGLOBIN 24.6 pg (27.0-33.0); MEAN CORPUSCULAR HGB CONC 29.9 g/dl (32.0-36.5); MEAN CORPUSCULAR VOLUME 82.4 fl (80.0-96.0); MONO # 1.4 10^3/uL (0.0-0.8); MONO % 16.1 % (0.0-5.0); NEUTROPHILS # 6.6 10^3/uL (1.5-8.5); NEUTROPHILS % 73.9 % (36.0-66.0); PLATELET COUNT, AUTOMATED 291 10^3/uL (150-450); RED BLOOD COUNT 3.57 10^6/uL (4.00-5.40)
[2019-09-24 20:45] LABS: INR 1.16; PROTHROMBIN TIME 14.5 SECONDS (11.8-14.0)
[2019-09-24 20:46] LABS: PARTIAL THROMBOPLASTIN TIME 30.7 SECONDS (25.0-38.4)
[2019-09-24 20:47] LABS: BLOOD UREA NITROGEN 14 MG/DL (7-18); CALCIUM LEVEL 8.6 MG/DL (8.8-10.2); CARBON DIOXIDE LEVEL 29 MEQ/L (21-32); CHLORIDE LEVEL 101 MEQ/L (98-107); CREATININE FOR GFR 0.78 MG/DL (0.55-1.30); GLOMERULAR FILTRATION RATE > 60.0 (>32); GLUCOSE, FASTING 131 MG/DL (70-100); POTASSIUM SERUM 4.4 MEQ/L (3.5-5.1); SODIUM LEVEL 134 MEQ/L (136-145)
[2019-09-24 20:48] LABS: ALBUMIN 2.8 GM/DL (3.2-5.2); ALT/SGPT 22 U/L (12-78); BILIRUBIN,TOTAL 0.7 MG/DL (0.2-1.0); C REACTIVE PROTEIN QUANTITATIV 2.37 MG/DL (0.00-0.30); CK-MB VALUE MASS < 1.0 NG/ML (<3.6); CPK CREATINE PHOSPHOKINASE 19 U/L (26-192); LDH LACTATE DEHYDROGENASE 141 U/L (84-246); MB/CK RELATIVE INDEX 5.26 (< OR =4); TOTAL PROTEIN 6.5 GM/DL (6.4-8.2); TROPONIN I < 0.02 NG/ML (< 0.10)
[2019-09-24 21:02] LABS: D-DIMER QUANT 3812.88 ng/ml (<500)
[2019-09-24] MEDS ORDERED: ISOVUE-370 76% 100ML VIAL (Q9967) As Ordered ONE (21:41)
--- NOTE | 2019-09-24 23:18 | REPVR ---
PROCEDURE INFORMATION: Exam: CT Angiography Chest With Contrast Exam date and time: 09/24/2019 10:50 PM Age: 84 years old Clinical indication: Elevated d-dimer; Evaluate for pulmonary embolism (has known aneurysm). History of metastatic lung cancer. TECHNIQUE: Imaging protocol: Computed tomographic angiography of the chest with intravenous contrast. 3D rendering: MIP and/or 3D reconstructed images were created by the technologist. Radiation optimization: All CT scans at this facility use at least one of these dose optimization techniques: automated exposure control; mA and/or kV adjustment per patient size (includes targeted exams where dose is matched to clinical indication); or iterative reconstruction. Contrast material: ISOVUE 370; Contrast volume: 75 ml; Contrast route: IV; COMPARISON: 1. CT ANGIO CHEST 02/16/2017 12:[address] Chest with contrast 04/11/2019 4:46:03 PM FINDINGS: Tubes, catheters and devices: There is a left internal jugular MediPort terminating in the superior vena cava. Pulmonary arteries: No pulmonary embolism is identified. Aorta: There is no thoracic aortic aneurysm, pseudoaneurysm, penetrating atherosclerotic ulcer, intramural hematoma, or dissection. There are moderate atherosclerotic calcifications. Superior vena cava: Patent. Other veins: There is opacification of numerous veins in the chest wall and thoracic spine. Tracheobronchial tree: Normal. Lungs: There are multiple irregular pulmonary masses in the right upper lobe, right middle lobe, right lower lobe, left upper lobe, and left lower lobe, some of which have increased in size and others have developed since the prior CT chest on 04/11/2019. The largest spiculated mass in the apicoposterior segment of the left upper lobe measures 25 mm and has increased in size from 17 mm since the prior CT chest on 04/11/2019 (image 35 of the axial series 402). 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 Pleural space: Normal. No pneumothorax or pleural effusion. There is a small right pleural effusion. No pneumothorax. No calcified pleural plaques. Heart: No cardiomegaly or pericardial effusion. The ratio of the diameter of the right ventricle to the diameter of the left ventricle measures less than 1, which is within normal limits and there is no evidence for a right ventricular strain. There are calcifications of the aortic valve and mitral annulus. No pericardial effusion is noted. Mediastinum: No mediastinal mass, fluid collection, or pneumomediastinum. Gallbladder and bile ducts: There is pneumobilia in the intrahepatic biliary ducts, which can also be seen in the prior CT chest on 04/11/2019. The biliary tree was not fully imaged. Spleen: There are calcified granulomas in the spleen. No splenomegaly is noted. Lymph nodes: There are precarinal, subcarinal, and right hilar lymph nodes measuring 8 mm, 9 mm, and 10 mm respectively, which are stable compared to the prior CT chest on 04/11/2019. Bones/joints: No fracture or dislocation is noted. There is no suspicious osteolytic or osteoblastic lesion. There are endplate spurs in the thoracic spine. Soft tissues: Unremarkable. No soft tissue fluid collection. IMPRESSION: 1. No pulmonary embolism. 2. Progression in the pulmonary metastases since the prior CT chest on 04/11/2019. Fleischner follow up recommendations for incidental nodules are not indicated. Follow up per patient's medical condition. Electronically signed by: Curry Hui On 09/24/2019 23:18:08 PM
[2019-09-24] MEDS ORDERED: CEFEPIME HCL 2 GM in D5W MINI-BAG PLUS 50 ML IV ONE (23:45)
[2019-09-25] VITALS (11 sets, daily range): BP systolic 93–130; BP diastolic 50–64; O2SAT 96–97
[2019-09-25] MEDS ORDERED: NORCO, ANEXSIA 5/325MG TABLET (HYDROcodone/ACETAMINOPHEN) PO PRN (00:45)
[2019-09-25] MEDS ORDERED: ACETAMINOPHEN TAB 650MG DOSE (2X325MG) PO PRN (00:45)
--- NOTE | 2019-09-25 01:09 | HPEPDOC ---
[facility] Medical History & Physical Date of Admission Sep 25, 2019 Date of Service: Sep 25, 2019 Primary Care Physician: Eliana Rosas Attending Physician: DIAMOND ARRINGTON MD History and Physical PRIMARY CARE PROVIDER: Eliana Rosas ATTENDING: Dr. Arrington CHIEF COMPLAINT: Fever HISTORY OF PRESENT ILLNESS: Patient is an 84 year old female presenting with chief complaint of fever. Patient was recently discharged from [facility] on 09/20/2019 with diagnosis of E.Coli bacteremia from unknown source. She was at the emergency department the day prior to her admission and had 2 blood cultures drawn at that time showing E.Coli with sensitivities. Once these sensitivities returned her therapy was deescalated from IV cefepime to oral Cefdinir and after 4 days of inpatient stay she was discharged home. History is limited as patient has some baseline dementia, but her daughter Abiola, available by phone stated that following discharge they noticed she was weaker, more fatigued than baseline, and was found with tmax of 102.8. Her daughter states the discharge instructions stated she should contact the hospital if the patient was febrile so she called the ED and they advised she come in for evaluation. Work up in the ED was largely benign showing only an elevated CRP and d-dimer with negative CTA. PAST MEDICAL HISTORY: Adenocarcinoma of the ampulla of vater with metastatic disease to the lung. Iron deficiency anemia Hypertension PAST SURGICAL HISTORY: Whipple's procedure Cholecystectomy Tubal ligation Appendectomy D&C Right carpal tunnel surgery SOCIAL HISTORY: Denies alcohol use, denies use of tobacco products, denies any marijuana, heroin, cocaine, or PCP use. FAMILY HISTORY: Mother at the age of 78 from pneumonia. Father of alcohol related problems. 2 siblings, both of whom from lung cancer. ALLERGIES: Please see below. REVIEW OF SYSTEMS: GENERAL: Denies chills, recent unexpected weight change, night sweats, hemoptysis. Admits to fevers. HEENT: Denies headache, dizziness, vision changes, hearing loss, sore throat CARDIOVASCULAR: Denies chest pain, palpitations, orthopnea RESPIRATORY: Denies shortness of breath, wheezing, cough GASTROINTESTINAL: denies nausea, vomiting, abdominal pain, constipation, diarrhea, bloody stool GENITOURINARY: Denies dysuria,urinary urgency, hematuria. MUSCULOSKELETAL: Denies muscle/joint pain, weakness, stiffness NEUROLOGICAL: Denies any numbness/tingling, focal weakness, or syncope HOME MEDICATIONS: Please see below. PHYSICAL EXAMINATION: Vitals: (see below) General: Cachectic appearing female in no acute distress, laying comfortably in bed. HEENT: Normocephalic, atraumatic. EOMI. No scleral icterus. Moist mucous membranes. No pharyngeal erythema or uvular deviation. Neck: No JVD, lymphadenopathy, or thyromegaly. Left IJ infusaport Cardiac: RRR, Normal S1 and S2, No murmurs, gallops, rubs. Pulm: Diminished lung sounds bilaterally. No wheezing, crackles, rhonchi appreciated on auscultation. Abd: Mediport in place on Left side of chest. Bowel Sounds present. Abdomen is soft, non-tender, non-distended. No guarding, rebound tenderness, or rigidity. No hepatosplenomegaly. No masses or eccymosis. Ext: No edema or cyanosis Neuro: A&O to person, year, location, but not to situation. CN 3-12 grossly intact. LABORATORY DATA: See below. IMAGING: CXR: showing Right sided pleural effusion CTA: "No pulmonary embolism. Small right-sided pleural effusion. Progression of pulmonary metastases since prior chest CT on 04/11/2019" Pleural effusion is increased compared to 06/17/[address] MICROBIOLOGY: Please see below. ASSESSMENT/PLAN: #. Fever of unknown origin - Patient will be admitted to med/surg floor and started on IV Zosyn empirically to cover for gram negative infection as she previously had E.Coli bacteremia. Clinically she appears well and at baseline with her only complaint being a headache and hip pain from the positioning of the bed in the ED. - CXR, CTA, respiratory panel, UA all negative with no elevation in WBC count. Will order pro-calcitonin as this was downtrending on last admission, CRP mildly elevated. MRSA screen ordered. COVID precautions in place. - DDx includes new or insufficiently treated bacterial infection, infected infusaport, R-sided empyema, COVID, fever 2/2 her metastatic cancer, occult abscess, drug fever. #. Metastatic adenocarcinoma of the ampulla of vater -Patient of Dr. Morocho's on Abraxane and Gemcitabine #. Hypertension -Continue carvedilol #. Iron deficiency anemia -Hgb at baseline compared to prior, continue PO iron supplementation. GI prophylaxis: Continue pantoprazole -DVT prophy: teds/seq's, heparin Daughter, Abiola, requested daily updates as she had no idea what was happening with her mother during the last admission; [phone] Vital Signs Vital Signs Date Time Temp Pulse Resp B/P (MAP) Pulse Ox O2 Delivery O2 Flow Rate FiO2 09/24/19 22:51 97.9 68 18 127/62 (83) 98 09/24/19 20:00 Room Air 09/24/19 20:00 98 Laboratory Data Labs 24H Laboratory Tests 2 09/24/19 20:14: Immature Granulocyte % (Auto) 1.1, Neutrophils (%) (Auto) 73.9H, Lymphocytes (%) (Auto) 8.0L, Monocytes (%) (Auto) 16.1H, Eosinophils (%) (Auto) 0.7, Basophils (%) (Auto) 0.2, Neutrophils # (Auto) 6.6, Lymphocytes # (Auto) 0.7L, Monocytes # (Auto) 1.4H, Eosinophils # (Auto) 0.1, Basophils # (Auto) 0.0, Nucleated Red Blood Cells % (auto) 0.0, Prothrombin Time 14.5H, Prothromb Time International Ratio 1.16, Activated Partial Thromboplast Time 30.7, D-Dimer, Quantitative 3812.88H, Urine Color YELLOW, Urine Appearance CLEAR, Urine pH 7.0, Urine Specific [place] 1.018, Urine Protein NEGATIVE, Urine Glucose (UA) NEGATIVE, Urine Ketones NEGATIVE, Urine Blood NEGATIVE, Urine Nitrite NEGATIVE, Urine Bilirubin NEGATIVE, Urine Urobilinogen 2.0H, Urine Leukocyte Esterase NEGATIVE, Urine WBC (Auto) 2, Urine RBC (Auto) 3, Urine Hyaline Casts (Auto) 0, Urine Bacteria (Auto) NEGATIVE, Urine Squamous Epithelial Cells 1, Urine Mucus (Auto) SMALL, Urine Sperm (Auto) , Anion Gap 4L, Glomerular Filtration Rate > 60.0, Lactic Acid Level 1.1, Calcium Level 8.6L, Total Bilirubin 0.7, Aspartate Amino Transf (AST/SGOT) 22, Alanine Aminotransferase (ALT/SGPT) 22, Alkaline Phosphatase 247H, Lactate Dehydrogenase 141, Total Creatine Kinase 19L, Creatine Kinase MB < 1.0, Creatine Kinase MB Relative Index 5.26H, Troponin I < 0.02, C- Reactive Protein, Quantitative 2.37H, Total Protein 6.5, Albumin 2.8L, Albumin/Globulin Ratio 0.76L CBC/BMP Laboratory Tests 09/24/19 20:14 Microbiology Microbiology 09/24/19 Blood Culture, Received Pending 09/24/19 Blood Culture, Received Pending 09/24/19 Respiratory Virus Panel (PCR) (CINDY) - Final, Complete 09/24/19 Coronavirus COVID-19 PCR (CINDY), Received Pending Home Medications Scheduled Aspirin (Aspirin) 81 Mg Tab.chew, 81 MG PO DAILY Calcium Carbonate (Calcium) 600 Mg Tablet, 600 MG PO DAILY Carvedilol (Carvedilol) 12.5 Mg Tablet, 12.5 MG PO BID Cefdinir (Cefdinir) 300 Mg Capsule, 300 MG PO BID STARTED 09/23/19 FOR 7 DAYS Cholecalciferol (Vitamin D3) (Vitamin D3) 1,000 Unit Tablet, 1,000 UNITS PO D AILY Ferrous Sulfate (Ferrous Sulfate) 325 Mg Tablet.dr, 325 MG PO BID Multivitamins (Thera M Plus Tablet) 1 Each Tablet, 1 TAB PO DAILY Pantoprazole Sodium (Pantoprazole Sodium) 40 Mg Tablet.dr, 40 MG PO BID Scheduled PRN Hydrocodone/Acetaminophen (Hydrocodone-Acetamin 5-325 mg) 1 Each Tablet, 1 TAB PO Q8H PRN for PAIN Tizanidine HCl (Tizanidine HCl) 2 Mg Tablet, 2 MG PO TID PRN for MUSCLE SPASMS Allergies Coded Allergies: latex (Verified Allergy, Mild, itching, 09/24/19) tetracycline (Verified Adverse Reaction, Intermediate, mouth sores, 09/24/19) A-FIB/CHADSVASC A-FIB History Current/History of A-Fib/PAF?: No GME ATTESTATION GME ATTESTATION My faculty preceptor for this patient encounter was physically present during the encounter and was fully available. All aspects of the patient interview, examination, medical decision making process, and medical care plan development were reviewed and approved by the faculty preceptor. The faculty preceptor is aware and concurs with the plan as stated in the body of this note and will attest to such by his/her cosignature. ATTENDING NOTE I have independently interviewed and examined this patient at the bedside, and agree with the documentation above as written by my resident physician. The patient's questions have been answered satisfactorily. LIDIA GONZALEZ DO Sep 25, 2019 01:09 DIAMOND ARRINGTON MD Sep 25, 2019 20:36
[2019-09-25 01:26] LABS: BASO % 0.2 % (0.0-1.0); EOS # 0.1 10^3/uL (0.0-0.5); EOS % 0.7 % (0.0-3.0); HEMATOCRIT 25.1 % (36.0-47.0); HEMOGLOBIN 7.7 g/dl (12.0-15.5); LYMPH # 1.2 10^3/uL (1.5-5.0); LYMPH % 14.9 % (24.0-44.0); MEAN CORPUSCULAR HEMOGLOBIN 25.4 pg (27.0-33.0); MEAN CORPUSCULAR HGB CONC 30.7 g/dl (32.0-36.5); MEAN CORPUSCULAR VOLUME 82.8 fl (80.0-96.0); MONO # 1.6 10^3/uL (0.0-0.8); NEUTROPHILS # 5.1 10^3/uL (1.5-8.5); NEUTROPHILS % 63.1 % (36.0-66.0); PLATELET COUNT, AUTOMATED 233 10^3/uL (150-450); RED BLOOD COUNT 3.03 10^6/uL (4.00-5.40); WHITE BLOOD COUNT 8.1 10^3/uL (4.0-10.0)
[2019-09-25] MEDS: PIPERACILLIN/TAZOBACTAM SOD 3.375 GM in D5W MINI-BAG PLUS 50 ML IV SCH ×4 (01:52→20:05)
--- NOTE | 2019-09-25 04:55 | REP ---
Clinical: Covid-19 workup. Comparison: 05/24/2019. Findings: Small to moderate right pleural effusion noted. Right basilar atelectasis and subtle scattered alveolar infiltrates cannot be excluded. No pneumothorax. Mediastinum and cardiac silhouette are within normal limits. Double-lumen [id number] with tip in the SVC. Underlying rounded metastatic lesions are again noted. Impression: 1. Small right pleural effusion with subtle bilateral air space disease. 2. Known underlying metastatic lesions. Electronically Signed by Abdirashid Galvan MD 09/25/2019 04:46 A
[2019-09-25 05:55] LABS: HEMATOCRIT 25.5 % (36.0-47.0); HEMOGLOBIN 7.7 g/dl (12.0-15.5); MEAN CORPUSCULAR HGB CONC 30.2 g/dl (32.0-36.5); MEAN CORPUSCULAR VOLUME 82.8 fl (80.0-96.0); PLATELET COUNT, AUTOMATED 236 10^3/uL (150-450); RED BLOOD COUNT 3.08 10^6/uL (4.00-5.40)
[2019-09-25] MEDS: HEPARIN SOD (PORCINE) 5000UNITS/ML VIAL (J1644 PER 1000UNITS) SC SCH ×3 (06:00→21:00)
[2019-09-25 06:33] LABS: BLOOD UREA NITROGEN 15 MG/DL (7-18); C REACTIVE PROTEIN QUANTITATIV 3.24 MG/DL (0.00-0.30); CALCIUM LEVEL 8.5 MG/DL (8.8-10.2); CARBON DIOXIDE LEVEL 29 MEQ/L (21-32); CHLORIDE LEVEL 103 MEQ/L (98-107); CREATININE FOR GFR 0.77 MG/DL (0.55-1.30); GLOMERULAR FILTRATION RATE > 60.0 (>32); GLUCOSE, FASTING 107 MG/DL (70-100); POTASSIUM SERUM 4.4 MEQ/L (3.5-5.1); SODIUM LEVEL 136 MEQ/L (136-145)
[2019-09-25] MEDS: ASPIRIN 81 MG CHEW TABLET PO SCH (08:29)
[2019-09-25] MEDS: FERROUS SULFATE 325MG TAB PO SCH ×2 (08:29→20:06)
[2019-09-25] MEDS: PANTOPRAZOLE 40MG TAB (PROTONIX) PO SCH ×2 (08:29→20:05)
[2019-09-25] MEDS: CARVedilol 12.5 MG TAB PO SCH ×2 (08:47→20:05)
[2019-09-25] MEDS: methocarbamoL 500 MG TAB PO SCH ×3 (11:16→20:05)
--- NOTE | 2019-09-25 15:06 | ECGEPIP ---
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
--- NOTE | 2019-09-25 18:48 | IPNPDOC ---
Date Seen The patient was seen on 09/25/19. 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 Coli bacteremia. She was discharged on oral antibiotics and returned last night with fever, otherwise asymptomatic. She was seen in the morning, comfortable in bed, no complaints, doesn't even know why she is back in the hospital, wishes to go back home. 10 point review of system is negative except for above PHYSICAL EXAMINATION: VITAL SIGNS: Please see below. GENERAL: No distress HEENT: Normocephalic, atraumatic, moist mucous membranes NECK: Supple CARDIOVASCULAR EXAMINATION: S1, S2, no murmurs RESPIRATORY EXAMINATION: Clear to auscultation, no wheezing ABDOMINAL EXAMINATION: Soft, nontender, nondistended, positive bowel sounds EXTREMITIES: Range of motion intact SKIN: No rash NEUROLOGICAL EXAMINATION: no focal deficits PSYCHIATRIC EXAMINATION: Calm and cooperative LABORATORY DATA: See below. MICROBIOLOGY: Please see below. ASSESSMENT: 84-year-old female with past medical history of metastatic adenocarcinoma of Vater on chemotherapy was recently admitted for Escherichia coli bacteremia, who returns with fever. PLAN: 1. Fever Recent admission for pansensitive Escherichia coli bacteremia, was discharged on oral antibiotics, returns with fever, source of bacteremia was unknown, possible port, repeat cultures pending, a culture has also been drawn from the port, we'll infuse antibiotics via port for now, pro-calcitonin has trended down really well since initiation of antibiotics during previous hospitalization. 2. Metastatic adenocarcinoma of Vater. Status post Whipple's procedure, currently receiving Abraxane and gemcitabine in the outpatient setting. 3. Hypertension. Continue Coreg 4. Anemia. Studies consistent with anemia of chronic disease, H/H stable. DVT prophylaxis: Heparin SubQ GI prophylaxis: Home PPI VS, I&O, 24H, Fishbone Vital Signs/I&O Vital Signs Date Time Temp Pulse Resp B/P (MAP) Pulse Ox O2 Delivery O2 Flow Rate FiO2 09/25/19 14:00 98.4 70 15 107/58 (74) 98 Room Air 09/25/19 04:00 0.0 09/24/19 20:00 98 I&O- Last 24 Hours up to 6 AM 09/25/19 06:00 Intake Total 190 ml Output Total 420 ml Balance -230 ml Laboratory Data 24H LABS Laboratory Tests 2 09/24/19 20:14: Immature Granulocyte % (Auto) 1.1, Neutrophils (%) (Auto) 73.9H, Lymphocytes (%) (Auto) 8.0L, Monocytes (%) (Auto) 16.1H, Eosinophils (%) (Auto) 0.7, Basophils (%) (Auto) 0.2, Neutrophils # (Auto) 6.6, Lymphocytes # (Auto) 0.7L, Monocytes # (Auto) 1.4H, Eosinophils # (Auto) 0.1, Basophils # (Auto) 0.0, Nucleated Red Blood Cells % (auto) 0.0, Prothrombin Time 14.5H, Prothromb Time International Ratio 1.16, Activated Partial Thromboplast Time 30.7, D-Dimer, Quantitative 3812.88H, Urine Color YELLOW, Urine Appearance CLEAR, Urine pH 7.0, Urine Specific [place] 1.018, Urine Protein NEGATIVE, Urine Glucose (UA) NEGATIVE, Urine Ketones NEGATIVE, Urine Blood NEGATIVE, Urine Nitrite NEGATIVE, Urine Bilirubin NEGATIVE, Urine Urobilinogen 2.0H, Urine Leukocyte Esterase NEGATIVE, Urine WBC (Auto) 2, Urine RBC (Auto) 3, Urine Hyaline Casts (Auto) 0, Urine Bacteria (Auto) NEGATIVE, Urine Squamous Epithelial Cells 1, Urine Mucus (Auto) SMALL, Urine Sperm (Auto) , Anion Gap 4L, Glomerular Filtration Rate > 60.0, Lactic Acid Level 1.1, Calcium Level 8.6L, Total Bilirubin 0.7, Aspartate Amino Transf (AST/SGOT) 22, Alanine Aminotransferase (ALT/SGPT) 22, Alkaline Phosphatase 247H, Lactate Dehydrogenase 141, Total Creatine Kinase 19L, Creatine Kinase MB < 1.0, Creatine Kinase MB Relative Index 5.26H, Troponin I < 0.02, C- Reactive Protein, Quantitative 2.37H, Total Protein 6.5, Albumin 2.8L, Albumin/Globulin Ratio 0.76L, Procalcitonin 1.85 09/25/19 01:13: Immature Granulocyte % (Auto) 1.1, Neutrophils (%) (Auto) 63.1, Lymphocytes (%) (Auto) 14.9L, Monocytes (%) (Auto) 20.0H, Eosinophils (%) (Auto) 0.7, Basophils (%) (Auto) 0.2, Neutrophils # (Auto) 5.1, Lymphocytes # (Auto) 1.2L, Monocytes # (Auto) 1.6H, Eosinophils # (Auto) 0.1, Basophils # (Auto) 0.0, Nucleated Red Blood Cells % (auto) 0.0, Lactic Acid Level 0.5, Procalcitonin 1.86 09/25/19 05:09: Nucleated Red Blood Cells % (auto) 0.0, Anion Gap 4L, Glomerular Filtration Rate > 60.0, Calcium Level 8.5L, C-Reactive Protein, Quantitative 3.24H, Methicillin- Resist S.aureus DNA PCR NOT DETECTED CBC/BMP Laboratory Tests 09/24/19 20:14 09/25/19 01:13 09/25/19 05:09 Microbiology Microbiology 09/25/19 Blood Culture, Received Pending 09/25/19 Blood Culture, Received Pending 09/24/19 Blood Culture, Received Pending 09/24/19 Blood Culture, Received Pending 09/24/19 Respiratory Virus Panel (PCR) (CINDY) - Final, Complete 09/24/19 Coronavirus COVID-19 PCR (CINDY), Received Pending ANG GUZMAN MD Sep 25, 2019 18:48
[2019-09-25] MEDS ORDERED: DOCUSATE SODIUM 100 MG CAP PO PRN (21:00)
[2019-09-25] MEDS: SODIUM CHLORIDE 0.9% INJ 10 ML SYR IV PRN (21:30)
[2019-09-26] VITALS (10 sets, daily range): BP systolic 124–148; BP diastolic 63–80; O2SAT 96–97
[2019-09-26] MEDS: PIPERACILLIN/TAZOBACTAM SOD 3.375 GM in D5W MINI-BAG PLUS 50 ML IV SCH ×4 (01:15→20:24)
[2019-09-26] MEDS: SODIUM CHLORIDE 0.9% INJ 10 ML SYR IV PRN ×3 (02:38→21:38)
[2019-09-26] MEDS: HEPARIN SOD (PORCINE) 5000UNITS/ML VIAL (J1644 PER 1000UNITS) SC SCH ×3 (05:00→21:38)
[2019-09-26 07:22] LABS: BASO % 0.1 % (0.0-1.0); EOS # 0.2 10^3/uL (0.0-0.5); EOS % 2.7 % (0.0-3.0); HEMATOCRIT 23.6 % (36.0-47.0); HEMOGLOBIN 7.3 g/dl (12.0-15.5); LYMPH # 0.9 10^3/uL (1.5-5.0); LYMPH % 12.7 % (24.0-44.0); MEAN CORPUSCULAR HEMOGLOBIN 25.6 pg (27.0-33.0); MEAN CORPUSCULAR HGB CONC 30.9 g/dl (32.0-36.5); MEAN CORPUSCULAR VOLUME 82.8 fl (80.0-96.0); MONO # 1.8 10^3/uL (0.0-0.8); MONO % 25.4 % (0.0-5.0); NEUTROPHILS % 57.8 % (36.0-66.0); PLATELET COUNT, AUTOMATED 236 10^3/uL (150-450); RED BLOOD COUNT 2.85 10^6/uL (4.00-5.40); WHITE BLOOD COUNT 6.9 10^3/uL (4.0-10.0)
[2019-09-26 08:01] LABS: BLOOD UREA NITROGEN 14 MG/DL (7-18); CALCIUM LEVEL 8.4 MG/DL (8.8-10.2); CARBON DIOXIDE LEVEL 28 MEQ/L (21-32); CHLORIDE LEVEL 103 MEQ/L (98-107); CREATININE FOR GFR 0.81 MG/DL (0.55-1.30); GLOMERULAR FILTRATION RATE > 60.0 (>32); GLUCOSE, FASTING 99 MG/DL (70-100); POTASSIUM SERUM 4.8 MEQ/L (3.5-5.1); SODIUM LEVEL 136 MEQ/L (136-145)
[2019-09-26] MEDS: methocarbamoL 500 MG TAB PO SCH ×3 (08:58→20:24)
[2019-09-26] MEDS: FERROUS SULFATE 325MG TAB PO SCH ×2 (08:59→20:24)
[2019-09-26] MEDS: CARVedilol 12.5 MG TAB PO SCH ×2 (08:59→20:25)
[2019-09-26] MEDS: PANTOPRAZOLE 40MG TAB (PROTONIX) PO SCH ×2 (08:59→20:24)
[2019-09-26] MEDS: ASPIRIN 81 MG CHEW TABLET PO SCH (08:59)
--- NOTE | 2019-09-26 09:30 | IPNPDOC ---
Date Seen The patient was seen on 09/26/19. 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 Coli bacteremia. She was discharged on oral antibiotics and returned with fever. Patient remains asymptomatic and clinically stable, source of infection still remains unclear, workup is being done to rule out her Pxzbmi-a-Cqzi as a possible source, no acute events overnight, without any complacent this time. 10 point review of system is negative except for above PHYSICAL EXAMINATION: VITAL SIGNS: Please see below. GENERAL: No distress HEENT: Normocephalic, atraumatic, moist mucous membranes NECK: Supple CARDIOVASCULAR EXAMINATION: S1, S2, no murmurs RESPIRATORY EXAMINATION: Clear to auscultation, no wheezing ABDOMINAL EXAMINATION: Soft, nontender, nondistended, positive bowel sounds EXTREMITIES: Range of motion intact SKIN: No rash NEUROLOGICAL EXAMINATION: no focal deficits PSYCHIATRIC EXAMINATION: Calm and cooperative LABORATORY DATA: See below. MICROBIOLOGY: Please see below. ASSESSMENT: 84-year-old female with past medical history of metastatic adenocarcinoma of Vater on chemotherapy was recently admitted for Escherichia coli bacteremia, who returns with fever. PLAN: 1. Fever Recent admission for pansensitive Escherichia coli bacteremia, was discharged on oral antibiotics, returns with fever, source of bacteremia was unknown, possibly [id number]-[id number], repeat cultures pending, a culture has also been drawn from the port, continue Zosyn for now. 2. Metastatic adenocarcinoma of Vater. Status post Whipple's procedure, currently receiving Abraxane and gemcitabine in the outpatient setting. 3. Hypertension. Continue Coreg 4. Anemia. Studies consistent with anemia of chronic disease, H/H stable. DVT prophylaxis: Heparin SubQ GI prophylaxis: Home PPI VS, I&O, 24H, Fishbone Vital Signs/I&O Vital Signs Date Time Temp Pulse Resp B/P (MAP) Pulse Ox O2 Delivery O2 Flow Rate FiO2 09/26/19 08:59 81 124/61 09/26/19 08:00 97 Room Air 09/26/19 06:00 99.6 17 09/25/19 04:00 0.0 09/24/19 20:00 98 I&O- Last 24 Hours up to 6 AM 09/26/19 06:00 Intake Total 1455 ml Output Total 225 ml Balance 1230 ml Laboratory Data 24H LABS Laboratory Tests 2 09/26/19 07:11: Immature Granulocyte % (Auto) 1.3, Neutrophils (%) (Auto) 57.8, Lymphocytes (%) (Auto) 12.7L, Monocytes (%) (Auto) 25.4H, Eosinophils (%) (Auto) 2.7, Basophils (%) (Auto) 0.1, Neutrophils # (Auto) 4.0, Lymphocytes # (Auto) 0.9L, Monocytes # (Auto) 1.8H, Eosinophils # (Auto) 0.2, Basophils # (Auto) 0.0, Nucleated Red Blood Cells % (auto) 0.0, Anion Gap 5L, Glomerular Filtration Rate > 60.0, Calcium Level 8.4L CBC/BMP Laboratory Tests 09/26/19 07:11 Microbiology Microbiology 09/25/19 Blood Culture, Received Pending 09/25/19 Blood Culture, Received Pending 09/24/19 Blood Culture - Preliminary, Resulted No growth after 24 hours . All specim... 09/24/19 Blood Culture - Preliminary, Resulted No growth after 24 hours . All specim... 09/24/19 Respiratory Virus Panel (PCR) (CINDY) - Final, Complete 09/24/19 Coronavirus COVID-19 PCR (CINDY) - Final, Complete ANG GUZMAN MD Sep 26, 2019 09:30
[2019-09-26] MEDS: SODIUM CHLORIDE 0.9% INJ 10 ML SYR IV SCH (10:20)
[2019-09-27 00:08] VITALS: O2SAT 98
[2019-09-27] MEDS: PIPERACILLIN/TAZOBACTAM SOD 3.375 GM in D5W MINI-BAG PLUS 50 ML IV SCH ×2 (02:49→08:32)
[2019-09-27 04:10] VITALS: O2SAT 97
[2019-09-27] MEDS: SODIUM CHLORIDE 0.9% INJ 10 ML SYR IV PRN (04:44)
[2019-09-27] MEDS: HEPARIN SOD (PORCINE) 5000UNITS/ML VIAL (J1644 PER 1000UNITS) SC SCH (05:14)
[2019-09-27 06:00] VITALS: BP 137/73
[2019-09-27 06:28] LABS: BASO % 0.4 % (0.0-1.0); EOS # 0.4 10^3/uL (0.0-0.5); HEMATOCRIT 26.9 % (36.0-47.0); LYMPH # 0.8 10^3/uL (1.5-5.0); LYMPH % 15.6 % (24.0-44.0); MEAN CORPUSCULAR HGB CONC 29.7 g/dl (32.0-36.5); MEAN CORPUSCULAR VOLUME 84.1 fl (80.0-96.0); MONO # 1.4 10^3/uL (0.0-0.8); MONO % 26.9 % (0.0-5.0); NEUTROPHILS # 2.5 10^3/uL (1.5-8.5); NEUTROPHILS % 48.3 % (36.0-66.0); PLATELET COUNT, AUTOMATED 276 10^3/uL (150-450); WHITE BLOOD COUNT 5.1 10^3/uL (4.0-10.0)
[2019-09-27 06:51] LABS: BLOOD UREA NITROGEN 12 MG/DL (7-18); CALCIUM LEVEL 7.9 MG/DL (8.8-10.2); CARBON DIOXIDE LEVEL 28 MEQ/L (21-32); CHLORIDE LEVEL 106 MEQ/L (98-107); CREATININE FOR GFR 0.81 MG/DL (0.55-1.30); GLOMERULAR FILTRATION RATE > 60.0 (>32); GLUCOSE, FASTING 108 MG/DL (70-100); POTASSIUM SERUM 4.9 MEQ/L (3.5-5.1); SODIUM LEVEL 140 MEQ/L (136-145)
[2019-09-27 08:00] VITALS: O2SAT 98
[2019-09-27 08:31] VITALS: BP 142/71
[2019-09-27] MEDS: CARVedilol 12.5 MG TAB PO SCH (08:31)
[2019-09-27] MEDS: ASPIRIN 81 MG CHEW TABLET PO SCH (08:32)
[2019-09-27] MEDS: methocarbamoL 500 MG TAB PO SCH (08:32)
[2019-09-27] MEDS: PANTOPRAZOLE 40MG TAB (PROTONIX) PO SCH (08:32)
[2019-09-27] MEDS: FERROUS SULFATE 325MG TAB PO SCH (08:32)
[2019-09-27] MEDS: SODIUM CHLORIDE 0.9% INJ 10 ML SYR IV SCH (08:33)
[2019-09-27] MEDS ORDERED: CEFT1INJ5 IV (10:40)
[2019-09-27] MEDS ORDERED: cefTRIAXone SOD 2 GM in D5W MINI-BAG PLUS 50 ML IV ONE (11:00)
[2019-09-27 12:00] VITALS: O2SAT 98
--- NOTE | 2019-09-27 17:49 | DS.PDOC ---
Discharge Summary General Date of Admission Sep 24, 2019 at 23:48 Date of Discharge 09/26/19 Attending Physician: ANG GUZMAN MD Discharge Summary PROCEDURES PERFORMED DURING STAY: None. ADMITTING DIAGNOSES: 1. Bacteremia. DISCHARGE DIAGNOSES: 1. Bacteremia. COMPLICATIONS/CHIEF COMPLAINT: Bacteremia. HISTORY OF PRESENT ILLNESS: 84-year-old female who was recently admitted for Escherichia coli bacteremia and discharged on oral antibiotics, was readmitted for fever. Patient was clinically stable, no signs of systemic infection, labs are also suggesting improvement in infection and good response to antibiotics as per calcitonin has trended down. Patient had repeat cultures drawn including a set from the port, which have all been negative for at least 48 hours. Patient has remained unchanged clinically, comfortable, wishing to go home. Patient will be discharged and will receive daily infusions of ceftriaxone to complete her antibiotic course for bacteremia. Patient is hemodynamically stable for discharge and outpatient follow-up with PCP in 1-2 weeks. HOSPITAL COURSE: As above. DISCHARGE MEDICATIONS: Please see below. ALLERGIES: Please see below. PHYSICAL EXAMINATION: VITAL SIGNS: Please see below. GENERAL: No distress HEENT: Normocephalic, atraumatic, moist mucous membranes NECK: Supple CARDIOVASCULAR EXAMINATION: S1, S2, no murmurs RESPIRATORY EXAMINATION: Clear to auscultation, no wheezing ABDOMINAL EXAMINATION: Soft, nontender, nondistended, positive bowel sounds EXTREMITIES: Range of motion intact SKIN: No rash NEUROLOGICAL EXAMINATION: no focal deficits PSYCHIATRIC EXAMINATION: Calm and cooperative LABORATORY DATA: Please see below. PROGNOSIS: Fair ACTIVITY: As tolerated. DIET: Cardiac DISCHARGE PLAN: Follow with PCP in 1-2 weeks DISPOSITION: 01 Home, Self-Care. DISCHARGE INSTRUCTIONS: 1. As above. DISCHARGE CONDITION: Stable. TIME SPENT ON DISCHARGE: Greater than 31 minutes. Vital Signs/I&Os Vital Signs Date Time Temp Pulse Resp B/P (MAP) Pulse Ox O2 Delivery O2 Flow Rate FiO2 09/27/19 12:00 98 Room Air 09/27/19 08:31 78 142/71 09/27/19 06:00 98.6 17 09/25/19 04:00 0.0 09/24/19 20:00 98 I&O- Last 24 Hours up to 6 AM 09/27/19 06:00 Intake Total 1900 ml Balance 1900 ml Laboratory Data Labs 24H Laboratory Tests 2 09/27/19 05:08: Immature Granulocyte % (Auto) 1.8, Neutrophils (%) (Auto) 48.3, Lymphocytes (%) (Auto) 15.6L, Monocytes (%) (Auto) 26.9H, Eosinophils (%) (Auto) 7.0H, Basophils (%) (Auto) 0.4, Neutrophils # (Auto) 2.5, Lymphocytes # (Auto) 0.8L, Monocytes # (Auto) 1.4H, Eosinophils # (Auto) 0.4, Basophils # (Auto) 0.0, Nucleated Red Blood Cells % (auto) 0.0, Anion Gap 6L, Glomerular Filtration Rate > 60.0, Calcium Level 7.9L CBC/BMP Laboratory Tests 09/27/19 05:08 Microbiology Microbiology 09/25/19 Blood Culture - Preliminary, Resulted No Growth after 48 hours. All Specime... 09/25/19 Blood Culture - Preliminary, Resulted No Growth after 48 hours. All Specime... 09/24/19 Blood Culture - Preliminary, Resulted No Growth after 48 hours. All Specime... 09/24/19 Blood Culture - Preliminary, Resulted No Growth after 48 hours. All Specime... 09/24/19 Respiratory Virus Panel (PCR) (CINDY) - Final, Complete 09/24/19 Coronavirus COVID-19 PCR (CINDY) - Final, Complete Discharge Medications Scheduled Aspirin (Aspirin) 81 Mg Tab.chew, 81 MG PO DAILY, (Reported) Calcium Carbonate (Calcium) 600 Mg Tablet, 600 MG PO DAILY, (Reported) Carvedilol (Carvedilol) 12.5 Mg Tablet, 12.5 MG PO BID, (Reported) Ceftriaxone Sodium (Ceftriaxone) 1 Gm Vial, 1 GRAM IV DAILY Cholecalciferol (Vitamin D3) (Vitamin D3) 1,000 Unit Tablet, 1,000 UNITS PO DAILY, (Reported) Ferrous Sulfate (Ferrous Sulfate) 325 Mg Tablet.dr, 325 MG PO BID, (Reported) Multivitamins (Thera M Plus Tablet) 1 Each Tablet, 1 TAB PO DAILY, (Reported) Pantoprazole Sodium (Pantoprazole Sodium) 40 Mg Tablet.dr, 40 MG PO BID, (Reported) Scheduled PRN Hydrocodone/Acetaminophen (Hydrocodone-Acetamin 5-325 mg) 1 Each Tablet, 1 TAB PO Q8H PRN for PAIN, (Reported) Tizanidine HCl (Tizanidine HCl) 2 Mg Tablet, 2 MG PO TID PRN for MUSCLE SPASMS, (Reported) Allergies Coded Allergies: latex (Verified Allergy, Mild, itching, 09/24/19) tetracycline (Verified Adverse Reaction, Intermediate, mouth sores, 09/24/19) ANG GUZMAN MD Sep 27, 2019 17:49
== END 2019-09-27 13:07 | disposition home health service (06) | DRG 872 ==
LOC: M ED 19:14 → M ED INP 23:48 → ENRESERVDT 09-25 00:25 → ENRESERVTM 09-25 00:25 → ENRESERVDT 09-25 00:48 → ENRESERVTM 09-25 00:48 → M ICU 09-25 01:27 → M MSPAV 09-25 10:28
PROVIDERS: ADMIT General Practice; ATTEND Internal Medicine
DX: R78.81 Bacteremia (principal); C24.1 Malignant neoplasm of ampulla of Vater; C78.00 Secondary malignant neoplasm of unspecified lung; Z79.82 Long term (current) use of aspirin; Z79.899 Other long term (current) drug therapy; Z91.040 Latex allergy status; Z88.8 Allergy status to other drugs, medicaments and biological substances; D50.9 Iron deficiency anemia, unspecified; I10 Essential (primary) hypertension; Z92.21 Personal history of antineoplastic chemotherapy

== ENCOUNTER → 2019-10-05 | Outpatient (REF) | payer MEDICARE, MEDICAID ==
[~2019-10-05] MED LIST changes: +CEFD1CAP8 PO; +CEFT1INJ5 IV; +FERR325T3 PO
[2019-10-05 11:08] LABS: BASO # 0.1 10^3/uL (0.0-0.2); BASO % 1.5 % (0.0-1.0); EOS # 0.4 10^3/uL (0.0-0.5); EOS % 8.5 % (0.0-3.0); HEMATOCRIT 29.1 % (36.0-47.0); HEMOGLOBIN 8.5 g/dl (12.0-15.5); LYMPH # 0.9 10^3/uL (1.5-5.0); LYMPH % 18.5 % (24.0-44.0); MEAN CORPUSCULAR HEMOGLOBIN 25.1 pg (27.0-33.0); MEAN CORPUSCULAR HGB CONC 29.2 g/dl (32.0-36.5); MEAN CORPUSCULAR VOLUME 86.1 fl (80.0-96.0); MONO % 20.4 % (0.0-5.0); NEUTROPHILS # 2.4 10^3/uL (1.5-8.5); NEUTROPHILS % 50.5 % (36.0-66.0); PLATELET COUNT, AUTOMATED 467 10^3/uL (150-450); RED BLOOD COUNT 3.38 10^6/uL (4.00-5.40); WHITE BLOOD COUNT 4.8 10^3/uL (4.0-10.0)
[2019-10-05 11:10] LABS: BLOOD UREA NITROGEN 21 MG/DL (7-18); CALCIUM LEVEL 8.6 MG/DL (8.8-10.2); CARBON DIOXIDE LEVEL 27 MEQ/L (21-32); CHLORIDE LEVEL 108 MEQ/L (98-107); CREATININE FOR GFR 0.72 MG/DL (0.55-1.30); GLOMERULAR FILTRATION RATE > 60.0 (>32); GLUCOSE, FASTING 123 MG/DL (70-100); POTASSIUM SERUM 4.7 MEQ/L (3.5-5.1); SODIUM LEVEL 142 MEQ/L (136-145)
== END ==
LOC: M LABDRWAD 10:40
PROVIDERS: ATTEND Family Medicine
DX: R78.81 Bacteremia (principal); N18.3 Chronic kidney disease, stage 3 (moderate)

== ENCOUNTER → 2019-10-07 | Outpatient (REF) | payer MEDICARE, MEDICAID ==
[2019-10-07 10:52] LABS: APPEARANCE, URINE CLEAR (CLEAR); BACTERIA, URINE AUTO NEGATIVE (NEGATIVE); BILIRUBIN, URINE AUTO NEGATIVE (NEGATIVE); BLOOD, URINE BLOOD NEGATIVE (NEGATIVE); COLOR, URINE STRAW (YELLOW); GLUCOSE, URINE (UA) AUTO NEGATIVE (NEGATIVE); KETONE, URINE AUTO NEGATIVE (NEGATIVE); LEUKOCYTE ESTERASE, URINE AUTO NEGATIVE (NEGATIVE); MUCUS, URINE SMALL (NEGATIVE); NITRITE, URINE AUTO NEGATIVE (NEGATIVE); PROTEIN, URINE AUTO NEGATIVE (NEGATIVE); RBC, URINE AUTO 0 /HPF (0-3); SPECIFIC GRAVITY URINE AUTO 1.011 (1.002-1.035); SQUAMOUS EPITHELIAL CELL UR AU 0 /HPF (0-6); UROBILINOGEN, URINE AUTO 0.2 mg/dL (0.0-2.0); WBC, URINE AUTO 0 /HPF (0-3)
== END ==
LOC: M LAB REF 10:24
PROVIDERS: ATTEND Family Medicine
DX: R78.81 Bacteremia (principal); B96.20 Unspecified Escherichia coli [E. coli] as the cause of diseases classified elsewhere

== ENCOUNTER 2019-10-13 13:18 | Inpatient (IN) | payer MEDICARE, MEDICAID ==
[~2019-10-13] VITALS: Ht 157.5 cm; Wt 47.4 kg
[2019-10-13] MEDS ORDERED: PIPERACILLIN/TAZOBACTAM SOD 4.5 GM in D5W MINI-BAG PLUS 50 ML IV ONE (13:45)
[2019-10-13] MEDS ORDERED: ACETAMINOPHEN 325 MG TAB PO ONE (13:45)
[2019-10-13] MEDS ORDERED: NS 1,400 ML in IV 1 EA IV ONE (13:45)
[2019-10-13 14:04] LABS: ABG BASE EXCESS 2.3 (-2.0-2.0); ABG HCO3 24.7 MEQ/L (22.0-26.0); ABG O2 SATURATION 99.1 % (95.0-99.0); ABG PARTIAL PRESSURE CO2 30.8 mmHg (35.0-45.0); ABG STANDARD HCO3 26.6 MEQ/L (22.0-26.0); ABG TOTAL CO2 25.6 MEQ/L (23.0-31.0); ABG pH (ARTERIAL) 7.522 UNITS (7.350-7.450)
[2019-10-13 14:08] LABS: BASO # 0.1 10^3/uL (0.0-0.2); BASO % 0.3 % (0.0-1.0); HEMATOCRIT 34.3 % (36.0-47.0); HEMOGLOBIN 10.4 g/dl (12.0-15.5); LYMPH # 0.3 10^3/uL (1.5-5.0); LYMPH % 1.4 % (24.0-44.0); MEAN CORPUSCULAR HEMOGLOBIN 24.7 pg (27.0-33.0); MEAN CORPUSCULAR HGB CONC 30.3 g/dl (32.0-36.5); MEAN CORPUSCULAR VOLUME 81.5 fl (80.0-96.0); MONO # 1.1 10^3/uL (0.0-0.8); NEUTROPHILS # 16.9 10^3/uL (1.5-8.5); NEUTROPHILS % 91.5 % (36.0-66.0); PLATELET COUNT, AUTOMATED 469 10^3/uL (150-450); RED BLOOD COUNT 4.21 10^6/uL (4.00-5.40); WHITE BLOOD COUNT 18.5 10^3/uL (4.0-10.0)
[2019-10-13 14:19] LABS: INR 1.18; PROTHROMBIN TIME 14.8 SECONDS (11.8-14.0)
[2019-10-13 14:20] LABS: PARTIAL THROMBOPLASTIN TIME 29.9 SECONDS (25.0-38.4)
--- NOTE | 2019-10-13 14:34 | REP ---
Clinical: Sepsis. Shock. Comparison: 09/24/2019. Findings: Mediastinum and cardiac silhouette are stable with [id number] again identified in the SVC. The lung fitzgerald demonstrate diffuse chronic interstitial changes along with scattered stable rounded nodules. Small/moderate right pleural effusion and right lower lobe passive atelectasis appears slightly improved compared to prior examination. No pneumothorax. Skeletal structures intact/stable. Impression: 1. Small/moderate right pleural effusion and right lower lobe passive atelectasis again noted but mildly improved. 2. Scattered round lesions most compatible with metastatic disease similar to prior examination. Electronically Signed by Abdirashid Galvan MD 10/13/2019 02:25 P
[2019-10-13 14:35] LABS: ALBUMIN 3.2 GM/DL (3.2-5.2); ALT/SGPT 44 U/L (12-78); AMYLASE 17 U/L (25-115); BILIRUBIN,DIRECT 0.4 MG/DL (0.0-0.2); BILIRUBIN,TOTAL 1.6 MG/DL (0.2-1.0); BLOOD UREA NITROGEN 19 MG/DL (7-18); C REACTIVE PROTEIN QUANTITATIV 1.76 MG/DL (0.00-0.30); CALCIUM LEVEL 8.2 MG/DL (8.8-10.2); CARBON DIOXIDE LEVEL 26 MEQ/L (21-32); CHLORIDE LEVEL 103 MEQ/L (98-107); CK-MB VALUE MASS < 1.0 NG/ML (<3.6); CPK CREATINE PHOSPHOKINASE 30 U/L (26-192); CREATININE FOR GFR 0.72 MG/DL (0.55-1.30); FERRITIN 140 NG/ML (8-252); GLOMERULAR FILTRATION RATE > 60.0 (>32); GLUCOSE, FASTING 129 MG/DL (70-100); LDH LACTATE DEHYDROGENASE 211 U/L (84-246); MB/CK RELATIVE INDEX 3.33 (< OR =4); POTASSIUM SERUM 3.5 MEQ/L (3.5-5.1); SODIUM LEVEL 139 MEQ/L (136-145); TOTAL PROTEIN 7.1 GM/DL (6.4-8.2); TROPONIN I 0.02 NG/ML (< 0.10)
[2019-10-13 14:39] LABS: INFLUENZA A AMPLIFICATION NEGATIVE (NEGATIVE); INFLUENZA B AMPLIFICATION NEGATIVE (NEGATIVE)
[2019-10-13 14:45] LABS: D-DIMER QUANT > 4000.00 ng/ml (<500)
[2019-10-13 14:50] LABS: NT-PRO BNP 2197 PG/ML (<450)
[2019-10-13] MEDS ORDERED: LIDOCAINE 2% 5ML JELLY UROJET TOP ONE (15:00)
[2019-10-13] MEDS ORDERED: IBUPROFEN 600 MG TAB PO ONE (15:30)
--- NOTE | 2019-10-13 16:17 | REP ---
Clinical: Pleural effusion. Technique: Axial noncontrast images from the thoracic inlet to the upper abdomen with coronal and sagittal re-formations. Comparison: 09/24/2019, 06/17/2019. Findings: Lung fitzgerald demonstrate multiple bilateral metastatic lesions measuring up to greater than 2.4 cm maximal diameter which have increased in size and number as compared to 06/17/2019. Associated increased interstitial markings noted throughout the bilateral lung fitzgerald raising the possibility of associated lymphangitic carcinomatosis. Right-sided pleural thickening and small subpulmonic pleural effusion along with small subdiaphragmatic/perihepatic fluid is again noted and essentially unchanged as compared to 09/24/2019. Mediastinal adenopathy is again suggested and similar to prior examination although incompletely evaluated due to the lack of intravenous contrast enhancement. Tracheobronchial tree is patent. Thoracic aorta, pulmonary vasculature and heart/pericardium are stable. No aortic aneurysm. No significant pericardial effusion. Impression: 1. Diffuse metastatic disease with lesions measuring up to approximately 2.4 cm maximal diameter and suggestions for lymphangitic carcinomatosis. 2. Small right subpulmonic pleural effusion and small amount of subdiaphragmatic perihepatic ascites along with irregular pleural thickening at the right lung base. These findings are essentially unchanged compared to 09/24/2019. Electronically Signed by Abdirashid Galvan MD 10/13/2019 04:09 P
[2019-10-13] MEDS ORDERED: VANCOMYCIN HCL 1,000 MG, VIAL MATE ADAPTER 1 EACH in D5W 250 ML IV SCH (16:30)
--- NOTE | 2019-10-13 16:34 | HPEPDOC ---
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 Patient has been hospitalized twice for recurrent fevers, initial hospitalization showed Escherichia coli bacteremia, follow-up hospitalization had negative blood cultures. Patient has been treated with a prolonged course of antibiotics for the Escherichia coli bacteremia, currently confused in the emergency department, unsure why and how she ended up here. Patient showed similar confusion during h er previous hospitalizations due to the fever infection. Patient has no complaints at this time, only change she has noticed is sneezing for the past 2 days. In the ER. She is found to have a fever of 101.7, no obvious source of infection at this time. She denies any shortness of breath, chest pain, nausea, vomiting, no pain, diarrhea or constipation. 10 point review of system is negative except for above PAST MEDICAL HISTORY: 1. Adenocarcinoma of the ampulla of vater with metastatic disease to the lung. 2. Iron deficiency anemia. 3. Hypertension. PAST SURGICAL HISTORY: 1. Whipple's procedure. 2. Cholecystectomy. 3. Tubal ligation. SOCIAL HISTORY: Denies smoking. Denies all used. Denies drug use FAMILY HISTORY: Positive for lung cancer ALLERGIES: Please see below. HOME MEDICATIONS: Please see below. PHYSICAL EXAMINATION: VITAL SIGNS: Please see below. GENERAL: Frail HEENT: Normocephalic, atraumatic, moist mucous membranes NECK: Supple CARDIOVASCULAR EXAMINATION: S1, S2, tachycardic RESPIRATORY EXAMINATION: Scattered rhonchi, diminished in the right lower lobe, no wheezing ABDOMINAL EXAMINATION: Soft, nontender, nondistended, positive bowel sounds EXTREMITIES: Range of motion intact SKIN: No rash NEUROLOGICAL EXAMINATION: no focal deficits PSYCHIATRIC EXAMINATION: Calm and cooperative LABORATORY DATA: See below. IMAGING: Chest CT showing diffuse metastatic disease with small right pleural effusion and pleural thickening, unchanged from previous admission. MICROBIOLOGY: Please see below. ASSESSMENT: 84-year-old female with multiple medical comorbidities with 2 recent hospitalizations for fever/Escherichia coli bacteremia is being readmitted for fever. PLAN: 1. Fever. Unknown etiology, possible infectious versus malignancy, repeat blood cultures pending, empiric antibiotics, will discuss case with oncology and infectious disease tomorrow regarding further workup. 2. Hypertension. Continue Coreg. 3. Anemia. Continue iron supplementation DVT prophylaxis: Lovenox. GI prophylaxis: Home PPI Vital Signs Vital Signs Date Time Temp Pulse Resp B/P (MAP) Pulse Ox O2 Delivery O2 Flow Rate FiO2 10/13/19 15:18 99 22 97 10/13/19 15:15 167/90 (115) 10/13/19 13:39 Room Air 10/13/19 13:30 101.7 Laboratory Data Labs 24H Laboratory Tests 2 10/13/19 13:52: Immature Granulocyte % (Auto) 0.8, Neutrophils (%) (Auto) 91.5H, Lymphocytes (%) (Auto) 1.4L, Monocytes (%) (Auto) 6.0H, Eosinophils (%) (Auto) 0.0, Basophils (%) (Auto) 0.3, Neutrophils # (Auto) 16.9H, Lymphocytes # (Auto) 0.3L, Monocytes # (Auto) 1.1H, Eosinophils # (Auto) 0.0, Basophils # (Auto) 0.1, Nucleated Red Blood Cells % (auto) 0.0, Prothrombin Time 14.8H, Prothromb Time International Ratio 1.18, Activated Partial Thromboplast Time 29.9, D-Dimer, Quantitative > 4000.00H, Anion Gap 10, Glomerular Filtration Rate > 60.0, Lactic Acid Level 1.3, Calcium Level 8.2L, Ferritin 140, Total Bilirubin 1.6H, Direct Bilirubin 0.4H, Aspartate Amino Transf (AST/SGOT) 70H, Alanine Aminotransferase (ALT/SGPT) 44, Alkaline Phosphatase 267H, Lactate Dehydrogenase 211, Total Creatine Kinase 30, Creatine Kinase MB < 1.0, Creatine Kinase MB Relative Index 3.33, Troponin I 0.02, C-Reactive Protein, Quantitative 1.76H, OP-Hec-K-Type Natriuretic Peptide 2197H, Total Protein 7.1, Albumin 3.2, Albumin/Globulin Ratio 0.82L, Amylase Level 17L, Coronavirus (COVID-19)(PCR) NEGATIVE, Influenza Type A (RT-PCR) NEGATIVE, Influenza Type B (RT-PCR) NEGATIVE 10/13/19 13:53: Blood Gas Bicarbonate Standard 26.6H, Arterial Blood pH 7.522H, Arterial Blood Partial Pressure CO2 30.8L, Arterial Blood Partial Pressure O2 131.0H, Arterial Blood Total CO2 25.6, Arterial Blood HCO3 24.7, Arterial Blood Base Excess 2.3H, Arterial Blood Oxygen Saturation 99.1H 10/13/19 15:11: Urine Color YELLOW, Urine Appearance CLEAR, Urine pH 6.0, Urine Specific [place] 1.014, Urine Protein 2+H, Urine Glucose (UA) NEGATIVE, Urine Ketones 1+H, Urine Blood NEGATIVE, Urine Nitrite NEGATIVE, Urine Bilirubin NEGATIVE, Urine Urobilinogen 0.2, Urine Leukocyte Esterase NEGATIVE, Urine WBC (Auto) 1, Urine RBC (Auto) 10H, Urine Hyaline Casts (Auto) 0, Urine Bacteria (Auto) NEGATIVE, Urine Squamous Epithelial Cells 0, Urine Mucus (Auto) SMALL, Urine Sperm (Auto) CBC/BMP Laboratory Tests 10/13/19 13:52 Microbiology Microbiology 10/13/19 Blood Culture, Received Pending 10/13/19 Respiratory Virus Panel (PCR) (CINDY) - Final, Complete 10/13/19 Blood Culture, Received Pending Home Medications Scheduled Aspirin (Aspirin) 81 Mg Tab.chew, 81 MG PO DAILY Calcium Carbonate (Calcium) 600 Mg Tablet, 600 MG PO DAILY Carvedilol (Carvedilol) 12.5 Mg Tablet, 12.5 MG PO BID Cholecalciferol (Vitamin D3) (Vitamin D3) 1,000 Unit Tablet, 1,000 UNITS PO DAILY Ferrous Sulfate (Ferrous Sulfate) 325 Mg Tablet.dr, 325 MG PO BID Multivitamins (Thera M Plus Tablet) 1 Each Tablet, 1 TAB PO DAILY Pantoprazole Sodium (Pantoprazole Sodium) 40 Mg Tablet.dr, 40 MG PO BID Scheduled PRN Tizanidine HCl (Tizanidine HCl) 2 Mg Tablet, 2 MG PO TID PRN for MUSCLE SPASMS Allergies Coded Allergies: latex (Verified Allergy, Mild, itching, 09/24/19) tetracycline (Verified Adverse Reaction, Intermediate, mouth sores, 09/24/19) A-FIB/CHADSVASC A-FIB History Current/History of A-Fib/PAF?: No ANG GUZMAN MD October 13, 2019 16:34
[2019-10-13 18:00] VITALS: BP 122/68
[2019-10-13] MEDS ORDERED: VANCOMYCIN HCL 1,000 MG, VIAL MATE ADAPTER 1 EACH in D5W 250 ML IV ONE (18:00)
--- NOTE | 2019-10-13 19:27 | ECGEPIP ---
[facility] - ED Test Date: 2019-10-13 Pat Name: STANLEY JACKSON Department: Room: - Gender: Female Cabbage Salter: marguerite : 1935 Requested By: Gena Felix Order Number: [id number] Reading MD: Gena Felix Measurements Intervals [place] Rate: 110 P: 52 SC: 127 QRS: -14 QRSD: 76 T: 4 QT: 322 QTc: 437 Interpretive Statements SINUS TACHYCARDIA LEFTWARD AXIS POSSIBLE LEFT ATRIAL ENLARGEMENT NONSPECIFIC ST & T-WAVE ABNORMALITY ABNORMAL RHYTHM ECG DELAYED R WAVE PROGRESSION BASELINE ARTIFACT MAY AFFECT READING BASELINE WANDERING MAY AFFECT READING CW 09/24/[address] T WAVE CHANGES Electronically Signed on 10-13-2019 19:27:04 EDT by Gena Felix
[2019-10-13 20:30] VITALS: BP 106/62
[2019-10-13] MEDS: PIPERACILLIN/TAZOBACTAM SOD 3.375 GM in D5W MINI-BAG PLUS 50 ML IV SCH (21:18)
[2019-10-13] MEDS: ENOXAPARIN 40MG/0.4ML SYRINGE (J1650 PER 10MG) SC SCH (21:18)
[2019-10-13] MEDS: PANTOPRAZOLE 40MG TAB (PROTONIX) PO SCH (21:18)
[2019-10-13] MEDS: FERROUS SULFATE 325MG TAB PO SCH (21:18)
[2019-10-14] MEDS ORDERED: ONDANSETRON 4 MG TAB PO PRN (00:30)
--- NOTE | 2019-10-14 01:25 | PHACANCOPD ---
PHARMACY VANCOMYCIN DOSING Pt Demographics Demographics Patient Age:84 , Weight:46.800 , Gender: female Adjusted Body Weight Date: 10/14/19, Adjusted Body Weight: [46.8] Kg(ACTUAL WT) Events Past 24 Hours Events Past 24 Hours: YES: Fever Vancomycin Vancomycin indication: FEBRILE ILLNESS(EMPIRIC) Vancomycin Target Ranges: 15-20 mcg/ml Vancomycin Load Y/N: Yes Load Dose Date Time Vancomycin Load Dose: 1GM Date: 10/12 Time: 18:30 Vancomycin Dose Date: 10/14/19. Current Vancomycin Dose: [750MG Q24H] Intermittent Dosing?: No Labs Micro Microbiology 10/13/19 Blood Culture, Received Pending 10/13/19 Respiratory Virus Panel (PCR) (CINDY) - Final, Complete 10/13/19 Blood Culture, Received Pending Creatinine Clearance Date:10/14/19. Creatinine Clearance: [31.4].(CALCULATED) Assessment and Plan Maintaining Current Dose?: Yes Reason for dose change: No Dose Change Pharmacist Note Pharmacist Note Date: 10/14/19. Pharmacist note:84 YOF Admitted for empiric tx of febrile ilness. ht:62",wt:46.8kg.,SCR=0.72,CRCL=31.4-calculated,MRSA PCR pending. ABX regimen includes Pip/Tazo 3.375 gm IV [id number] and Pharmacy dosed Vancomycin. Vancomycin 1 gram administered 10/12@18:30, then will begin regimen of 750mg IV [id number] on 10/13@0600. First Vanco trough is scheduled for 10/14@0500-prior to the 3rd dose. [facility] October 14, 2019 01:25
[2019-10-14] MEDS: PIPERACILLIN/TAZOBACTAM SOD 3.375 GM in D5W MINI-BAG PLUS 50 ML IV SCH ×4 (04:40→21:03)
[2019-10-14] MEDS: CALCIUM CARBONATE 500 MG CHEW U/D PO PRN (05:16)
[2019-10-14] MEDS: VANCOMYCIN HCL 750 MG, VIAL MATE ADAPTER 1 EACH in D5W 250 ML IV SCH (05:57)
[2019-10-14 06:00] VITALS: BP 112/65
[2019-10-14 06:30] LABS: HEMATOCRIT 29.5 % (36.0-47.0); MEAN CORPUSCULAR HEMOGLOBIN 25.3 pg (27.0-33.0); MEAN CORPUSCULAR HGB CONC 30.5 g/dl (32.0-36.5); MEAN CORPUSCULAR VOLUME 82.9 fl (80.0-96.0); RED BLOOD COUNT 3.56 10^6/uL (4.00-5.40); WHITE BLOOD COUNT 14.4 10^3/uL (4.0-10.0)
[2019-10-14 06:38] LABS: PLATELET COUNT, AUTOMATED 324 10^3/uL (150-450)
[2019-10-14 07:05] LABS: ALBUMIN 2.5 GM/DL (3.2-5.2); BILIRUBIN,TOTAL 1.4 MG/DL (0.2-1.0); CALCIUM LEVEL 7.8 MG/DL (8.8-10.2); CREATININE FOR GFR 1.03 MG/DL (0.55-1.30); GLOMERULAR FILTRATION RATE 54.5 (>32); MAGNESIUM LEVEL 1.8 MG/DL (1.8-2.4); POTASSIUM SERUM 3.3 MEQ/L (3.5-5.1); TOTAL PROTEIN 6.3 GM/DL (6.4-8.2)
[2019-10-14] MEDS ORDERED: POTASSIUM CHLORIDE 10 MEQ SR TABLET PO ONE ×2 (08:00→10:00)
[2019-10-14] MEDS: MULTIVITAMINS/MINERALS THERAP 1 TAB PO SCH (08:59)
[2019-10-14] MEDS: VITAMIN D 1,000 INTERNATIONAL UNITS TABLET PO SCH (08:59)
[2019-10-14] MEDS: FERROUS SULFATE 325MG TAB PO SCH ×2 (08:59→21:01)
[2019-10-14] MEDS: ASPIRIN 81 MG CHEW TABLET PO SCH (08:59)
[2019-10-14] MEDS: PANTOPRAZOLE 40MG TAB (PROTONIX) PO SCH ×2 (08:59→21:02)
[2019-10-14] MEDS: CARVedilol 12.5 MG TAB PO SCH ×2 (09:11→21:02)
[2019-10-14] MEDS: ACETAMINOPHEN TAB 650MG DOSE (2X325MG) PO PRN (09:11)
[2019-10-14 14:00] VITALS: BP 106/57
--- NOTE | 2019-10-14 14:07 | IPNPDOC ---
Text Note Date of Service The patient was seen on 10/14/19. 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 She states she is feeling well this morning. She has some soreness in her left shoulder which responded to tylenol. She denies fevers, chills, night sweats, or confusion. PHYSICAL EXAMINATION: VITAL SIGNS: Please see below. GENERAL: Frail HEENT: Normocephalic, atraumatic, moist mucous membranes NECK: Supple CARDIOVASCULAR: RRR, normal S1 and S2 RESPIRATORY: Scattered rhonchi, diminished in the right lower lobe, no wheezing ABDOMIN: Soft, nontender, nondistended, positive bowel sounds EXTREMITIES: no edema or cyanosis SKIN: No rash NEURO: no focal deficits appreciated PSYCH: Mood and affect appropriate ASSESSMENT: 84-year-old female with multiple medical comorbidities with 2 recent hospitalizations for fever/Escherichia coli bacteremia is being readmitted for fever. PLAN: 1. Fever. Unknown etiology, possible infectious versus malignancy, repeat blood cultures pending, empiric antibiotics - Case discussed with oncology, who does not think this is related to her cancer or cancer treatments 2. Hypertension. Continue Coreg. 3. Anemia. Continue iron supplementation 4. Hx of Adenocarcinoma of the ampulla of vater s/p Whipple procedure and chemotherapy with metastasis to the lungs DVT prophylaxis: Lovenox. Disposition: pending further work up of fever Attending attestation: I evaluated and examined the patient in person; I discussed the care with Resident in detail and agree with the plan above. VS,Cristhiane, I+O VS, Cristhiane, I+O Laboratory Tests 10/14/19 06:16 Vital Signs Date Time Temp Pulse Resp B/P (MAP) Pulse Ox O2 Delivery O2 Flow Rate FiO2 10/14/19 09:11 78 115/58 10/14/19 06:00 97.9 18 94 Room Air I&O- Last 24 Hours up to 6 AM 10/14/19 06:00 Intake Total 1500 ml Output Total 700 ml Balance 800 ml MAHNAZ BOND D.O. October 14, 2019 14:07 ANG GUZMAN MD October 15, 2019 19:53
[2019-10-14 14:33] LABS: C REACTIVE PROTEIN QUANTITATIV 8.62 MG/DL (0.00-0.30)
[2019-10-14 15:00] LABS: ERYTHROCYTE SEDIMENTATION RATE 36 mm/hr (0-30)
[2019-10-14 18:07] LABS: TOTAL PROTEIN 5.9 GM/DL (6.4-8.2)
[2019-10-14 18:54] LABS: HIV 1&2 SCREEN CENTAUR NEGATIVE (NEGATIVE)
[2019-10-14] MEDS: ENOXAPARIN 40MG/0.4ML SYRINGE (J1650 PER 10MG) SC SCH (21:02)
[2019-10-14 22:00] VITALS: BP 122/67
[2019-10-15] MEDS: PIPERACILLIN/TAZOBACTAM SOD 3.375 GM in D5W MINI-BAG PLUS 50 ML IV SCH ×4 (04:33→21:59)
[2019-10-15 05:45] LABS: HEMATOCRIT 28.4 % (36.0-47.0); HEMOGLOBIN 8.4 g/dl (12.0-15.5); MEAN CORPUSCULAR HEMOGLOBIN 24.9 pg (27.0-33.0); MEAN CORPUSCULAR HGB CONC 29.6 g/dl (32.0-36.5); PLATELET COUNT, AUTOMATED 320 10^3/uL (150-450); RED BLOOD COUNT 3.38 10^6/uL (4.00-5.40); WHITE BLOOD COUNT 8.2 10^3/uL (4.0-10.0)
[2019-10-15] MEDS: VANCOMYCIN HCL 750 MG, VIAL MATE ADAPTER 1 EACH in D5W 250 ML IV SCH (05:55)
[2019-10-15 06:00] VITALS: BP 110/71
[2019-10-15 06:00] LABS: BLOOD UREA NITROGEN 24 MG/DL (7-18); CARBON DIOXIDE LEVEL 26 MEQ/L (21-32); CHLORIDE LEVEL 109 MEQ/L (98-107); COMPLEMENT C3 92 MG/DL (90-180); COMPLEMENT C4 26 MG/DL (10-40); CREATININE FOR GFR 0.98 MG/DL (0.55-1.30); GLOMERULAR FILTRATION RATE 57.7 (>32); GLUCOSE, FASTING 109 MG/DL (70-100); POTASSIUM SERUM 4.6 MEQ/L (3.5-5.1); RHEUMATOID FACTOR QUANT < 10.0 IU/ML (<15.0); SODIUM LEVEL 139 MEQ/L (136-145); VANCOMYCIN LEVEL TROUGH 10.2 UG/ML (10.0-20.0)
--- NOTE | 2019-10-15 06:10 | PHACANCOPD ---
PHARMACY VANCOMYCIN DOSING Pt Demographics Demographics Patient Age:84 , Weight:46.800 , Gender: female Adjusted Body Weight Date: 10/14/19, Adjusted Body Weight: [46.8] Kg(ACTUAL WT) Events Past 24 Hours Events Past 24 Hours: NO: Dialysis, Diuretic Therapy, Change in CrCl, Fever, Elevation in WBC, Pending Diagnostics, Pending Procedures, Other Vancomycin Vancomycin indication: FEBRILE ILLNESS(EMPIRIC) Vancomycin Target Ranges: 15-20 mcg/ml Vancomycin Load Y/N: Yes Load Dose Date Time Vancomycin Load Dose: 1GM Date: 10/12 Time: 18:30 Vancomycin Dose Date: 10/15/19. Current Vancomycin Dose: [750MG Q18H] Intermittent Dosing?: No Labs Labs Item Value Date Time White Blood Count 8.2 10^3/uL 10/15/19 0515 Glomerular Filtration Rate 57.7 10/15/19 0515 Blood Urea Nitrogen 24 MG/DL H 10/15/19 0515 Creatinine 0.98 MG/DL 10/15/19 0515 Vancomycin Level Trough 10.2 UG/ML 10/15/19 0515 Vital Signs Label Value Date Time Patient Temperature 97.4 degrees F 10/14/19 2200 Temperature Source Oral 10/14/19 2200 Micro Microbiology 10/13/19 Blood Culture - Preliminary, Resulted No growth after 24 hours . All specim... 10/13/19 Respiratory Virus Panel (PCR) (CINDY) - Final, Complete 10/13/19 Blood Culture - Preliminary, Resulted No growth after 24 hours . All specim... Creatinine Clearance Date:10/14/19. Creatinine Clearance: [31.4].(CALCULATED) Assessment and Plan Maintaining Current Dose?: No Reason for dose change: Trough too low Pharmacist Note Pharmacist Note Date: 10/15/19. Pharmacist note:Trough of 10.2 is below target range. Dosing increased to 750mg q18h. Will monitor and make adjustments as needed. [facility] October 15, 2019 06:09
[2019-10-15] MEDS: FERROUS SULFATE 325MG TAB PO SCH ×2 (09:07→21:59)
[2019-10-15] MEDS: PANTOPRAZOLE 40MG TAB (PROTONIX) PO SCH ×2 (09:07→21:59)
[2019-10-15] MEDS: MULTIVITAMINS/MINERALS THERAP 1 TAB PO SCH (09:07)
[2019-10-15] MEDS: VITAMIN D 1,000 INTERNATIONAL UNITS TABLET PO SCH (09:07)
[2019-10-15] MEDS: ASPIRIN 81 MG CHEW TABLET PO SCH (09:07)
[2019-10-15] MEDS: CARVedilol 12.5 MG TAB PO SCH ×2 (09:09→22:01)
--- NOTE | 2019-10-15 10:49 | IPNPDOC ---
Text Note Date of Service The patient was seen on 10/15/19. 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 She states she is feeling good this morning, no new concerns. She is eating breakfast sitting up comfortably in a chair. She denies fevers, chills, night sweats, or confusion. PHYSICAL EXAMINATION: VITAL SIGNS: Please see below. GENERAL: Thin, elderly female in no acute distress HEENT: Normocephalic, atraumatic, moist mucous membranes NECK: Supple, no lymphadenopathy CARDIOVASCULAR: RRR, normal S1 and S2 RESPIRATORY: clear to auscultation bilaterally without wheezing. ABDOMIN: Soft, nontender, nondistended, positive bowel sounds EXTREMITIES: no edema or cyanosis SKIN: No rash NEURO: no focal deficits appreciated PSYCH: Mood and affect appropriate ASSESSMENT: 84-year-old female with multiple medical comorbidities with 2 recent hospitalizations for fever/Escherichia coli bacteremia is being readmitted for fever. PLAN: 1. Fever. Unknown etiology, possible infectious versus malignancy versus rheumatologic, repeat blood cultures pending, empiric antibiotics with zosyn day #3 - Case discussed with oncology, who does not think this is related to her cancer or cancer treatments - Rheumatologic work up pending, no joint pains or rashes. - Consulted ID for further recommendations 2. Hypertension. Continue Coreg. 3. Anemia. Continue iron supplementation 4. Hx of Adenocarcinoma of the ampulla of vater s/p Whipple procedure and chemotherapy with metastasis to the lungs DVT prophylaxis: Lovenox. GI prophylaxis: not indicated at this time Disposition: pending further work up of fever Attending attestation: I evaluated and examined the patient in person; I discussed the care with Resident in detail and agree with the plan above. VS,Fishbone, I+O VS, Fishbone, I+O Laboratory Tests 10/15/19 05:15 Vital Signs Date Time Temp Pulse Resp B/P (MAP) Pulse Ox O2 Delivery O2 Flow Rate FiO2 10/15/19 09:09 83 146/67 10/15/19 06:00 97.8 16 95 Room Air I&O- Last 24 Hours up to 6 AM 10/15/19 06:00 Intake Total 790 ml Output Total 400 ml Balance 390 ml MAHNAZ BOND D.O. October 15, 2019 10:49 ANG GUZMAN MD October 15, 2019 19:58
[2019-10-15 11:17] LABS: ALBUMIN 3.02 GM/DL (3.29-5.55); ALBUMIN % 51.2 % (55.8-66.1); ALPHA-1-GLOBULIN % 8.2 % (2.9-4.9); ALPHA-1-GLOBULINS 0.48 GM/DL (0.17-0.41); ALPHA-2-GLOBULINS 0.81 GM/DL (0.42-0.99); ALPHA-2-GLOBULINS % 13.7 % (7.1-11.8); BETA-1-GLOBULINS 0.35 GM/DL (0.28-0.60); BETA-2-GLOBULINS % 6.3 % (3.2-6.5); GAMMA GLOBULIN % 14.6 % (11.1-18.8)
[2019-10-15 11:18] LABS: BETA-2-GLOBULINS 0.37 GM/DL (0.19-0.55); GAMMA GLOBULINS 0.86 GM/DL (0.65-1.58)
[2019-10-15] MEDS ORDERED: MOM 30ML SUSPENSION UDC PO ONE (11:30)
[2019-10-15] MEDS ORDERED: ISOVUE-370 76% 100ML VIAL As Ordered ONE (13:38)
[2019-10-15 14:00] VITALS: BP 128/72
--- NOTE | 2019-10-15 15:14 | REP ---
CT ABDOMEN AND PELVIS WITH IV CONTRAST: TECHNIQUE: Axial contrast enhanced images from the lung bases to the pubic symphysis using 100 mL Isovue-370 intravenous contrast material with multiplanar reformations. COMPARISON: CT chest 10/13/[address] abdomen and pelvis 09/19/2019. In the visualized lung bases, there are multiple bilateral pulmonary nodules again seen. There is nodular pleural thickening inferiorly on the right. There is interstitial infiltrate in the right lower lobe. There is loculated pleural fluid inferiorly on the right. Linear pleural enhancement could represent neoplastic involvement versus empyema. No mass is seen in the liver. Multiple metallic surgical sutures and clips are seen in the right upper quadrant. Spleen is unremarkable. The adrenals are unremarkable. The pancreas is unchanged. Kidneys are unremarkable and unchanged. There is focal dilatation of the abdominal aorta just below the level of the renal arteries, unchanged. No adenopathy is seen in the abdomen or pelvis. There is no free air or free fluid and no evidence of abscess. There is no bowel wall thickening. Small cystic structure of the right ovary is unchanged. No pelvic mass is seen. IMPRESSION: Multiple metastatic nodules in the lungs. There is nodular thickening of the inferior right pleura. Diffuse interstitial infiltrate right lung base. There is loculated pleural fluid inferiorly on the right with enhancing rind. This likely represents either neoplastic involvement or empyema. No acute findings in the abdomen or pelvis. Electronically Signed by Leonard Burdick MD 10/15/2019 03:55 P
[2019-10-15 15:49] LABS: LDH LACTATE DEHYDROGENASE 114 U/L (84-246)
[2019-10-15 16:21] LABS: APPEARANCE, BODY FLUID CLOTTED (CLEAR); PLEURAL FL COLOR RED (COLORLESS); SOURCE, BODY FLUID PLEURAL
[2019-10-15 16:22] LABS: SOURCE, BODY FLUID ALBUMIN PLEURAL; SOURCE, BODY FLUID AMYLASE PLEURAL; SOURCE, BODY FLUID GLUCOSE PLEURAL; SOURCE, BODY FLUID LDH PLEURAL; SOURCE, BODY FLUID TOT PROTEIN PLEURAL; SOURCE, BODY FLUID pH PLEURAL
--- NOTE | 2019-10-15 19:41 | ECHO ---
DATE OF PROCEDURE: 10/14/2019 Date of : 1935 Age: 84 Gender: Female. Height: 62 inches Weight: 103 pounds Body surface area: 1.44 meters squared Inpatient: 4 lantry, room 4224 REFERRING PHYSICIAN: Dr. Kimberly Jorge INDICATION: Fever. MEASUREMENTS: 2D Measurements: RV: 3.7 cm LV: 3.9 cm Septum: 1.1 cm Posterior wall: 1.1 cm Aortic root: 2.9 cm LA: 3.4 cm LVEF: 75% Doppler Measurements: AV: 1.6 meters per second LVOT: 0.85 meters per second LVOT diameter: 1.6 cm MV-E: 107, A: 121, EA ratio: 0.9 Early mitral deceleration time: 182 milliseconds E prime medial: 5.6, A prime medial: 8, E prime lateral: 6. Average E/E prime ratio: 18/PCWP: 24 mmHg PV: 0.9 meters per second Pulmonary artery acceleration time: 121 milliseconds RVSP: 29 mmHg IVC: 1 cm COMMENTS: Normal sinus rhythm without intraventricular conduction disturbance. M-mode and two-dimensional echocardiography was performed with pulsed, continuous wave, color flow and tissue Doppler studies. Left ventricular size within normal limits with left ventricular wall thickness upper limits of normal. LV wall motion was hyperkinetic. Normal left atrial size with grade 1 LV diastolic dysfunction and a mildly elevated mean left atrial pressure. Normal right heart chamber sizes and motion and estimated pulmonary arterial pressure upper limits of normal. Normal inferior vena cava (IVC) size and collapse against an elevated central venous pressure. Mild aortic valvular sclerosis without stenosis and only trace insufficiency. Normal aortic dimensions. Mild degenerative changes of the mitral valvular apparatus without inflow tract obstruction and only mild insufficiency. Normal appearing tricuspid valve with mild insufficiency. No apparent intracardiac mass or pericardial effusion.
[2019-10-15 22:00] VITALS: BP 151/75
[2019-10-15] MEDS: ENOXAPARIN 40MG/0.4ML SYRINGE (J1650 PER 10MG) SC SCH (22:00)
[2019-10-16] MEDS ORDERED: VANCOMYCIN HCL 750 MG, VIAL MATE ADAPTER 1 EACH in D5W 250 ML IV SCH ×3
[2019-10-16] MEDS: PIPERACILLIN/TAZOBACTAM SOD 3.375 GM in D5W MINI-BAG PLUS 50 ML IV SCH ×4 (03:58→21:54)
[2019-10-16 06:00] VITALS: BP 150/83
[2019-10-16 06:53] LABS: HEMATOCRIT 29.9 % (36.0-47.0); HEMOGLOBIN 9.1 g/dl (12.0-15.5); MEAN CORPUSCULAR HGB CONC 30.4 g/dl (32.0-36.5); MEAN CORPUSCULAR VOLUME 82.1 fl (80.0-96.0); PLATELET COUNT, AUTOMATED 346 10^3/uL (150-450); RED BLOOD COUNT 3.64 10^6/uL (4.00-5.40); WHITE BLOOD COUNT 6.2 10^3/uL (4.0-10.0)
[2019-10-16 07:23] LABS: BLOOD UREA NITROGEN 13 MG/DL (7-18); CALCIUM LEVEL 8.6 MG/DL (8.8-10.2); CARBON DIOXIDE LEVEL 29 MEQ/L (21-32); CHLORIDE LEVEL 105 MEQ/L (98-107); GLOMERULAR FILTRATION RATE > 60.0 (>32); GLUCOSE, FASTING 95 MG/DL (70-100); POTASSIUM SERUM 4.7 MEQ/L (3.5-5.1); SODIUM LEVEL 140 MEQ/L (136-145)
[2019-10-16] MEDS: PANTOPRAZOLE 40MG TAB (PROTONIX) PO SCH ×2 (09:23→20:47)
[2019-10-16] MEDS: MULTIVITAMINS/MINERALS THERAP 1 TAB PO SCH (09:23)
[2019-10-16] MEDS: ASPIRIN 81 MG CHEW TABLET PO SCH (09:23)
[2019-10-16] MEDS: VITAMIN D 1,000 INTERNATIONAL UNITS TABLET PO SCH (09:23)
[2019-10-16] MEDS: FERROUS SULFATE 325MG TAB PO SCH ×2 (09:23→20:47)
[2019-10-16] MEDS: CARVedilol 12.5 MG TAB PO SCH ×2 (09:27→20:54)
[2019-10-16 09:30] VITALS: BP 198/96
[2019-10-16 10:46] VITALS: BP 144/72
[2019-10-16] MEDS ORDERED: MOM 30ML SUSPENSION UDC PO PRN (11:15)
--- NOTE | 2019-10-16 11:16 | REP ---
RIGHT UPPER QUADRANT ULTRASOUND: Real-time sonographic evaluation of right upper quadrant performed. The patient has had prior cholecystectomy. There is no intrahepatic or extrahepatic biliary dilatation, common bile duct measuring 2 mm. Liver is grossly unremarkable, with no gross mass. Pancreas could not be visualized due to overlying bowel gas. Right kidney demonstrates normal size 9.2 cm in length with no hydronephrosis. Complex right pleural fluid is seen. 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 IMPRESSION: Status post cholecystectomy. No biliary dilatation or free fluid. Complex right pleural fluid. Patient had diagnostic thoracentesis yesterday. Electronically Signed by Leonard Burdick MD 10/16/2019 12:34 P
--- NOTE | 2019-10-16 11:35 | IPNPDOC ---
Text Note Date of Service The patient was seen on 10/16/19. 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 She states she is feeling well this morning, no new concerns. No back pain from the thoracentesis. No dyspnea or chest pain. She denies fevers, chills, night sweats, or confusion. PHYSICAL EXAMINATION: VITAL SIGNS: Please see below. GENERAL: Thin, elderly female in no acute distress HEENT: Normocephalic, atraumatic, moist mucous membranes NECK: Supple, no lymphadenopathy CARDIOVASCULAR: RRR, normal S1 and S2 RESPIRATORY: clear to auscultation bilaterally without wheezing. ABDOMIN: Soft, nontender, nondistended, positive bowel sounds EXTREMITIES: no edema or cyanosis SKIN: No rash NEURO: no focal deficits appreciated PSYCH: Mood and affect appropriate ASSESSMENT: 84-year-old female with multiple medical comorbidities with 2 recent hospitalizations for fever/Escherichia coli bacteremia is being readmitted for fever. PLAN: 1. Fever. Unknown etiology, possible infectious versus malignancy versus rheumatologic - Repeat blood cultures negative at 48 hours, empiric antibiotics with zosyn day #4 - Case discussed with oncology, who does not think this is related to her cancer or cancer treatments - Rheumatologic work up pending, no joint pains or rashes. - ID consulted, appreciated their recommendations - CT abdomen/pelvis revealed a loculated right pleural effusion, drained by IR, very little fluid drained, culture and pathology pending - Abdominal US pending 2. Hypertension. Continue Coreg. 3. Anemia. Continue iron supplementation 4. Hx of Adenocarcinoma of the ampulla of vater s/p Whipple procedure and chemotherapy with metastasis to the lungs DVT prophylaxis: Lovenox. GI prophylaxis: not indicated at this time I called and updated the patient's daughter this morning. Disposition: pending further work up of fever Attending attestation: I evaluated and examined the patient in person; I discussed the care with Resident in detail and agree with the plan above. VS,Fishbone, I+O VS, Fishbone, I+O Laboratory Tests 10/16/19 05:54 Vital Signs Date Time Temp Pulse Resp B/P (MAP) Pulse Ox O2 Delivery O2 Flow Rate FiO2 10/16/19 10:46 144/72 (96) 10/16/19 09:30 77 10/16/19 06:00 98.8 18 95 Room Air I&O- Last 24 Hours up to 6 AM 10/16/19 06:00 Intake Total 920 ml Output Total 100 ml Balance 820 ml MAHNAZ BOND D.O. October 16, 2019 11:35 ANG GUZMAN MD October 18, 2019 16:12
[2019-10-16 14:00] VITALS: BP 160/80
--- NOTE | 2019-10-16 14:10 | CR ---
DATE OF CONSULTATION: 10/15/2019 Asked to consult by hospitalist for evaluation of persistent fever in an 84-year-old with a history of Escherichia (E) coli bacteremia on 09/19/2019. HISTORY OF PRESENT ILLNESS: Mrs. 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 The patient is on chemotherapy with gemcitabine and Abraxane which she receives every 2 weeks. The patient's last chemotherapy was on 09/16/2019. She is under the care of Dr. Morocho at the [facility]. She presented to the emergency room on 09/19/2019 with a low-grade fever of 99.9. Blood cultures were ordered and were positive for E-coli bacteremia in two sets. She was admitted on 09/20/2019, received IV antibiotics combination of levofloxacin, cefepime and discharged home. The patient was readmitted the next day with recurrent fevers on 09/24/2019 and discharged on 09/27/2019 after she received a course of intravenous (IV) Zosyn. The patient was home until 10/13/2019, when she presented with again recurrent fever up to 101.7 associated with confusion. She had a few days of sneezing. Denied any cough or shortness of breath. No chest pain. The patient does complain of constipation but no nausea, vomiting or diarrhea. No abdominal pain. The patient states she has pain in her left shoulder which is new. Her past medical history is significant for adenocarcinoma of the ampulla of Vater with metastasis to the lung biopsy confirmed in July of 2018. She had been treated with Whipple procedure in March of 2017, followed by IV chemotherapy with gemcitabine until November of 2017. She then took a break of chemotherapy and resumed when was diagnosed with metastatic lung disease in July of 2018. She is due for restaging in September of 2019. 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 PAST SURGICAL HISTORY: Whipples procedure in March of 2017 for pancreatic cancer, cholecystectomy, tubal ligation. SOCIAL HISTORY: She denies any smoking, drug use. She lives with her . She has a daughter, who is her healthcare proxy. Her family history significant for lung cancer. ALLERGIES: LATEX and TETRACYCLINE gives her mouth sore. MEDICATIONS: - Milk of Magnesia 30 mL by mouth as needed constipation - aspirin 81 mg daily - vitamin D 1000 units daily - multivitamin one tablet daily - Tylenol as needed fever - She received vancomycin from 10/13/2019 to 10/15/2019. That was discontinued. - Zosyn 3.375 grams intravenously every 6 hours currently day #3 - Lovenox 40 mg subcutaneously at bedtime - Coreg 12.5 mg by mouth twice a day - ferrous sulfate 325 mg by mouth twice a day - pantoprazole 40 mg by mouth twice a day LABORATORY DATA: White count on admission was 18.5, today white count is 8.2, hemoglobin 8.4, hematocrit 28.4, platelets 320. ESR 36. Sodium 139, potassium 4.6, chloride 109, bicarbonate 26, BUN 24, creatinine 0.98, glucose 109, calcium 8. LDH 114, bilirubin 1.4, AST 38, ALT 32, alkaline phosphatase 190. CRP 8.62, which has increased compared to when 10/13/2019, which was 1.76. Blood cultures from 10/13/2019 report are no growth. Peripheral 10/13/2019 no growth. 09/25/2019 blood cultures report was negative and peripheral was negative. 09/24/2019 two sets were no growth. Respiratory panel, COVID testing was done on 09/24/2019 were negative. 09/19/2019 two sets of blood cultures were positive for E-coli pansensitive including ampicillin, and 09/20/2019 blood culture was no growth. Procalcitonin level on 09/20/2019 was 36.31, 09/22/2019 10.06 and 09/25/2019 1.86. Procalcitonin this admission is pending. Respiratory panel was repeated on 10/13/2019 and was negative. IMAGING STUDIES: Reviewed CT chest, abdomen, and pelvis with Dr. Burdick, who felt that there may be a loculated pleural fluid on the right side with ring-enhancing which could be neoplastic or empyema. The patient also has multiple metastatic nodules of the lung and nodular thickening of the right pleura. 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 There is also a small right subpulmonic pleural effusion and small amount of subdiaphragmatic perihepatic ascites along with irregular pleural thickening at the right lung base. These are unchanged from 09/24/2019. On physical exam, she is a frail elderly female in no acute distress. Temperature is 101, pulse 83, respirations 18, oxygen saturation 98% on room air. Blood pressure 151/75. Heart: Normal S1 and S2. No murmurs, rubs, or gallops appreciated. Chest with an [id number]-Apot and no redness or tenderness. Lungs: Diminished breath sounds at the bases bilaterally. No wheezes or rhonchi. Abdomen: Soft, nontender. No visceromegaly. Midline scar well-healed. Extremities: Dry. No clubbing, cyanosis, or edema. No rashes. No calf tenderness. Oropharynx is dry with no lesions. Neurologic: Exam normal. Alert, oriented times three. The patient is able to give a history. She has generalized weakness. IMPRESSION: This is an 84-year-old female with a history of metastatic pancreatic cancer to the lungs on chemotherapy with gemcitabine and Abraxane, last chemotherapy was on 09/16/2019. The patient had E-coli bacteremia on 09/19/2019 and has had recurrent fevers since then. Her urinalysis was benign. Chest CT was concerning for a loculated empyema. She went down for a thoracentesis today. Dr. Burdick was not able to aspirate too much fluid. It was sent for evaluation, cytology and culture, but lesion could be suggestive of metastatic lung cancer rather than empyema. Review of CT is suggestive of possible perihepatic fluid. I suspect that the patient has an intra-abdominal abscess as the cause of recurrent fevers that have not been drained, and therefore, I would suggest obtaining an upper abdominal ultrasound to look at possible intra-abdominal abscess. Other possibility that can cause persistent fever may be metastatic cancer with worsening pulmonary mets. Less likely [id number] infection as her repeat blood cultures have been negative and port poor cultures have been negative. Echocardiogram did not show any evidence of endocarditis that was done on 10/14/[address] Oneal normal-appearing tricuspid valve with mild insufficiency, mild aortic valve sclerosis without stenosis, and mild degenerative changes of the mitral valve without any evidence of vegetation. PLAN: Continue with IV Zosyn at current dose of 3.375 grams every 6 hours. Will obtain upper abdominal ultrasound to rule out intra-abdominal abscess, which is where I suspect the source of E-coli was. Will discuss the case with Dr. Morocho as her pulmonary mets seems to have worsened and the lesion that was aspirated from her chest may be consistent with carcinomatosis. Gram stain and fluid culture from the right pleural lesion are pending and cytology is pending. MTDD
[2019-10-16] MEDS: CALCIUM CARBONATE 500 MG CHEW U/D PO PRN (15:34)
[2019-10-16] MEDS: SODIUM CHLORIDE 0.9% INJ 10 ML SYR IV PRN ×2 (16:53→23:10)
[2019-10-16 20:00] VITALS: BP 182/90
[2019-10-16] MEDS: ENOXAPARIN 40MG/0.4ML SYRINGE (J1650 PER 10MG) SC SCH (20:54)
[2019-10-16 22:00] VITALS: BP 178/88
[2019-10-17] MEDS: PIPERACILLIN/TAZOBACTAM SOD 3.375 GM in D5W MINI-BAG PLUS 50 ML IV SCH ×2 (04:17→10:06)
[2019-10-17] MEDS: SODIUM CHLORIDE 0.9% INJ 10 ML SYR IV PRN (05:41)
[2019-10-17] MEDS: ACETAMINOPHEN TAB 650MG DOSE (2X325MG) PO PRN (05:45)
[2019-10-17 06:00] VITALS: BP 158/84
[2019-10-17 06:22] LABS: HEMATOCRIT 30.1 % (36.0-47.0); HEMOGLOBIN 8.9 g/dl (12.0-15.5); MEAN CORPUSCULAR HEMOGLOBIN 24.4 pg (27.0-33.0); MEAN CORPUSCULAR HGB CONC 29.6 g/dl (32.0-36.5); MEAN CORPUSCULAR VOLUME 82.5 fl (80.0-96.0); PLATELET COUNT, AUTOMATED 327 10^3/uL (150-450); RED BLOOD COUNT 3.65 10^6/uL (4.00-5.40); WHITE BLOOD COUNT 5.7 10^3/uL (4.0-10.0)
[2019-10-17 06:50] LABS: BLOOD UREA NITROGEN 12 MG/DL (7-18); CALCIUM LEVEL 8.7 MG/DL (8.8-10.2); CARBON DIOXIDE LEVEL 27 MEQ/L (21-32); CHLORIDE LEVEL 104 MEQ/L (98-107); CREATININE FOR GFR 0.88 MG/DL (0.55-1.30); GLOMERULAR FILTRATION RATE > 60.0 (>32); GLUCOSE, FASTING 118 MG/DL (70-100); POTASSIUM SERUM 4.2 MEQ/L (3.5-5.1); SODIUM LEVEL 139 MEQ/L (136-145)
[2019-10-17] MEDS ORDERED: SODIUM CHLORIDE 0.9% INJ 10 ML SYR IV SCH (09:00)
[2019-10-17] MEDS: ASPIRIN 81 MG CHEW TABLET PO SCH (10:04)
[2019-10-17 10:05] VITALS: BP 178/78
[2019-10-17] MEDS: CARVedilol 12.5 MG TAB PO SCH (10:05)
[2019-10-17] MEDS: MULTIVITAMINS/MINERALS THERAP 1 TAB PO SCH (10:05)
[2019-10-17] MEDS: FERROUS SULFATE 325MG TAB PO SCH (10:05)
[2019-10-17] MEDS: VITAMIN D 1,000 INTERNATIONAL UNITS TABLET PO SCH (10:05)
[2019-10-17] MEDS: PANTOPRAZOLE 40MG TAB (PROTONIX) PO SCH (10:05)
[2019-10-17] MEDS ORDERED: AUGM875T28 PO (10:10)
--- NOTE | 2019-10-17 11:40 | DS.PDOC ---
Discharge Summary General Date of Admission October 13, 2019 at 16:16 Date of Discharge 10/17/2019 Primary Care Physician: Randy Manriquez MD Attending Physician: ANG GUZMAN MD Specialist/Consultants Involve: Marilu Hollis MD Discharge Summary PROCEDURES PERFORMED DURING STAY: R sided thoracentesis ADMITTING DIAGNOSES: 1. Fever 2. HTN 3. Anemia 4. 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 Fever, likely secondary to R sided pleural fluid vs abscess 2. HTN 3. Anemia 4. 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 Patient has been hospitalized twice for recurrent fevers, initial hospitalization showed Escherichia coli bacteremia, follow-up hospitalization had negative blood cultures. Patient has been treated with a prolonged course of antibiotics for the Escherichia coli bacteremia, currently confused in the emergency department, unsure why and how she ended up here. Patient showed similar confusion during her previous hospitalizations due to the fever infection. Patient has no complaints at this time, only change she has noticed is sneezing for the past 2 days. In the ER. She is found to have a fever of 101.7, no obvious source of infection at this time. She denies any shortness of breath, chest pain, nausea, vomiting, no pain, diarrhea or constipation. HOSPITAL COURSE: Patient was admitted to hospital and started on antibiotics with IV vancomycin and Zosyn. The MRSA screen was negative and the vancomycin was discontinued. Blood cultures were negative. Chest x-ray revealed known metastatic lesions and a small right sided pleural effusion. A follow up chest CT showed the same. An abdominal CT a few days later revealed the pleural effusion to be loculated and rim-enhancing. Drainage was attempted and a small amount of fluid was obtained from the sample, so far microbiology and pathology have been negative. Abdominal U/S showed surgical changes, otherwise negative. . She has completed 4 days of IV Zosyn and will be discharged on 10 days of by mouth Augmentin. She'll follow-up with Dr. Cheng to determine if further workup or treatment is indicated. She'll also follow up with her oncologist as her fevers may be related to her cancer treatment or progression of her malignancy. DISCHARGE MEDICATIONS: Please see below. ALLERGIES: Please see below. PHYSICAL EXAMINATION ON DISCHARGE: VITAL SIGNS: Please see below. GENERAL: Thin, elderly female in no acute distress HEENT: Normocephalic, atraumatic, moist mucous membranes NECK: Supple, no lymphadenopathy CARDIOVASCULAR: RRR, normal S1 and S2 RESPIRATORY: clear to auscultation bilaterally without wheezing. ABDOMIN: Soft, nontender, nondistended, positive bowel sounds EXTREMITIES: no edema or cyanosis SKIN: No rash NEURO: no focal deficits appreciated PSYCH: Mood and affect appropriate LABORATORY DATA: Please see below. IMAGIN/3 CXR: 1. Small/moderate right pleural effusion and right lower lobe passive atelectasis again noted but mildly improved. 2. Scattered round lesions most compatible with metastatic disease similar to prior examination. 10/12 CT Chest: 1. Diffuse metastatic disease with lesions measuring up to approximately 2.4 cm maximal diameter and suggestions for lymphangitic carcinomatosis. 2. Small right subpulmonic pleural effusion and small amount of subdiap hragmatic perihepatic ascites along with irregular pleural thickening at the right lung base. These findings are essentially unchanged compared to 09/24/2019. 10/14 CT Abd/pelvis: Multiple metastatic nodules in the lungs. There is nodular thickening of the inferior right pleura. Diffuse interstitial infiltrate right lung base. There is loculated pleural fluid inferiorly on the right with enhancing rind. This likely represents either neoplastic involvement or empyema. No acute findings in the abdomen or pelvis. 10/15 US Abdomen: Status post cholecystectomy. No biliary dilatation or free fluid. Complex right pleural fluid. Patient had diagnostic thoracentesis yesterday. PROGNOSIS: Fair ACTIVITY: As tolerated. DIET: As tolerated. DISCHARGE PLAN: Home with home health DISCHARGE INSTRUCTIONS: 1. Follow-up with your PCP in 7-10 days 2. Please complete 10 day course of Augmentin. Follow-up with Dr. Hollis in one week. 3. If your symptoms return or your condition worsens, please call your PCP or return to the ED for further evaluation. ITEMS TO FOLLOWUP ON ON OUTPATIENT: 1. Recurrent fevers, f/u infectious disease and oncology DISCHARGE CONDITION: Stable. TIME SPENT ON DISCHARGE: Greater than 35 minutes. Attending attestation: I evaluated and examined the patient in person; I discussed the care with Resident in detail and agree with the plan above. Vital Signs/I&Os Vital Signs Date Time Temp Pulse Resp B/P (MAP) Pulse Ox O2 Delivery O2 Flow Rate FiO2 10/17/19 10:05 68 178/78 10/17/19 06:00 98.0 18 96 10/16/19 14:00 Room Air I&O- Last 24 Hours up to 6 AM 10/17/19 06:00 Intake Total 1140 ml Output Total 100 ml Balance 1040 ml Laboratory Data Labs 24H Laboratory Tests 2 10/17/19 06:04: Nucleated Red Blood Cells % (auto) 0.0, Anion Gap 8, Glomerular Filtration Rate > 60.0, Calcium Level 8.7L CBC/BMP Laboratory Tests 10/17/19 06:04 Microbiology Microbiology 10/15/19 Gram Stain - Final, Complete 10/15/19 Body Fluid Culture - Final, Complete 10/13/19 Blood Culture - Preliminary, Resulted No Growth after 72 hours. All specime... 10/13/19 Respiratory Virus Panel (PCR) ([facility]) - Final, Complete 10/13/19 Blood Culture - Preliminary, Resulted No Growth after 72 hours. All specime... Discharge Medications Scheduled Amoxicillin/Potassium Clav (Augmentin 875-125 Tablet) 1 Each Tablet, 1 TAB PO BID Aspirin (Aspirin) 81 Mg Tab.chew, 81 MG PO DAILY, (Reported) Calcium Carbonate (Calcium) 600 Mg Tablet, 600 MG PO DAILY, (Reported) Carvedilol (Carvedilol) 12.5 Mg Tablet, 12.5 MG PO BID, (Reported) Cholecalciferol (Vitamin D3) (Vitamin D3) 1,000 Unit Tablet, 1,000 UNITS PO DAILY, (Reported) Ferrous Sulfate (Ferrous Sulfate) 325 Mg Tablet.dr, 325 MG PO BID, (Reported) Multivitamins (Thera M Plus Tablet) 1 Each Tablet, 1 TAB PO DAILY, (Reported) Pantoprazole Sodium (Pantoprazole Sodium) 40 Mg Tablet.dr, 40 MG PO BID, (Reported) Scheduled PRN Tizanidine HCl (Tizanidine HCl) 2 Mg Tablet, 2 MG PO TID PRN for MUSCLE SPASMS, (Reported) Allergies Coded Allergies: latex (Verified Allergy, Mild, itching, 09/24/19) tetracycline (Verified Adverse Reaction, Intermediate, mouth sores, 09/24/19) MAHNAZ BOND D.O. October 17, 2019 11:40 ANG GUZMAN MD October 18, 2019 16:18
--- NOTE | 2019-10-17 13:00 | REP ---
ULTRASOUND-GUIDED RIGHT THORACENTESIS The procedure was performed under the direct supervision of Dr. Burdick. The risks and benefits of the procedure were explained to the patient and informed consent was obtained. The right pleural effusion was localized using ultrasound guidance. The skin was prepped and draped in a sterile fashion. 1% lidocaine was used as a local anesthetic. Using ultrasound guidance an 18-gauge needle was inserted and advanced into the fluid. However, only about 0.5 ml of red colored fluid was able to be withdrawn. The patient tolerated the procedure well and there were no immediate complications. After the appropriate amount of monitored convalescence the patient was discharged from the department. Electronically Signed by JL De Los Santos 10/16/2019 04:35 P Electronically Signed by Leonard Burdick MD 10/17/2019 12:51 P
[2019-10-18 00:06] LABS: ANTINUCLEAR ANTIBODIES DIRECT Negative (Negative)
== END 2019-10-17 12:07 | disposition home health service (06) | DRG 187 ==
LOC: M ED 13:18 → EDBD 13:18 → M ED INP 16:16 → ENRESERV 17:29 → M MSPAV 18:05
PROVIDERS: ADMIT Internal Medicine; ATTEND Internal Medicine
PROC: 0W993ZX Drainage of Right Pleural Cavity, Percutaneous Approach, Diagnostic (ICD-10-PCS; principal; 2019-10-15 15:30)
DX: J90 Pleural effusion, not elsewhere classified (principal); C24.1 Malignant neoplasm of ampulla of Vater; C78.01 Secondary malignant neoplasm of right lung; C78.02 Secondary malignant neoplasm of left lung; R50.9 Fever, unspecified; I10 Essential (primary) hypertension; D50.9 Iron deficiency anemia, unspecified; Z90.49 Acquired absence of other specified parts of digestive tract; Z79.82 Long term (current) use of aspirin; Z79.899 Other long term (current) drug therapy; Z88.1 Allergy status to other antibiotic agents; Z91.040 Latex allergy status

== ENCOUNTER → 2019-11-01 | Outpatient (REF) | payer MEDICARE, MEDICAID ==
[~2019-11-01] MED LIST changes: +AUGM875T28 PO; +LIDO1PAD TOP
[2019-11-01 10:45] LABS: BASO # 0.1 10^3/uL (0.0-0.2); BASO % 1.6 % (0.0-1.0); EOS # 0.2 10^3/uL (0.0-0.5); EOS % 5.5 % (0.0-3.0); HEMATOCRIT 31.6 % (36.0-47.0); HEMOGLOBIN 9.2 g/dl (12.0-15.5); LYMPH # 0.9 10^3/uL (1.5-5.0); LYMPH % 20.7 % (24.0-44.0); MEAN CORPUSCULAR HEMOGLOBIN 24.4 pg (27.0-33.0); MEAN CORPUSCULAR HGB CONC 29.1 g/dl (32.0-36.5); MEAN CORPUSCULAR VOLUME 83.8 fl (80.0-96.0); MONO # 0.7 10^3/uL (0.0-0.8); MONO % 15.9 % (0.0-5.0); NEUTROPHILS # 2.4 10^3/uL (1.5-8.5); NEUTROPHILS % 56.1 % (36.0-66.0); PLATELET COUNT, AUTOMATED 351 10^3/uL (150-450); RED BLOOD COUNT 3.77 10^6/uL (4.00-5.40); WHITE BLOOD COUNT 4.4 10^3/uL (4.0-10.0)
[2019-11-01 11:05] LABS: ERYTHROCYTE SEDIMENTATION RATE 45 mm/hr (0-30)
[2019-11-01 11:14] LABS: ALBUMIN 2.9 GM/DL (3.2-5.2); ALT/SGPT 18 U/L (12-78); BILIRUBIN,TOTAL 0.4 MG/DL (0.2-1.0); BLOOD UREA NITROGEN 25 MG/DL (7-18); C REACTIVE PROTEIN QUANTITATIV 0.45 MG/DL (0.00-0.30); CALCIUM LEVEL 8.9 MG/DL (8.8-10.2); CARBON DIOXIDE LEVEL 27 MEQ/L (21-32); CHLORIDE LEVEL 107 MEQ/L (98-107); CREATININE FOR GFR 0.79 MG/DL (0.55-1.30); GLOMERULAR FILTRATION RATE > 60.0 (>32); GLUCOSE, FASTING 180 MG/DL (70-100); POTASSIUM SERUM 4.1 MEQ/L (3.5-5.1); SODIUM LEVEL 142 MEQ/L (136-145); TOTAL PROTEIN 6.5 GM/DL (6.4-8.2)
== END ==
LOC: M SHH 10:09
PROVIDERS: ATTEND Internal Medicine Infectious Disease
DX: B96.20 Unspecified Escherichia coli [E. coli] as the cause of diseases classified elsewhere (principal)

== ENCOUNTER → 2019-12-11 | Outpatient (CLI) | payer MEDICARE, MEDICAID ==
[~2019-12-11] MED LIST changes: +B COCAP4 PO; +ISOVUE-370 76% 100ML VIAL As Ordered ONE; +OCUVCAP PO
--- NOTE | 2019-12-11 11:42 | REP ---
Clinical: Breast cancer. Technique: Axial contrast enhanced images from the thoracic inlet to the upper abdomen using 75 ml Isovue 370 intravenous contrast material with coronal and sagittal re-formations. Comparison: 10/13/2019. Findings: There appears to be progression of metastatic disease including mild enlargement to the already known multifocal bilateral metastases which measure up to approximately 2.9 cm maximal diameter along with small new metastases in the lower lobes which show mild increase in size including 8 mm nodule in the left lower lobe (image 65) which previously measured approximately 4 mm. Moderate right pleural effusion is also identified and similar to prior examination. Mediastinal adenopathy and soft tissue appears similar to prior examination as well. Thoracic aorta, pulmonary vasculature, and heart/pericardium remains stable with atherosclerotic disease again noted. No pericardial effusion. The osseous structures are intact without obvious focal abnormality. Significant collateral vascular enhancement primarily noted in the left thoracic inlet and left anterior chest wall through the axilla is again noted. Impression: Findings suggest progression of metastatic disease as described above with slight increase to the already identified lesions measuring up to 2.9 cm and few lower lobe lesions increased in size. Adenopathy and right effusion again noted and similar to prior examination. Electronically Signed by Abdirashid Galvan MD 12/11/2019 11:33 A
--- NOTE | 2019-12-11 14:41 | REP ---
WHOLE BODY RADIONUCLIDE BONE SCAN: HISTORY: Right breast cancer. No comparison bone scan. Comparison is made with chest CT imaging from the same date December 11, 2019. TECHNIQUE: 20.1 mCi technetium 99m MDP is injected and standard whole body bone scan imaging was acquired. SCINTIGRAPHIC FINDINGS: There is uptake in bilateral kidneys and in the urinary bladder as expected. There is abnormal radiotracer deposition in the left side of the thoracic spine at what appears to be the 6th thoracic vertebra. There is slightly increased uptake at the 5th thoracic vertebra on the left side possibly involving the costovertebral junction. No bony destructive lesion is visible on today's CT study in this location. This location does however correspond to the location of a soft tissue metastatic deposit in the posterior mediastinum associated with the posterior wall of the esophagus and the left anterior vertebral column and the adjacent descending aorta. There is some adjacent sclerosis visible radiographically in the left anterior margin of the T6 vertebral body. No other focus of abnormal skeletal uptake is seen. IMPRESSION: There is evidence of bone involvement in the soft tissue lesion in the posterior mediastinum at the level of T6 and T5 anteriorly to the left of midline. Otherwise negative radionuclide bone scan. Electronically Signed by Clemente Saleh MD 12/11/2019 03:11 P
== END ==
LOC: M RAD 10:01
PROVIDERS: ATTEND Specialist
DX: C50.911 Malignant neoplasm of unspecified site of right female breast (principal); M89.9 Disorder of bone, unspecified; R59.0 Localized enlarged lymph nodes; J90 Pleural effusion, not elsewhere classified; C78.01 Secondary malignant neoplasm of right lung; C78.02 Secondary malignant neoplasm of left lung
CPT/HCPCS: 71260; 78306; A9503; Q9967

== ENCOUNTER → 2019-12-27 | Outpatient (CLI) | payer MEDICARE, MEDICAID ==
[~2019-12-27] MED LIST changes: +AMLO1TAB24 PO; -AMLO5TAB6 PO; -ASPI81TA85 PO; +ASPI81TA86 PO; -CALC600T5 PO; +CALC600T61 PO; +D31000TA2 PO; -ISOVUE-370 76% 100ML VIAL As Ordered ONE; +MAGICMW SSP; +PANT40TA29 PO; -PANT40TA3 PO; -VITAD1000T PO; +ZOLO50TA PO
== END ==
LOC: M ONCR 12:56
PROVIDERS: ATTEND Radiology Radiation Oncology
DX: C79.51 Secondary malignant neoplasm of bone (principal)

== ENCOUNTER 2019-12-30 14:03 | Outpatient (RCR) | payer MEDICARE, MEDICAID ==
[~2019-12-30 14:03] MED LIST changes: -MAGICMW SSP; -ZOLO50TA PO
== END 2020-01-10 ==
LOC: M ONCR 14:03
PROVIDERS: ATTEND Radiology Radiation Oncology
DX: C79.51 Secondary malignant neoplasm of bone (principal)

== ENCOUNTER → 2020-01-29 | Outpatient (REF) | payer MEDICARE, MEDICAID ==
[~2020-01-29] MED LIST changes: +MAGICMW SSP; +ZOLO50TA PO
[2020-01-29 17:43] LABS: HEMATOCRIT 36.6 % (36.0-47.0); HEMOGLOBIN 11.1 g/dl (12.0-15.5); MEAN CORPUSCULAR HEMOGLOBIN 23.6 pg (27.0-33.0); MEAN CORPUSCULAR HGB CONC 30.3 g/dl (32.0-36.5); MEAN CORPUSCULAR VOLUME 77.9 fl (80.0-96.0); PLATELET COUNT, AUTOMATED 349 10^3/uL (150-450); WHITE BLOOD COUNT 3.5 10^3/uL (4.0-10.0)
[2020-01-29 18:47] LABS: ALT/SGPT 15 U/L (12-78); BILIRUBIN,TOTAL 0.6 MG/DL (0.2-1.0); BLOOD UREA NITROGEN 19 MG/DL (7-18); CALCIUM LEVEL 9.3 MG/DL (8.8-10.2); CARBON DIOXIDE LEVEL 34 MEQ/L (21-32); CHLORIDE LEVEL 100 MEQ/L (98-107); CREATININE FOR GFR 0.83 MG/DL (0.55-1.30); FREE T4 1.08 NG/DL (0.76-1.46); GLOMERULAR FILTRATION RATE > 60.0 (>32); GLUCOSE, FASTING 120 MG/DL (70-100); POTASSIUM SERUM 4.5 MEQ/L (3.5-5.1); SODIUM LEVEL 138 MEQ/L (136-145); TOTAL PROTEIN 6.5 GM/DL (6.4-8.2)
== END ==
LOC: M LABDRWAD 16:57
PROVIDERS: ATTEND Family Medicine
DX: R63.0 Anorexia (principal); E03.9 Hypothyroidism, unspecified
CPT/HCPCS: 80053; 84439; 84443; 85027; G0463

== ENCOUNTER 2020-02-03 09:39 | Outpatient (RCR) | payer MEDICARE, MEDICAID ==
[~2020-02-03 09:39] MED LIST changes: -MAGICMW SSP; -ZOLO50TA PO
[2020-02-03] MEDS ORDERED: MAGICMW SSP (10:30)
[2020-02-06] MEDS ORDERED: HYDR-3713 PO (10:55)
[2020-02-06] MEDS ORDERED: ZOLO50TA PO (11:40)
== END 2020-02-10 ==
LOC: M ONCR 09:39
PROVIDERS: ATTEND General Practice
DX: C79.51 Secondary malignant neoplasm of bone (principal); Z91.040 Latex allergy status; Z88.1 Allergy status to other antibiotic agents